=== PATIENT | female | born 1985 | race Caucasian/White ===

== ENCOUNTER 2016-09-16 12:07 | Emergency (ER) | payer SELFPAY ==
[~2016-09-16] VITALS: Ht 160 cm; Wt 113.4 kg
[~2016-09-16 12:07] MED LIST: AC325T PO; ACET-789 PO; ALB0.5V; ALBU17AE23; ALBU17AE23 INH; ALBU17AE3; ALBU17AE3 IH; ALPR.25T PO; ALPR1T PO; ALPR2TAB2 PO; AMOX-97 PO; AMOX500C2 PO; AZIT-21 PO; AZTH250C PO; BUDE6HFA; CEFD300C3 PO; CEFP250T2; CEFU250T PO; CEFU250T11 PO; CEPH-507 PO; CEPH500C PO; CETI10CA PO; CLIN-62 PO; CLOT45CR46 TOP; CPR500T PO; CRS350T PO; CYCL-97 PO; CYCL10TA9 PO; DARVOCET; DICL100G18 TP; DICY20TA57 PO; DIPH25TA82 PO; DOXY100C2 PO; DOXY100T61 PO; DULO30CA PO; EPIN0.3A3 IJ; EPIN0.3P3 IM; FAMO20TA5 PO; FLUO20CA42 PO; GABA-488 PO; GFN600TCR; GFN600TCR PO; GLYC30DR4 OP; HYDR-3583 PO; HYDR-3781 PO; HYDR1TAB PO; HYOS0.1216 PO; IBP800T PO; IBUP-1773 PO; INDO25CA PO; LISI-552 PO; LSNP10T PO; MECL-133 PO; MECL25TA3 PO; METF500T4 PO; METH4TAB PO; METR500T PO; MNTL10T; MTF500T PO; NAPR-243 PO; NAPR-248 PO; NAPR550T PO; NITR-65 PO; NITR100C3 PO; NPPH15OP OD; OMEP-10 PO; OMEP20CA12 PO; ONDA-42 PO; ONDA8TAB13 PO; ONDAN4ODT PO; PARO37.512 PO; PHEN100T26 PO; PHEN118S12 PO; PHEN15CA67 PO; PHEN200T27 PO; POLY119P5 PO; PRCD5U PO; PRD20T PO; PRDM473B PO; PRED20TA PO; PRM25T PO; PROM25TA14 PO; PSEU1TAB PO; QUET100T PO; SERT25TA PO; SLEEPING PILL PO; SULF-222 PO; SULF1TAB35 PO; SULF1TAB38 PO; TR5C15 TOP; TRAM50TA2 PO; TRAMADOL; TRAZ-144 PO; VIBRID PO; WATER PILL; ZLP10T PO; ZLP5T PO; [UNRECOGNIZED DRUG - REMARK]
--- NOTE | 2016-09-16 12:23 | ED Upper Extremity ---
General Chief Complaint: Upper Extremity Stated Complaint: R HAND/WRIST INJ Source: patient Exam Limitations: no limitations History of Present Illness Time seen by provider: 12:21 Initial Comments To ER with pain to the volar side/radial side of the right wrist that began at 330 a.m. this morning when she was in an argument over the telephone with her boyfriend and decided to punch a wall. Pain radiates from the wrist down to the pointer finger. Onset: this morning Severity: moderate Pain/Injury Location: right wrist, right hand Method of Injury: direct blow Modifying Factors: Worse With Movement Allergies and Home Medications Allergies Coded Allergies: guaifenesin (Verified Allergy, Intermediate, ANAPHYLAXIS, 03/28/12) Iodinated Contrast Media - IV Dye (Unverified Allergy, Mild, 11/11/11) amoxicillin (Verified Allergy, Mild, RASH-VOMITTING, 05/09/11) hydrocodone (Verified Allergy, Mild, RASH-VOMITTING, 05/09/11) Metronidazole HCl (Verified Allergy, Unknown, 12/23/13) codeine (Unverified Allergy, Unknown, 12/28/14) ketorolac tromethamine (Verified Allergy, Unknown, 12/23/13) levofloxacin (Unverified Allergy, Unknown, 12/23/13) metronidazole (Verified Allergy, Unknown, 12/23/13) Uncoded Allergies: Catfish (Allergy, Intermediate, 12/28/14) Shortness of air Shell fish (Allergy, Unknown, 12/28/14) Home Medications No Active Prescriptions or Reported Meds Constitutional: see HPI EENTM: see HPI Respiratory: no symptoms reported Genitourinary: no symptoms reported Musculoskeletal: see HPI Skin: no symptoms reported Psychiatric/Neurological: No Symptoms Reported Past Jlzthwx-Yymnxj-Pgfrob Hx Patient Social History Former Smoker/When Quit: May 28, 2008 Recent Foreign Travel: No Contact w/Someone Who Travel: No Recent Hopitalizations: No Immunizations Up To Date Tetanus Booster (TDap): More than 5yrs Seasonal Allergies Seasonal Allergies: No Surgeries HX Surgeries: Yes ("CYST" REMOVED FROM NECK AND LEFT ARM) Surgeries: Gallbladder, Orthopedic, Tubal Ligation Respiratory Hx Respiratory Disorders: Yes Respiratory Disorders: Asthma Cardiovascular Hx Cardiac Disorders: Yes Cardiac Disorders: Hypertension Neurological Hx Neurological Disorders: Yes Neurological Disorders: Headaches /Migraines, Neuropathy, Vertigo 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 System Hx 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 Disorders: No Sexually Transmitted Disease: No Female 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 Disorders: 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 [employer]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 Genitourinary Hx Genitourinary Disorders: No Gastrointestinal Hx Gastrointestinal Disorders: No Musculoskeletal Hx Musculoskeletal Disorders: Yes Musculoskeletal Disorders: Degenerate Disk Disease, Chronic Back Pain, Fractures Endocrine Hx Endocrine Disorders: Yes ("borderline diabetic") Endocrine Disorders: Diabetes, Non-Insulin dep HEENT HX ENT Disorders: Yes HEENT Disorders: Chronic Ear Infection Hearing Impairment: Hard of Hearing Cancer Hx Cancer: No Psychosocial Hx Psychiatric Problems: Yes (OCD) Behavioral Health Disorders: ADD/ADHD, Anxiety, PTSD, Bipolar, Depression Integumentary HX Skin/Integumentary Disorder: No Skin/Integumentary Disorders: Recent Skin Changes Blood Transfusions Hx Blood Disorders: No Adverse Reaction to a Blood Tr: No Family Medical History Significant Family History: No Pertinent Family Hx, Cancer, Diabetes, Hypertension Physical Exam Vital Signs Capillary Refill : General Appearance: WD/WN, no apparent distress HEENT: PERRL/EOMI, normal ENT inspection Neck: non-tender, full range of motion Respiratory: no respiratory distress, no accessory muscle use Gastrointestinal: normal bowel sounds, non tender, soft Shoulder: normal inspection, non-tender Elbow/Forearm: normal inspection, non-tender, Right Wrist: Yes pain, Yes soft tissue tenderness (no swelling erythema ecchymosis or abrasion) Neurologic/Psychiatric: alert, normal mood/affect, oriented x 3 Skin: normal color, warm/dry Progress/Results/Core Measures Results/Orders My Orders Orders - GEOVANNA RIVERS APRN Wrist, Right, 3 Views Or More (09/16/16 12:21) Departure Impression Impression: Primary Impression: Contusion of wrist Disposition: 01 HOME, SELF-CARE Condition: Stable Departure-Patient Inst. Decision time for Depature: 12:23 Referrals: [facility] (PCP/Family) Primary Care Physician Patient Instructions: Common Wrist Injuries Add. Discharge Instructions: 1. Tylenol and Motrin as needed for pain 2. Follow-up with her doctor next week for any persistent pain 3. All discharge instructions reviewed with patient and/or family. Voiced understanding. Scripts No Active Prescriptions or Reported Meds GEOVANNA RIVERS APRN Sep 16, 2016 12:22
--- NOTE | 2016-09-16 12:42 | Diagnostic Imaging Report ---
INDICATION: Right wrist injury 3 views of the right wrist show no fracture, dislocation or other acute abnormalities. IMPRESSION: Negative right wrist Dictated by: Dictated on workstation # [id number]
[2016-09-16 12:46] VITALS: BP 143/87
[2016-09-17] MEDS ORDERED: ONDA8TAB9 PO (11:36)
[2016-09-17] MEDS ORDERED: BENZ-13 PO (11:36)
== END 2016-09-16 12:46 | disposition home or self-care (01) ==
LOC: EDUNIT# 12:07 → ER 12:10
DX: S60.211A Contusion of right wrist, initial encounter (principal); I10 Essential (primary) hypertension; W22.01XA Walked into wall, initial encounter; Y92.009 Unspecified place in unspecified non-institutional (private) residence as the place of occurrence of the external cause; Y99.8 Other external cause status
CPT/HCPCS: 73110; 99282

== ENCOUNTER 2016-09-17 11:31 | Emergency (ER) | payer SELFPAY ==
[~2016-09-17] VITALS: Ht 160 cm; Wt 113.4 kg
[2016-09-17] MEDS ORDERED: BENZ-13 PO (11:36)
[2016-09-17] MEDS ORDERED: ONDA8TAB9 PO (11:36)
--- NOTE | 2016-09-17 11:36 | ED Cough/URI ---
General Stated Complaint: COUGH/VOMITING Source: patient Exam Limitations: no limitations History of Present Illness Time seen by provider: 11:35 Initial Comments Patient was seen yesterday for wrist injury. She presents today for nausea, vomiting, cough, sore throat. Cough is nonproductive. She reports fever up to 99. Timing/Duration: just prior to arrival Severity/Quality: mild Associated Symptoms: cough, fever/chills, sore throat Allergies and Home Medications Allergies Coded Allergies: guaifenesin (Verified Allergy, Intermediate, ANAPHYLAXIS, 03/28/12) Iodinated Contrast Media - IV Dye (Unverified Allergy, Mild, 11/11/11) amoxicillin (Verified Allergy, Mild, RASH-VOMITTING, 05/09/11) hydrocodone (Verified Allergy, Mild, RASH-VOMITTING, 05/09/11) Metronidazole HCl (Verified Allergy, Unknown, 12/23/13) codeine (Unverified Allergy, Unknown, 12/28/14) ketorolac tromethamine (Verified Allergy, Unknown, 12/23/13) levofloxacin (Unverified Allergy, Unknown, 12/23/13) metronidazole (Verified Allergy, Unknown, 12/23/13) Uncoded Allergies: Catfish (Allergy, Intermediate, 12/28/14) Shortness of air Shell fish (Allergy, Unknown, 12/28/14) Home Medications Benzonatate 100 Mg Capsule, 100 MG PO TID, #21 Prescribed by: GEOVANNA RIVERS on 09/17/16 1136 Ondansetron 8 Mg Tab.rapdis, 8 MG PO Q6H PRN for NAUSEA/VOMITING-1ST LINE, #10 Prescribed by: GEOVANNA RIVERS on 09/17/16 1136 Constitutional: see HPI, chills, fever EENTM: see HPI, throat pain Respiratory: see HPI, cough Genitourinary: no symptoms reported Musculoskeletal: no symptoms reported Skin: no symptoms reported Psychiatric/Neurological: No Symptoms Reported Hematologic/Lymphatic: No Symptoms Reported Immunological/Allergic: no symptoms reported Past Pjpvwtw-Otfcsu-Kkthxg Hx Patient Social History Former Smoker/When Quit: May 28, 2008 2nd Hand Smoke Exposure: No Recent Foreign Travel: No Contact w/Someone Who Travel: No Recent Hopitalizations: No Immunizations Up To Date Tetanus Booster (TDap): More than 5yrs Seasonal Allergies Seasonal Allergies: No Surgeries HX Surgeries: Yes ("CYST" REMOVED FROM NECK AND LEFT ARM) Surgeries: Gallbladder, Orthopedic, Tubal Ligation Respiratory Hx Respiratory Disorders: Yes Respiratory Disorders: Asthma Cardiovascular Hx Cardiac Disorders: Yes Cardiac Disorders: Hypertension Neurological Hx Neurological Disorders: Yes Neurological Disorders: Headaches /Migraines, Neuropathy, Vertigo 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 System Hx 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 Disorders: No Sexually Transmitted Disease: No 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 Genitourinary Hx Genitourinary Disorders: No Gastrointestinal Hx Gastrointestinal Disorders: No Musculoskeletal Hx Musculoskeletal Disorders: Yes Musculoskeletal Disorders: Degenerate Disk Disease, Chronic Back Pain, Fractures Endocrine Hx Endocrine Disorders: Yes ("borderline diabetic") Endocrine Disorders: Diabetes, Non-Insulin dep HEENT HX ENT Disorders: Yes HEENT Disorders: Chronic Ear Infection Hearing Impairment: Hard of Hearing Cancer Hx Cancer: No Psychosocial Hx Psychiatric Problems: Yes (OCD) Behavioral Health Disorders: ADD/ADHD, Anxiety, PTSD, Bipolar, Depression Integumentary HX Skin/Integumentary Disorder: No Skin/Integumentary Disorders: Recent Skin Changes Blood Transfusions Hx Blood Disorders: No Adverse Reaction to a Blood Tr: No Family Medical History Significant Family History: No Pertinent Family Hx, Cancer, Diabetes, Hypertension Physical Exam Vital Signs Capillary Refill : General Appearance: WD/WN, no apparent distress Eyes: Bilateral Eye EOMI, Bilateral Eye Normal Inspection, Bilateral Eye PERRL HEENT: PERRL/EOMI, normal ENT inspection, TMs normal, pharynx normal Neck: non-tender, full range of motion Respiratory: lungs clear, normal breath sounds, no respiratory distress, no accessory muscle use Cardiovascular: regular rate, rhythm, no murmur Gastrointestinal: normal bowel sounds, non tender, soft Neurologic/Psychiatric: alert, normal mood/affect, oriented x 3 Skin: normal color, warm/dry Departure Impression Impression: Primary Impression: Bronchitis Disposition: 01 HOME, SELF-CARE Condition: Stable Departure-Patient Inst. Decision time for Depature: 11:35 Referrals: [facility] (PCP/Family) Primary Care Physician Patient Instructions: Acute Bronchitis, Adult (DC) Add. Discharge Instructions: 1. See your doctor next week 2. Return to ER for any concerns 3. You may use [id number]-qzhgzxv cough medication Scripts Benzonatate (Tessalon Perle) 100 Mg Capsule 100 MG PO TID, #21 CAP Prov: GEOVANNA RIVERS APRN 09/17/16 Ondansetron (Zofran Odt) 8 Mg Tab.rapdis 8 MG PO Q6H Y for NAUSEA/VOMITING-1ST LINE, #10 TAB Prov: GEOVANNA RIVERS APRN 09/17/16 GEOVANNA RIVERS APRN Sep 17, 2016 11:36
[2016-09-17 11:42] VITALS: BP 140/82
== END 2016-09-17 11:42 | disposition home or self-care (01) ==
LOC: EDUNIT# 11:31 → ER 11:32
DX: J40 Bronchitis, not specified as acute or chronic (principal); I10 Essential (primary) hypertension; Z79.899 Other long term (current) drug therapy
CPT/HCPCS: 99282

== ENCOUNTER 2016-09-22 16:32 | Emergency (ER) | payer SELFPAY ==
[~2016-09-22] VITALS: Ht 160 cm; Wt 113.4 kg
[~2016-09-22 16:32] MED LIST changes: +BENZ-13 PO; +ONDA8TAB9 PO
--- NOTE | 2016-09-22 16:49 | ED Abdominal Pain ---
General Stated Complaint: R SIDE PAIN Source of Information: Patient Exam Limitations: No Limitations History of Present Illness Time Seen By Provider: 16:49 Initial Comments 3 days of RUQ pain without fevers, nausea, vomiting. 110th visit to ER. Timing/Duration: 2-3 Days Severity/Quality: Moderate Location: RUQ Radiation: No Radiation Activities at Onset: None Associated Symptoms: No Fever/Chills, No Nausea/Vomiting Allergies and Home Medications Allergies Coded Allergies: guaifenesin (Verified Allergy, Intermediate, ANAPHYLAXIS, 03/28/12) Iodinated Contrast Media - IV Dye (Unverified Allergy, Mild, 11/11/11) amoxicillin (Verified Allergy, Mild, RASH-VOMITTING, 05/09/11) hydrocodone (Verified Allergy, Mild, RASH-VOMITTING, 05/09/11) Metronidazole HCl (Verified Allergy, Unknown, 12/23/13) codeine (Unverified Allergy, Unknown, 12/28/14) ketorolac tromethamine (Verified Allergy, Unknown, 12/23/13) levofloxacin (Unverified Allergy, Unknown, 12/23/13) metronidazole (Verified Allergy, Unknown, 12/23/13) Uncoded Allergies: Catfish (Allergy, Intermediate, 12/28/14) Shortness of air Shell fish (Allergy, Unknown, 12/28/14) Home Medications Benzonatate 100 Mg Capsule, 100 MG PO TID, #21 Prescribed by: GEOVANNA RIVERS on 09/17/16 1136 Ondansetron 8 Mg Tab.rapdis, 8 MG PO Q6H PRN for NAUSEA/VOMITING-1ST LINE, #10 Prescribed by: GEOVANNA RIVERS on 09/17/16 1136 Review of Systems Constitutional: see HPI, No chills Respiratory: No Symptoms Reported Cardiovascular: No Symptoms Reported Gastrointestinal: See HPI, Abdominal Pain Genitourinary: No Symptoms Reported Musculoskeletal: no symptoms reported Skin: no symptoms reported Psychiatric/Neurological: No Symptoms Reported Endocrine: No Symptoms Reported Hematologic/Lymphatic: No Symptoms Reported Past Yrukedd-Lenjee-Izjddr Hx Patient Social History Former Smoker/When Quit: May 28, 2008 2nd Hand Smoke Exposure: No Recent Foreign Travel: No Contact w/Someone Who Travel: No Recent Hopitalizations: No Immunizations Up To Date Tetanus Booster (TDap): More than 5yrs Seasonal Allergies Seasonal Allergies: No Surgeries HX Surgeries: Yes ("CYST" REMOVED FROM NECK AND LEFT ARM) Surgeries: Gallbladder, Orthopedic, Tubal Ligation Respiratory Hx Respiratory Disorders: Yes Respiratory Disorders: Asthma Cardiovascular Hx Cardiac Disorders: Yes Cardiac Disorders: Hypertension Neurological Hx Neurological Disorders: Yes Neurological Disorders: Headaches /Migraines, Neuropathy, Vertigo 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 System Hx 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 Disorders: No Sexually Transmitted Disease: No Female 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 Disorders: 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 Genitourinary Hx Genitourinary Disorders: No Gastrointestinal Hx Gastrointestinal Disorders: No Musculoskeletal Hx Musculoskeletal Disorders: Yes Musculoskeletal Disorders: Degenerate Disk Disease, Chronic Back Pain, Fractures Endocrine Hx Endocrine Disorders: Yes ("borderline diabetic") Endocrine Disorders: Diabetes, Non-Insulin dep HEENT HX ENT Disorders: Yes HEENT Disorders: Chronic Ear Infection Hearing Impairment: Hard of Hearing Cancer Hx Cancer: No Psychosocial Hx Psychiatric Problems: Yes (OCD) Behavioral Health Disorders: ADD/ADHD, Anxiety, PTSD, Bipolar, Depression Integumentary HX Skin/Integumentary Disorder: No Skin/Integumentary Disorders: Recent Skin Changes Blood Transfusions Hx Blood Disorders: No Adverse Reaction to a Blood Tr: No Family Medical History Significant Family History: No Pertinent Family Hx, Cancer, Diabetes, Hypertension Physical Exam Vital Signs VS - Last 72 Hours, by Label 09/22/16 16:55 Temp 97.5 Pulse 75 Resp 16 B/P (MAP) 132/70 Pulse Ox 98 O2 Delivery Room Air Capillary Refill : General Appearance: WD/WN HEENT: PERRL/EOMI, normal ENT inspection Neck: non-tender, full range of motion Respiratory: no respiratory distress, no accessory muscle use Cardiovascular: regular rate, rhythm, no murmur Gastrointestinal: normal bowel sounds, soft, tenderness (ruq) Extremities: normal range of motion, non-tender Neurologic/Psychiatric: alert, normal mood/affect, oriented x 3 Skin: normal color, warm/dry Progress/Results/Core Measures Results/Orders Lab Results Laboratory Tests Test 09/22/16 17:00 09/22/16 17:28 Range/Units Urine Color YELLOW Urine Clarity VERY CLOUDY H Urine pH 6.5 5-9 Urine Specific [place] 1.015 L 1.016-1.022 Urine Protein 2+ H NEGATIVE Urine Glucose (UA) NEGATIVE NEGATIVE Urine Ketones NEGATIVE NEGATIVE Urine Nitrite NEGATIVE NEGATIVE Urine Bilirubin 1+ H NEGATIVE Urine Urobilinogen NORMAL NORMAL MG/DL Urine Leukocyte Esterase 3+ H NEGATIVE Urine RBC (Auto) 2+ H NEGATIVE Urine RBC 25-50 H /HPF Urine WBC 50-100 H /HPF Urine Squamous Epithelial Cells >50 H /HPF Urine Crystals NONE /LPF Urine Bacteria FEW H /HPF Urine Casts NONE /LPF Urine Mucus NEGATIVE /LPF Urine Trichomonas FEW H /HPF Urine Culture Indicated NO White Blood Count 12.8 H 4.3-11.0 10^3/uL Red Blood Count 4.51 4.35-5.85 10^6/uL Hemoglobin 12.3 11.5-16.0 G/DL Hematocrit 39 35-52 % Mean Corpuscular Volume 86 80-99 FL Mean Corpuscular Hemoglobin 27 25-34 PG Mean Corpuscular Hemoglobin Concent 32 32-36 G/DL Red Cell Distribution Width 13.8 10.0-14.5 % Platelet Count 348 130-400 10^3/uL Mean Platelet Volume 9.5 7.4-10.4 FL Neutrophils (%) (Auto) 73 42-75 % Lymphocytes (%) (Auto) 20 12-44 % Monocytes (%) (Auto) 6 0-12 % Eosinophils (%) (Auto) 1 0-10 % Basophils (%) (Auto) 0 0-10 % Neutrophils # (Auto) 9.3 H 1.8-7.8 X 10^3 Lymphocytes # (Auto) 2.6 1.0-4.0 X 10^3 Monocytes # (Auto) 0.8 0.0-1.0 X 10^3 Eosinophils # (Auto) 0.1 0.0-0.3 10^3/uL Basophils # (Auto) 0.0 0.0-0.1 10^3/uL My Orders Orders - GEOVANNA RIVERS APRN Ua Culture If Indicated (09/22/16 16:39) Urine Bedside (09/22/16 16:39) Cbc With Automated Diff (09/22/16 16:39) Comprehensive Metabolic Panel (09/22/16 16:39) Urine Culture (09/22/16 17:46) Ceftriaxone Injection (Rocephin Injectio (09/22/16 18:00) Vital Signs/I&O Vital Sign - Last 12Hours 09/22/16 16:55 Temp 97.5 Pulse 75 Resp 16 B/P (MAP) 132/70 Pulse Ox 98 O2 Delivery Room Air Departure Impression Impression: Primary Impression: UTI (urinary tract infection) Disposition: 01 HOME, SELF-CARE Condition: Stable Departure-Patient Inst. Decision time for Depature: 16:49 Referrals: [facility] (PCP/Family) Primary Care Physician Patient Instructions: Urinary Tract Infection, Adult (DC) Add. Discharge Instructions: 1. REturn to ER for any concerns 2. See your doctor next week 3. Antibiotics as directed Scripts Ondansetron (Zofran Odt) 8 Mg Tab.rapdis 8 MG PO Q6H Y for NAUSEA/VOMITING-1ST LINE, #10 TAB Prov: GEOVANNA RIVERS APRN 09/22/16 Cefuroxime Axetil (Cefuroxime) 500 Mg Tablet 500 MG PO BID, #14 TAB Prov: GEOVANNA RIVERS APRN 09/22/16 GEOVANNA RIVERS APRN Sep 22, 2016 16:49
[2016-09-22 17:12] LABS: KETONES,URINE NEGATIVE (NEGATIVE); LEUKOCYTE ESTERASE ,URINE 3+ (NEGATIVE); NITRITE,URINE NEGATIVE (NEGATIVE); PH,URINE 6.5 (5-9); PROTEIN,URINE 2+ (NEGATIVE); UROBILINOGEN,URINE NORMAL (NORMAL)
[2016-09-22 17:35] LABS: BASOPHILS % (AUTO) 0 % (0-10); EOSINOPHILS # (AUTO) 0.1 10^3/uL (0.0-0.3); EOSINOPHILS % (AUTO) 1 % (0-10); LYMPHOCYTES # (AUTO) 2.6 X 10^3 (1.0-4.0); LYMPHOCYTES % (AUTO) 20 % (12-44); MEAN CORPUSCULAR HEMOGLOBIN 27 PG (25-34); MEAN CORPUSCULAR HGB CONC 32 G/DL (32-36); MEAN CORPUSCULAR VOLUME 86 FL (80-99); MEAN PLATELET VOLUME 9.5 FL (7.4-10.4); MONOCYTES # (AUTO) 0.8 X 10^3 (0.0-1.0); MONOCYTES % (AUTO) 6 % (0-12); NEUTROPHILS # (AUTO) 9.3 X 10^3 (1.8-7.8); NEUTROPHILS % (AUTO) 73 % (42-75); PLATELET COUNT 348 10^3/uL (130-400); RED BLOOD COUNT 4.51 10^6/uL (4.35-5.85); RED CELL DISTRIBUTION WIDTH 13.8 % (10.0-14.5); WHITE BLOOD COUNT 12.8 10^3/uL (4.3-11.0)
[2016-09-22 17:41] LABS: BILIRUBIN,URINE 1+ (NEGATIVE)
[2016-09-22 17:42] LABS: SQUAMOUS EPITHELIAL CELL,UR >50 /HPF; TRICHOMONAS,URINE FEW /HPF; WBC,URINE 50-100 /HPF
[2016-09-22] MEDS ORDERED: ONDA8TAB9 PO (17:50)
[2016-09-22] MEDS ORDERED: CEFU500T63 PO (17:50)
[2016-09-22 17:53] LABS: ALANINE AMINOTRANSFERASE 39 U/L (0-55); ANION GAP 11 MMOL/L (5-14); ASPARTATE AMINO TRANSFERASE 28 U/L (5-34); BILIRUBIN,TOTAL 0.6 MG/DL (0.1-1.0); BLOOD UREA NITROGEN 7 MG/DL (7-18); BUN/CREATININE RATIO 9; CALCIUM 9.5 MG/DL (8.5-10.1); CARBON DIOXIDE 24 MMOL/L (21-32); CHLORIDE 105 MMOL/L (98-107); CREATININE SERUM 0.76 MG/DL (0.60-1.30); GFR ESTIMATED > 60; GLUCOSE 89 MG/DL (70-105); POTASSIUM 3.2 MMOL/L (3.6-5.0); SODIUM 140 MMOL/L (135-145); TOTAL PROTEIN 7.3 G/DL (6.4-8.2)
[2016-09-22] MEDS ORDERED: LIDOCAINE 1% INJ 20 ML (XYLOCAINE) VIAL INJ ONE (18:00)
[2016-09-22] MEDS ORDERED: cefTRIAXone 1 GM (ROCEPHIN) VIAL IM ONE (18:00)
[2016-09-22] MEDS ORDERED: cefTRIAXone INJECTION 1,000 MG in NS (IVPB) 50 ML IV ONE (18:00)
[2016-09-22 18:16] VITALS: BP 128/72
== END 2016-09-22 18:16 | disposition home or self-care (01) ==
LOC: EDUNIT# 16:32 → ER 16:33
DX: N39.0 Urinary tract infection, site not specified (principal); I10 Essential (primary) hypertension; Z79.899 Other long term (current) drug therapy
CPT/HCPCS: 36415; 80053; 81000; 84703; 85025; 96372; 99282

== ENCOUNTER 2017-01-25 11:50 | Emergency (ER) | payer SELFPAY ==
[~2017-01-25] VITALS: Ht 160 cm; Wt 64.9 kg
[~2017-01-25 11:50] MED LIST changes: +CEFU500T63 PO; +PHEN15CA PO; -PHEN15CA67 PO
--- OUTSIDE RECORDS SUMMARY | 2017-01-25 11:58 | XMS REPORT | Clinical Summary ---
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 If you do not see the information that you expected, contact Release of Information in the Health Information Management department at [phone] for further assistance in locating additional records.[facility] Allergies Active Allergy Reactions Severity Noted Date Comments Amoxicillin HIVES 06/11/2013 Codeine HIVES 06/11/2013 Iodinated Contrast- Oral SHORTNESS OF BREATH 06/11/2013 And Iv Dye Metronidazole HIVES 06/11/2013 Hydrocodone RASH 06/11/2013 Levofloxacin HIVES 06/11/2013 Guaifenesin HIVES 06/11/2013 Ketorolac HIVES 06/11/2013 Current Medications Prescription Sig. Disp. Refills Start End Date Status Date ALPRAZolam (XANAX) 1 mg Take 1 mg by mouth three Active tablet times daily as needed. sertraline (ZOLOFT) 25 mg Take 25 mg by mouth Active tablet daily. zolpidem (AMBIEN) 5 mg Take 5 mg by mouth at Active tablet bedtime as needed. lisinopril (PRINIVIL; Take 10 mg by mouth Active ZESTRIL) 10 mg tablet daily. Active Problems Problem Noted Date Status post tubal ligation 06/12/2013 Family History Medical History Relation Name Comments Liver Disease Father Heart Disease Maternal Grandfather Diabetes Mother Heart Disease Mother Hypertension Mother Cancer-Colon Paternal Grandfather Cancer-Breast Paternal Grandmother Relation Name Status Comments Father Maternal Grandfather Mother Paternal Grandfather Paternal Grandmother Social History Tobacco Use Types Packs/Day Years Used Date Former Smoker Cigarettes Quit: 01/14/2013 Sex Assigned at Date Recorded Not on file Last Filed Vital Signs Vital Sign Reading Time Taken Blood Pressure 106/80 06/11/2013 3:23 PM [employer] Pulse 90 06/11/2013 3:23 PM [employer] Temperature - - Respiratory Rate - - Oxygen Saturation - - Inhaled Oxygen - - Concentration Weight 121.1 kg (267 lb) 06/11/2013 3:23 PM [employer] Height 160 cm (5' 3") 06/11/2013 3:23 PM [employer] Body Mass Index 47.3 06/11/2013 3:23 PM [employer] Plan of Treatment Health Maintenance Due Date Last Done Comments PHYSICAL (COMPREHENSIVE) 02/12/1991 EXAM PERTUSSIS VACCINE 02/12/1995 TETANUS VACCINE 02/12/2001 CERVICAL CANCER SCREENING 02/12/2014 INFLUENZA VACCINE 01/26/2017 Results Not on filefrom Last 3 Months
[2017-01-25] MEDS ORDERED: IBUPROFEN 800 MG (MOTRIN) TAB PO STA (12:00)
--- NOTE | 2017-01-25 12:05 | ED Lower Extremity ---
General Chief Complaint: Lower Extremity Stated Complaint: LEFT KNEE POPPED OUT PLACE History of Present Illness Time seen by provider: 11:58 Initial Comments Evaluation of left knee pain, the patient states she was in a seated position when she stood up and twisted her left knee popped. She denies any previous histories of injuries to her left knee she has had some previous surgery on her right knee. No pre-arrival treatment. She reports allergy to Toradol, but can take other NSAIDS, patient able to ambulate to remain with antalgic gait. Onset: just prior to arrival Severity: severe (patient reports pain 10/10, conversing without difficulty, no exaggerated pain during exam.) Pain/Injury Location: left knee Method of Injury: twisted Modifying Factors: Improves With Rest Allergies and Home Medications Allergies Coded Allergies: guaifenesin (Verified Allergy, Intermediate, ANAPHYLAXIS, 03/28/12) Iodinated Contrast Media - IV Dye (Unverified Allergy, Mild, 11/11/11) amoxicillin (Verified Allergy, Mild, RASH-VOMITTING, 05/09/11) hydrocodone (Verified Allergy, Mild, RASH-VOMITTING, 05/09/11) Metronidazole HCl (Verified Allergy, Unknown, 12/23/13) codeine (Unverified Allergy, Unknown, 12/28/14) ketorolac tromethamine (Verified Allergy, Unknown, 12/23/13) levofloxacin (Unverified Allergy, Unknown, 12/23/13) metronidazole (Verified Allergy, Unknown, 12/23/13) Uncoded Allergies: Catfish (Allergy, Intermediate, 12/28/14) Shortness of air Shell fish (Allergy, Unknown, 12/28/14) Home Medications Benzonatate 100 Mg Capsule, 100 MG PO TID, #21 Prescribed by: GEOVANNA RIVERS on 09/17/16 1136 Cefuroxime Axetil 500 Mg Tablet, 500 MG PO BID, #14 Prescribed by: GEOVANNA RIVERS on 09/22/16 1750 Ibuprofen 800 Mg Tablet, 800 MG PO Q8H PRN for PAIN, #21 Ref 0 Prescribed by: BRIDGET CHAUDHARY on 01/25/17 1241 Ondansetron 8 Mg Tab.rapdis, 8 MG PO Q6H PRN for NAUSEA/VOMITING-1ST LINE, #10 Prescribed by: GEOVANNA RIVERS on 09/17/16 1136 Ondansetron 8 Mg Tab.rapdis, 8 MG PO Q6H PRN for NAUSEA/VOMITING-1ST LINE, #10 Prescribed by: GEOVANNA RIVERS on 09/22/16 1750 Constitutional: no symptoms reported, see HPI Musculoskeletal: see HPI, joint pain (left knee), No joint swelling, No muscle pain All Other Systems Reviewed Negative Unless Noted: Yes Past Qopsdew-Xdgmca-Gkxupd Hx Patient Social History 2nd Hand Smoke Exposure: No Recent Foreign Travel: No Contact w/Someone Who Travel: No Recent Hopitalizations: No Immunizations Up To Date Tetanus Booster (TDap): More than 5yrs Seasonal Allergies Seasonal Allergies: No Surgeries History of Surgeries: Yes ("CYST" REMOVED FROM NECK AND LEFT ARM) Surgeries: Gallbladder, Orthopedic, Tubal Ligation Respiratory History of Respiratory Disorde: Yes Respiratory Disorders: Asthma Cardiovascular History of Cardiac Disorders: Yes Cardiac Disorders: Hypertension Neurological History of Neurological Disord: Yes Neurological Disorders: Headaches /Migraines, Neuropathy, Vertigo 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 System Hx 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 Disorders: No Sexually Transmitted Disease: No Female 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 Disorders: Denies 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 PILOT History: Tubal Ligation Gastrointestinal History of Gastrointestinal Di: No Musculoskeletal History of Musculoskeletal Dis: Yes Musculoskeletal Disorders: Degenerate Disk Disease, Chronic Back Pain, Fractures Endocrine History of Endocrine Disorders: Yes ("borderline diabetic") Endocrine Disorders: Diabetes, Non-Insulin dep HEENT HEENT Disorders: Chronic Ear Infection Hearing Impairment: Hard of Hearing Cancer History of Cancer: No Psychosocial History of Psychiatric Problem: Yes (OCD) Behavioral Health Disorders: ADD/ADHD, Anxiety, PTSD, Bipolar, Depression Integumentary History of Skin or Integumenta: No Skin/Integumentary Disorders: Recent Skin Changes Blood Transfusions History of Blood Disorders: No Adverse Reaction to a Blood Tr: No Reviewed Nursing Assessment Reviewed/Agree w Nursing PMH: Yes Family Medical History Significant Family History: No Pertinent Family Hx, Cancer, Diabetes, Hypertension Physical Exam Vital Signs Vital Sign - Last 12Hours 01/25/17 11:58 Temp 96.7 Pulse 81 Resp 18 B/P (MAP) 143/86 Pulse Ox 99 O2 Delivery Room Air Capillary Refill : General Appearance: WD/WN, no apparent distress Cardiovascular: normal peripheral pulses, regular rate, rhythm, no edema, no murmur Respiratory: chest non-tender, lungs clear, normal breath sounds Knees: left knee normal inspection, left knee bone tenderness (general lysed), left knee pain, left knee soft tissue tenderness, left knee other (no medial lateral instability, negative Yong and anterior /posterior drawer. Pain with Piter.) Neurologic/Psychiatric: no motor/sensory deficits, alert, normal mood/affect, oriented x 3 Skin: normal color, warm/dry Progress/Results/Core Measures Results/Orders My Orders Orders - BRIDGET CHAUDHARY Ibuprofen Tablet (Motrin Tablet) (01/25/17 12:00) Knee, Left, 3 Views (01/25/17 12:00) Vital Signs/I&O Vital Sign - Last 12Hours 01/25/17 01/25/17 11:58 12:48 Temp 96.7 96.7 Pulse 81 81 Resp 18 18 B/P (MAP) 143/86 Pulse Ox 99 99 O2 Delivery Room Air Progress Note : Time: 11:58 Progress Note Initial evaluation completed, recommended x-rays of the left knee and ibuprofen 800 mg one by mouth. 1230 patient reports improvement in her knee pain, Nelson wrap applied to the left knee. Discharge instructions reviewed with the patient and her mother, all questions answered. Diagnostic Imaging Diagonstic Imaging: Xray Plain Films/CT/US/NM/MRI: knee Comments NAME: MARCIO GONZALES [facility] REC#: [id number] PT STATUS: REG ER : 1985 PHYSICIAN: BRIDGET CHAUDHARY ADMIT DATE: 01/25/17/ER Draft Date of Exam:01/25/17 KNEE, LEFT, 3 VIEWS INDICATION: Left knee pain. AP, oblique, and lateral views of the left knee are obtained. No fracture or acute bony abnormality seen. There is no significant degenerative change. IMPRESSION: Negative left knee. Dictated on workstation # [id number] Dict: 01/25/17 1217 Trans: 01/25/17 1221 [id number] Interpreted by: MARCE SOLOMON MD Electronically signed by: Reviewed: Reviewed by Me Departure Impression Impression: Primary Impression: Left knee pain Qualified Codes: M25.562 - Pain in left knee Disposition: 01 HOME, SELF-CARE Condition: Improved Departure-Patient Inst. Decision time for Depature: 12:30 Referrals: [facility] (PCP/Family) Primary Care Physician Patient Instructions: Knee Sprain (DC) Add. Discharge Instructions: Tylenol 650 mg every 6 hours for pain and ibuprofen 800 mg every 8 hours for pain. Ice to left knee 20 minutes every 2-3 hours. Use Nelson wrap as needed. Activity as tolerated. Return to emergency department for new injuries or problems. Follow-up in 5-7 days with primary care provider if symptoms are not improving. All discharge instructions reviewed with patient and/or family. Voiced understanding. Scripts Ibuprofen (Ibuprofen) 800 Mg Tablet 800 MG PO Q8H Y for PAIN, #21 TAB 0 Refills Prov: BRIDGET CHAUDHARY 01/25/17 BRIDGET CHAUDHARY Jan 25, 2017 12:05
--- NOTE | 2017-01-25 12:22 | Diagnostic Imaging Report ---
INDICATION: Left knee pain. AP, oblique, and lateral views of the left knee are obtained. No fracture or acute bony abnormality seen. There is no significant degenerative change. IMPRESSION: Negative left knee. Dictated by: Dictated on workstation # [id number]
[2017-01-25] MEDS ORDERED: IBUP-1780 PO (12:41)
[2017-01-25 12:48] VITALS: BP 143/86
== END 2017-01-25 12:45 | disposition home or self-care (01) ==
LOC: EDUNIT# 11:50 → ER 11:54
DX: M25.562 Pain in left knee (principal); F41.9 Anxiety disorder, unspecified; F43.10 Post-traumatic stress disorder, unspecified; F31.9 Bipolar disorder, unspecified; F90.9 Attention-deficit hyperactivity disorder, unspecified type; E11.40 Type 2 diabetes mellitus with diabetic neuropathy, unspecified; G43.909 Migraine, unspecified, not intractable, without status migrainosus; I10 Essential (primary) hypertension; Z98.51 Tubal ligation status; X50.0XXA Overexertion from strenuous movement or load, initial encounter
CPT/HCPCS: 73562; 99283

== ENCOUNTER 2017-02-23 14:23 | Emergency (ER) | payer SELFPAY ==
[~2017-02-23] VITALS: Ht 160 cm; Wt 64.9 kg
[~2017-02-23 14:23] MED LIST changes: +IBUP-1780 PO; -PHEN15CA PO; +PHEN15CA67 PO
--- OUTSIDE RECORDS SUMMARY | 2017-02-23 14:29 | XMS REPORT ---
Author Author CHRIS ANTON Organization [facility] Address [address] [place] [address] Care Team Providers Care Air Brush Decorator Name Role Phone CHRIS ANTON Unavailable PROBLEMS Type Condition ICD9-CM Code [id number] Code Onset Dates Condition Status SNOMED Code Problem Lumbago with sciatica, right side M54.41 Active 558507186 Problem Lumbago with sciatica, left side M54.42 Active 555694033 Problem Generalized anxiety disorder F41.1 Active 45782976 Problem Persistent mood [affective] disorder, unspecified F34.9 Active 14605296 Problem Menometrorrhagia N92.1 Active 931544665 Problem Other chronic pain G89.29 Active 96936650 Problem Psychophysiological insomnia F51.04 Active 243285031 Problem Unspecified mood [affective] disorder F39 Active 48891464 ALLERGIES Unknown Allergies SOCIAL HISTORY No smoking Hx information available PLAN OF CARE VITAL SIGNS MEDICATIONS Medication Instructions Dosage Frequency Start Date End Date Duration Status Tramadol HCl 50 mg Orally 3 times a day 1 tablet as needed 8h Oct, May, 07 days Active RESULTS No Results PROCEDURES No Known procedures IMMUNIZATIONS No Known Immunizations
--- OUTSIDE RECORDS SUMMARY | 2017-02-23 14:29 | XMS REPORT | Clinical Summary ---
Author Author [facility] Organization [facility] Address Unknown Phone Unavailable Care Team Providers Care Power Electronics Engineer Name Role Phone PCP Unavailable Source Comments Some departments are not documenting in the electronic medical record. If you do not see the information that you expected, contact Release of Information in the Health Information Management department at [phone] for further assistance in locating additional records.[facility] Allergies Active Allergy Reactions Severity Noted [...] Taken Blood Pressure 106/80 06/11/2013 3:23 PM LANDSCAPING SPECIALIST Pulse 90 06/11/2013 3:23 PM LANDSCAPING SPECIALIST Temperature - - Respiratory Rate - - Oxygen Saturation - - Inhaled Oxygen - - Concentration Weight 121.1 kg (267 lb) 06/11/2013 3:23 PM LANDSCAPING SPECIALIST Height 160 cm (5' 3") 06/11/2013 3:23 PM LANDSCAPING SPECIALIST Body Mass Index 47.3 06/11/2013 3:23 PM LANDSCAPING SPECIALIST Plan of Treatment Health Maintenance Due Date Last Done Comments PHYSICAL (COMPREHENSIVE) 02/12/1991 EXAM PERTUSSIS VACCINE 02/12/1995 TETANUS VACCINE 02/12/2001 CERVICAL CANCER SCREENING 02/12/2014 INFLUENZA VACCINE 02/25/2017 Results Not on filefrom Last 3 Months
--- OUTSIDE RECORDS SUMMARY | 2017-02-23 14:30 | XMS REPORT ---
Author Author KEMAR DUENAS Organization [facility] Address [address] [place] [address] Care Team Providers Care Drug And Alcohol Treatment Specialist Name Role Phone KEMAR DUENAS Unavailable PROBLEMS Type Condition ICD9-CM Code [id number] Code Onset Dates Condition Status SNOMED Code Problem Lumbago with sciatica, right side M54.41 Active 519703572 Problem Lumbago with sciatica, left side M54.42 Active 210707791 Problem Generalized anxiety disorder F41.1 Active 97374588 Problem Persistent mood [affective] disorder, unspecified F34.9 Active 41891344 Problem Menometrorrhagia N92.1 Active 333595678 Problem Other chronic pain G89.29 Active 67399064 Problem Psychophysiological insomnia F51.04 Active 790326225 Problem Unspecified mood [affective] disorder F39 Active 42020695 ALLERGIES Substance Reaction Event Type Date Status Prozac dizziness Drug Allergy May, Active Penicillin V Potassium hives Drug Allergy May, Active Levaquin hives Drug Allergy May, Active Ketorolac Tromethamine hives Drug Allergy May, Active Guaifenesin chest pain Drug Allergy May, Active Flagyl hives Drug Allergy May, Active Codeine Phosphate vomiting, rash Drug Allergy May, Active Shellfish anaphylaxis Non Drug Allergy May, Active Viibryd dizziness Drug Allergy May, Active Iv Dye, Iodine Containing Contrast Media Unknown Non Drug Allergy May, Active Fish anaphylaxis Non Drug Allergy May, Active SOCIAL HISTORY No smoking Hx information available PLAN OF CARE Activity Details Follow Up 3 Months Reason:[facility] VITAL SIGNS Height 64.5 in 2016-06-22 Weight 258 lbs 2016-06-22 Temperature 98.3 degrees Fahrenheit 2016-06-22 Heart Rate 82 bpm 2016-06-22 Respiratory Rate 18 2016-06-22 BMI 43.60 kg/m2 2016-06-22 Blood pressure systolic 130 mmHg 2016-06-22 Blood pressure diastolic 78 mmHg 2016-06-22 MEDICATIONS Medication Instructions Dosage Frequency Start Date End Date Duration Status EPINEPHrine HCl 0.1 MG/ML Injection PRN as directed Dec, 30 days Active RESULTS Name Result Date Reference Range A1C (IN HOUSE) 2016-06-22 A1C IN HOUSE 5.0 4.3 - 5.6 % Previous A1c na Lot [id number] Exp date 02/2018 PROCEDURES Procedure Date Ordered Related Diagnosis Body Site GLYCATED HEMOGLOBIN TEST Jun 22, 2016 Office Visit, Est Pt., Level 4 Jun 22, 2016 IMMUNIZATIONS No Known Immunizations
[2017-02-23 15:08] LABS: BASOPHILS % (AUTO) 0 % (0-10); EOSINOPHILS % (AUTO) 0 % (0-10); LYMPHOCYTES # (AUTO) 0.9 X 10^3 (1.0-4.0); LYMPHOCYTES % (AUTO) 5 % (12-44); MEAN CORPUSCULAR HEMOGLOBIN 27 PG (25-34); MEAN CORPUSCULAR HGB CONC 32 G/DL (32-36); MEAN CORPUSCULAR VOLUME 84 FL (80-99); MEAN PLATELET VOLUME 9.3 FL (7.4-10.4); MONOCYTES # (AUTO) 1.2 X 10^3 (0.0-1.0); MONOCYTES % (AUTO) 6 % (0-12); NEUTROPHILS # (AUTO) 17.2 X 10^3 (1.8-7.8); NEUTROPHILS % (AUTO) 89 % (42-75); PLATELET COUNT 322 10^3/uL (130-400); RED BLOOD COUNT 4.45 10^6/uL (4.35-5.85); RED CELL DISTRIBUTION WIDTH 13.9 % (10.0-14.5); WHITE BLOOD COUNT 19.3 10^3/uL (4.3-11.0)
--- NOTE | 2017-02-23 15:20 | ED General ---
General Chief Complaint: Cough/Cold/Flu Symptoms Stated Complaint: SORE THROAT, FEVER 101.5 Nursing Triage Note: C/O SORETHROAT AND FEVER REPORTS HAS NOT TAKEN ANY TYLENOL DUE TO SEE CAN'T AFFORD IT. Nursing Sepsis Screen: No Definite Risk Source of Information: Patient Exam Limitations: No Limitations History of Present Illness Time Seen by Provider: 15:19 Initial Comments The patient is a 32-year-old white female with 135 previous contacts. She presents today with chief complaint of fever and sore throat. She has not taken any ibuprofen or Tylenol. She reports that she does not have the money to purchase these. She denies cough or shortness of breath. She reports she has just general aching and malaise Timing/Duration: 12 Hours Associated Systoms: Fever/Chills Allergies and Home Medications Allergies Coded Allergies: guaifenesin (Verified Allergy, Intermediate, ANAPHYLAXIS, 03/28/12) Iodinated Contrast Media - IV Dye (Unverified Allergy, Mild, 11/11/11) amoxicillin (Verified Allergy, Mild, RASH-VOMITTING, 05/09/11) hydrocodone (Verified Allergy, Mild, RASH-VOMITTING, 05/09/11) Metronidazole HCl (Verified Allergy, Unknown, 12/23/13) codeine (Unverified Allergy, Unknown, 12/28/14) ketorolac tromethamine (Verified Allergy, Unknown, 12/23/13) levofloxacin (Unverified Allergy, Unknown, 12/23/13) metronidazole (Verified Allergy, Unknown, 12/23/13) Uncoded Allergies: Catfish (Allergy, Intermediate, 12/28/14) Shortness of air Shell fish (Allergy, Unknown, 12/28/14) Home Medications Ibuprofen 800 Mg Tablet, 800 MG PO Q8H PRN for PAIN, #21 Ref 0 Prescribed by: BRIDGET CHAUDHARY on 01/25/17 1241 Constitutional: see HPI, fever EENTM: throat pain Respiratory: no symptoms reported Cardiovascular: no symptoms reported Gastrointestinal: no symptoms reported Genitourinary: no symptoms reported Musculoskeletal: no symptoms reported Skin: no symptoms reported Psychiatric/Neurological: No Symptoms Reported Hematologic/Lymphatic: No Symptoms Reported Immunological/Allergic: no symptoms reported Past Hrqnmcl-Ewnsth-Cfohfo Hx Patient Social History Alcohol Use: Denies Use Recreational Drug Use: No 2nd Hand Smoke Exposure: No Recent Foreign Travel: No Contact w/Someone Who Travel: No Recent Infectious Disease Expo: No Recent Hopitalizations: No Immunizations Up To Date Tetanus Booster (TDap): More than 5yrs Seasonal Allergies Seasonal Allergies: No Surgeries History of Surgeries: Yes ("CYST" REMOVED FROM NECK AND LEFT ARM) Surgeries: Gallbladder, Orthopedic, Tubal Ligation Respiratory History of Respiratory Disorde: Yes Respiratory Disorders: Asthma Cardiovascular History of Cardiac Disorders: Yes Cardiac Disorders: Hypertension Neurological History of Neurological Disord: Yes Neurological Disorders: Headaches /Migraines, Neuropathy, Vertigo 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 System Hx 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 Disorders: No Sexually Transmitted Disease: No Female 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 Disorders: Denies FINANCIAL 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 ADVISOR History: Tubal Ligation Gastrointestinal History of Gastrointestinal Di: No Musculoskeletal History of Musculoskeletal Dis: Yes Musculoskeletal Disorders: Degenerate Disk Disease, Chronic Back Pain, Fractures Endocrine History of Endocrine Disorders: Yes ("borderline diabetic") Endocrine Disorders: Diabetes, Non-Insulin dep HEENT HEENT Disorders: Chronic Ear Infection Hearing Impairment: Hard of Hearing Cancer History of Cancer: No Psychosocial History of Psychiatric Problem: Yes (OCD) Behavioral Health Disorders: ADD/ADHD, Anxiety, PTSD, Bipolar, Depression Integumentary History of Skin or Integumenta: No Skin/Integumentary Disorders: Recent Skin Changes Blood Transfusions History of Blood Disorders: No Adverse Reaction to a Blood Tr: No Family Medical History Significant Family History: No Pertinent Family Hx, Cancer, Diabetes, Hypertension Physical Exam Vital Signs Vital Sign - Last 12Hours 02/23/17 14:50 Temp 99.3 Pulse 92 Resp 18 B/P (MAP) 144/71 Capillary Refill : Less Than 3 Seconds General Appearance: Mild Distress Eyes: Bilateral Eye Normal Inspection HEENT: Pharyngeal Erythema Neck: Full Range of Motion, Normal Inspection Respiratory: Chest Non Tender, Lungs Clear, Normal Breath Sounds, No Accessory Muscle Use, No Respiratory Distress Cardiovascular: Regular Rate, Rhythm, No Edema, No Gallop, No JVD, No Murmur, Normal Peripheral Pulses Gastrointestinal: Normal Bowel Sounds, No Organomegaly, No Pulsatile Mass, Non Tender, Soft Progress/Results/Core Measures Results/Orders Lab Results Laboratory Tests Test 02/23/17 14:54 02/23/17 15:00 Range/Units Group A Streptococcus Screen NEGATIVE NEGATIVE White Blood Count 19.3 H 4.3-11.0 10^3/uL Red Blood Count 4.45 4.35-5.85 10^6/uL Hemoglobin 12.0 11.5-16.0 G/DL Hematocrit 38 35-52 % Mean Corpuscular Volume 84 80-99 FL Mean Corpuscular Hemoglobin 27 25-34 PG Mean Corpuscular Hemoglobin Concent 32 32-36 G/DL Red Cell Distribution Width 13.9 10.0-14.5 % Platelet Count 322 130-400 10^3/uL Mean Platelet Volume 9.3 7.4-10.4 FL Neutrophils (%) (Auto) 89 H 42-75 % Lymphocytes (%) (Auto) 5 L 12-44 % Monocytes (%) (Auto) 6 0-12 % Eosinophils (%) (Auto) 0 0-10 % Basophils (%) (Auto) 0 0-10 % Neutrophils # (Auto) 17.2 H 1.8-7.8 X 10^3 Lymphocytes # (Auto) 0.9 L 1.0-4.0 X 10^3 Monocytes # (Auto) 1.2 H 0.0-1.0 X 10^3 Eosinophils # (Auto) 0.0 0.0-0.3 10^3/uL Basophils # (Auto) 0.0 0.0-0.1 10^3/uL Neutrophils % (Manual) 90 % Lymphocytes % (Manual) 5 % Monocytes % (Manual) 2 % Eosinophils % (Manual) 0 % Basophils % (Manual) 0 % Band Neutrophils 2 % Reactive Lymphocytes 1 % Blood Morphology Comment NORMAL My Orders Orders - NAYELY DANIEL MD Cbc With Automated Diff (02/23/17 14:45) Rapid Strep A Screen (02/23/17 14:45) Manual Differential (02/23/17 15:00) Chest 1 View, Ap/Pa Only (02/23/17 15:15) Vital Signs/I&O Vital Sign - Last 12Hours 02/23/17 14:50 Temp 99.3 Pulse 92 Resp 18 B/P (MAP) 144/71 Blood Pressure Mean: 95 Departure Communication (Admissions) Progress Notes 1530 chest x-ray is reviewed by me suggest some prominence in the right sub- hilar region. Impression Impression: Primary Impression: Upper respiratory infection Additional Impression: granulocytosis Disposition: 01 HOME, SELF-CARE Condition: Stable/Unchanged Departure-Patient Inst. Decision time for Depature: 15:43 Referrals: [facility] (PCP/Family) Primary Care Physician Patient Instructions: Viral Upper Respiratory Infection, Adult (DC) Add. Discharge Instructions: All discharge instructions reviewed with patient and/or family. Voiced understanding. Lots of liquids. Extra rest. Ibuprofen 600 mg every 6 hours or acetaminophen 1000 mg every 6 hours as needed for temperature greater than 101 NAYELY DANIEL MD Feb 23, 2017 15:20
[2017-02-23 15:31] LABS: BAND NEUTROPHILS 2 %; BASOPHILS % (MANUAL) 0 %; EOSINOPHILS % (MANUAL) 0 %; LYMPHOCYTES % (MANUAL) 5 %; NEUTROPHILS % (MANUAL) 90 %; REACTIVE LYMPHOCYTES 1 %
--- NOTE | 2017-02-23 15:31 | Diagnostic Imaging Report ---
INDICATION: Cough and congestion x2 days. COMPARISON: 07/16/2015. FINDINGS: Portable chest shows the lungs to be clear. Heart is not enlarged. There is no pulmonary edema. No hilar adenopathy. No pneumothorax or pleural effusion. IMPRESSION: Normal portable chest. Dictated by: Dictated on workstation # [id number]
[2017-02-23 15:51] VITALS: BP 144/71
== END 2017-02-23 15:51 | disposition home or self-care (01) ==
LOC: EDUNIT# 14:23 → ER 14:26
DX: J06.9 Acute upper respiratory infection, unspecified (principal); D70.9 Neutropenia, unspecified; F43.10 Post-traumatic stress disorder, unspecified; F31.9 Bipolar disorder, unspecified; F32.9 Major depressive disorder, single episode, unspecified; F90.9 Attention-deficit hyperactivity disorder, unspecified type; E11.40 Type 2 diabetes mellitus with diabetic neuropathy, unspecified; M47.9 Spondylosis, unspecified; G43.909 Migraine, unspecified, not intractable, without status migrainosus; I10 Essential (primary) hypertension; Z98.51 Tubal ligation status
CPT/HCPCS: 36415; 71010; 85007; 85027; 87430; 99282

== ENCOUNTER 2017-05-16 22:38 | Emergency (ER) | payer SELFPAY ==
[~2017-05-16] VITALS: Ht 160 cm; Wt 99.8 kg
[~2017-05-16 22:38] MED LIST changes: +PHEN15CA PO; -PHEN15CA67 PO
--- NOTE | 2017-05-17 00:22 | ED Abdominal Pain ---
General Chief Complaint: Abdominal/GI Problems Stated Complaint: ABD PAIN Nursing Triage Note: PT REPORTS R LOWER ABDOMINAL PAIN/CRAMPING AND NAUSEA SINCE YESTERDAY. Sepsis Screen: No Definite Risk Source of Information: Patient, Old Records Exam Limitations: No Limitations History of Present Illness Time Seen By Provider: 00:16 Initial Comments Patient resists ER by private conveyance with chief complaint that about 3 hours prior to arrival she started expressing some right constant upper quadrant abdominal pain. It does not radiate anywhere. She is not having any dysuria or fevers or chills. She's had a normal bowel movement earlier today. She has had nausea and vomiting without blood in it. She has had her gallbladder and some gynecological surgery. She denies any recent trauma. It is not worse with eating moving or defecating. Patient states she's never had this particular pain before and describes it as cramping. Patient denies shortness of breath cough or congestion. Allergies and Home Medications Allergies Coded Allergies: guaifenesin (Verified Allergy, Intermediate, ANAPHYLAXIS, 03/28/12) Iodinated Contrast Media - IV Dye (Unverified Allergy, Mild, 11/11/11) amoxicillin (Verified Allergy, Mild, RASH-VOMITTING, 05/09/11) hydrocodone (Verified Allergy, Mild, RASH-VOMITTING, 05/09/11) Metronidazole HCl (Verified Allergy, Unknown, 12/23/13) codeine (Unverified Allergy, Unknown, 12/28/14) ketorolac tromethamine (Verified Allergy, Unknown, 12/23/13) levofloxacin (Unverified Allergy, Unknown, 12/23/13) metronidazole (Verified Allergy, Unknown, 12/23/13) Uncoded Allergies: Catfish (Allergy, Intermediate, 12/28/14) Shortness of air Shell fish (Allergy, Unknown, 12/28/14) Home Medications Ibuprofen 800 Mg Tablet, 800 MG PO Q8H PRN for PAIN, #21 Ref 0 Prescribed by: BRIDGET CHAUDHARY on 01/25/17 1241 Review of Systems Constitutional: chills, No fever, No malaise EENTM: No Blurred Vision, No Double Vision Respiratory: Denies Cough, Denies SOA at Rest Cardiovascular: Denies Chest Pain, Denies Lightheadedness Gastrointestinal: See HPI, Denies Abdomen Distended, Abdominal Pain, Denies Constipated, Denies Diarrhea, Nausea Genitourinary: Denies Burning, Denies Discharge Musculoskeletal: No back pain, No joint pain Skin: No pruritus, No rash Past Ntrgrai-Lcoiks-Uscerh Hx Patient Social History Alcohol Use: Denies Use Recreational Drug Use: No Smoking Status: Former Smoker Type Used: Cigarettes Former Smoker, Quit: May 18, 2010 2nd Hand Smoke Exposure: No Recent Foreign Travel: No Contact w/Someone Who Travel: No Recent Infectious Disease Expo: No Recent Hopitalizations: No Physical Abuse: No Sexual Abuse: No Mistreated: No Fear: No Immunizations Up To Date Tetanus Booster (TDap): More than 5yrs Seasonal Allergies Seasonal Allergies: No Surgeries History of Surgeries: Yes ("CYST" REMOVED FROM NECK AND LEFT ARM, R KNEE) Surgeries: Gallbladder, Orthopedic, Tubal Ligation Respiratory History of Respiratory Disorde: Yes Respiratory Disorders: Asthma Cardiovascular History of Cardiac Disorders: Yes Cardiac Disorders: Hypertension Neurological History of Neurological Disord: Yes Neurological Disorders: Headaches /Migraines, Neuropathy, Vertigo 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 System Hx 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 Disorders: No Sexually Transmitted Disease: No Female 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 Disorders: Denies 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 Gastrointestinal History of Gastrointestinal Di: No Musculoskeletal History of Musculoskeletal Dis: Yes Musculoskeletal Disorders: Degenerate Disk Disease, Chronic Back Pain, Fractures Endocrine History of Endocrine Disorders: Yes ("borderline diabetic") Endocrine Disorders: Diabetes, Non-Insulin dep HEENT HEENT Disorders: Chronic Ear Infection Hearing Impairment: Hard of Hearing Cancer History of Cancer: No Psychosocial History of Psychiatric Problem: Yes (OCD) Behavioral Health Disorders: ADD/ADHD, Anxiety, PTSD, Bipolar, Depression Suicide Risk Score: 1 Integumentary History of Skin or Integumenta: No Skin/Integumentary Disorders: Recent Skin Changes Blood Transfusions History of Blood Disorders: No Adverse Reaction to a Blood Tr: No Family Medical History Significant Family History: No Pertinent Family Hx, Cancer, Diabetes, Hypertension Physical Exam Vital Signs VS - Last 72 Hours, by Label 05/16/17 23:28 Temp 98.7 Pulse 93 Resp 18 B/P (MAP) 138/92 (107) Pulse Ox 97 Capillary Refill : Less Than 3 Seconds General Appearance: WD/WN, obese HEENT: PERRL/EOMI, pharynx normal Neck: non-tender, supple, normal inspection Respiratory: lungs clear, normal breath sounds, no respiratory distress Cardiovascular: normal peripheral pulses, regular rate, rhythm Gastrointestinal: normal bowel sounds, soft, no organomegaly, No guarding, No rebound, tenderness (right flank and right upper quadrant but negative for Hale sign. No tenderness over McBurney's point.), No mass, No hepatomegaly, No spleenomegaly, other (right costovertebral angle tenderness to percussion.) Extremities: normal inspection, normal capillary refill Back: normal inspection, CVA tenderness (R) Neurologic/Psychiatric: alert, oriented x 3 Skin: normal color, warm/dry Progress/Results/Core Measures Results/Orders Lab Results Laboratory Tests Test 05/16/17 23:26 05/17/17 00:30 Range/Units Urine Color YELLOW Urine Clarity SLIGHTLY CLOUDY Urine pH 5 5-9 Urine Specific [place]on 1.020 1.016-1.022 Urine Protein NEGATIVE NEGATIVE Urine Glucose (UA) NEGATIVE NEGATIVE Urine Ketones NEGATIVE NEGATIVE Urine Nitrite NEGATIVE NEGATIVE Urine Bilirubin NEGATIVE NEGATIVE Urine Urobilinogen NORMAL NORMAL MG/DL Urine Leukocyte Esterase 3+ H NEGATIVE Urine RBC (Auto) 4+ H NEGATIVE Urine RBC 0-2 /HPF Urine WBC 5-10 H /HPF Urine Squamous Epithelial Cells 10-25 H /HPF Urine Crystals PRESENT H /LPF Urine Amorphous Sediment FEW CALEB URATES H /LPF Urine Bacteria MODERATE H /HPF Urine Casts NONE /LPF Urine Mucus LARGE H /LPF Urine Culture Indicated YES Urine Test NEGATIVE NEGATIVE White Blood Count 15.8 H 4.3-11.0 10^3/uL Red Blood Count 4.13 L 4.35-5.85 10^6/uL Hemoglobin 11.5 11.5-16.0 G/DL Hematocrit 36 35-52 % Mean Corpuscular Volume 87 80-99 FL Mean Corpuscular Hemoglobin 28 25-34 PG Mean Corpuscular Hemoglobin Concent 32 32-36 G/DL Red Cell Distribution Width 13.6 10.0-14.5 % Platelet Count 375 130-400 10^3/uL Mean Platelet Volume 9.6 7.4-10.4 FL Neutrophils (%) (Auto) 76 H 42-75 % Lymphocytes (%) (Auto) 17 12-44 % Monocytes (%) (Auto) 7 0-12 % Eosinophils (%) (Auto) 0 0-10 % Basophils (%) (Auto) 0 0-10 % Neutrophils # (Auto) 12.0 H 1.8-7.8 X 10^3 Lymphocytes # (Auto) 2.7 1.0-4.0 X 10^3 Monocytes # (Auto) 1.1 H 0.0-1.0 X 10^3 Eosinophils # (Auto) 0.0 0.0-0.3 10^3/uL Basophils # (Auto) 0.0 0.0-0.1 10^3/uL Neutrophils % (Manual) 76 % Lymphocytes % (Manual) 17 % Monocytes % (Manual) 6 % Eosinophils % (Manual) 0 % Basophils % (Manual) 0 % Band Neutrophils 0 % Reactive Lymphocytes 1 % Blood Morphology Comment NORMAL Sodium Level 140 135-145 MMOL/L Potassium Level 3.1 L 3.6-5.0 MMOL/L Chloride Level 104 98-107 MMOL/L Carbon Dioxide Level 23 21-32 MMOL/L Anion Gap 13 5-14 MMOL/L Blood Urea Nitrogen 8 7-18 MG/DL Creatinine 0.77 0.60-1.30 MG/DL Estimat Glomerular Filtration Rate > 60 BUN/Creatinine Ratio 10 Glucose Level 101 70-105 MG/DL Calcium Level 9.4 8.5-10.1 MG/DL Magnesium Level 2.1 1.8-2.4 MG/DL Total Bilirubin 0.5 0.1-1.0 MG/DL Aspartate Amino Transf (AST/SGOT) 25 5-34 U/L Alanine Aminotransferase (ALT/SGPT) 23 0-55 U/L Alkaline Phosphatase 71 40-136 U/L C-Reactive Protein High Sensitivity 1.59 H 0.00-0.50 MG/DL Total Protein 8.2 6.4-8.2 GM/DL Albumin 3.8 3.2-4.5 GM/DL My Orders Orders - ANGELITA ANGEL Cbc With Automated Diff (05/17/17 00:17) Comprehensive Metabolic Panel (05/17/17 00:17) Hs C Reactive Protein (05/17/17 00:17) Hcg,Qualitative Urine (05/17/17 00:17) Magnesium (05/17/17 00:17) Ua Culture If Indicated (05/17/17 00:17) Fentanyl Injection (Sublimaze Injection (05/17/17 00:30) Ondansetron Injection (Zofran Injectio (05/17/17 00:30) Saline Lock/Iv-Start (05/17/17 00:19) Urine Culture (05/16/17 23:26) Manual Differential (05/17/17 00:30) Medications Given in ED Current Medications Medications Dose Ordered Sig/Felisha Route Start Time Stop Time Status Last Admin Dose Admin Fentanyl Citrate 50 mcg ONCE ONCE IVP 05/17/17 00:30 05/17/17 00:31 DC 05/17/17 00:31 50 MCG Ondansetron HCl 4 mg ONCE ONCE IVP 05/17/17 00:30 05/17/17 00:31 DC 05/17/17 00:30 4 MG Vital Signs/I&O Vital Sign - Last 12Hours 05/16/17 23:28 Temp 98.7 Pulse 93 Resp 18 B/P (MAP) 138/92 (107) Pulse Ox 97 Blood Pressure Mean: 107 Progress Note : Time: 01:16 Progress Note Urinalysis has quite a few squames and might be contamination but with her right costovertebral angle tenderness a UTI would explain her symptoms. She has a white count we'll get her treated with some antibiotics and have her follow- up this week with her primary care physician. Either way the pain has improved considerably with pain meds. Departure Impression Impression: Primary Impression: Urinary tract infection Qualified Codes: N30.00 - Acute cystitis without hematuria Disposition: HOME, SELF-CARE Condition: Improved Departure-Patient Inst. Decision time for Depature: 01:20 Referrals: [facility] (PCP/Family) Primary Care Physician Patient Instructions: Urinary Tract Infection, Adult (DC) Add. Discharge Instructions: Drink lots of fluids and plan to follow up with your primary care physician Sunday or Sunday. The antibiotics 1 capsule twice a day for a week. Expect some improvement by day 3 or 4. All discharge instructions reviewed with patient and/or family. Voiced understanding. Scripts Nitrofurantoin Monohyd/M-Cryst (Macrobid 100 mg Capsule) 100 Mg Capsule 1 TAB PO BID for 7 Days, #14 CAP 0 Refills Prov: ANGELITA ANGEL 05/17/17 Copy Copies To 1: STACI WATKINS TITUS J May 17, 2017 00:22
[2017-05-17 00:28] LABS: BILIRUBIN,URINE NEGATIVE (NEGATIVE); KETONES,URINE NEGATIVE (NEGATIVE); LEUKOCYTE ESTERASE ,URINE 3+ (NEGATIVE); NITRITE,URINE NEGATIVE (NEGATIVE); PH,URINE 5 (5-9); PROTEIN,URINE NEGATIVE (NEGATIVE); UROBILINOGEN,URINE NORMAL (NORMAL)
[2017-05-17] MEDS ORDERED: fentaNYL INJECTION 100 MCG/2 ML AMP IVP ONE (00:30)
[2017-05-17] MEDS ORDERED: ONDANSETRON 4 MG/2 ML (SDV) Z0FRAN IVP ONE (00:30)
[2017-05-17 00:43] LABS: BASOPHILS % (AUTO) 0 % (0-10); EOSINOPHILS % (AUTO) 0 % (0-10); LYMPHOCYTES # (AUTO) 2.7 X 10^3 (1.0-4.0); LYMPHOCYTES % (AUTO) 17 % (12-44); MEAN CORPUSCULAR HEMOGLOBIN 28 PG (25-34); MEAN CORPUSCULAR HGB CONC 32 G/DL (32-36); MEAN CORPUSCULAR VOLUME 87 FL (80-99); MEAN PLATELET VOLUME 9.6 FL (7.4-10.4); MONOCYTES # (AUTO) 1.1 X 10^3 (0.0-1.0); MONOCYTES % (AUTO) 7 % (0-12); NEUTROPHILS % (AUTO) 76 % (42-75); PLATELET COUNT 375 10^3/uL (130-400); RED BLOOD COUNT 4.13 10^6/uL (4.35-5.85); RED CELL DISTRIBUTION WIDTH 13.6 % (10.0-14.5); WHITE BLOOD COUNT 15.8 10^3/uL (4.3-11.0)
[2017-05-17 01:06] LABS: BAND NEUTROPHILS 0 %; LYMPHOCYTES % (MANUAL) 17 %; NEUTROPHILS % (MANUAL) 76 %
[2017-05-17 01:07] LABS: ALANINE AMINOTRANSFERASE 23 U/L (0-55); ALBUMIN 3.8 GM/DL (3.2-4.5); ANION GAP 13 MMOL/L (5-14); ASPARTATE AMINO TRANSFERASE 25 U/L (5-34); BASOPHILS % (MANUAL) 0 %; BILIRUBIN,TOTAL 0.5 MG/DL (0.1-1.0); BLOOD UREA NITROGEN 8 MG/DL (7-18); BUN/CREATININE RATIO 10; CALCIUM 9.4 MG/DL (8.5-10.1); CARBON DIOXIDE 23 MMOL/L (21-32); CHLORIDE 104 MMOL/L (98-107); CREATININE SERUM 0.77 MG/DL (0.60-1.30); EOSINOPHILS % (MANUAL) 0 %; GFR ESTIMATED > 60; GLUCOSE 101 MG/DL (70-105); MAGNESIUM 2.1 MG/DL (1.8-2.4); POTASSIUM 3.1 MMOL/L (3.6-5.0); REACTIVE LYMPHOCYTES 1 %; SODIUM 140 MMOL/L (135-145); TOTAL PROTEIN 8.2 GM/DL (6.4-8.2); hs C REACTIVE PROTEIN 1.59 MG/DL (0.00-0.50)
[2017-05-17] MEDS ORDERED: NITR-65 PO (01:22)
[2017-05-17] MEDS ORDERED: NITROFURANTOIN 100 MG (MACROBID) CAPSULE PO ONE (01:30)
[2017-05-17 01:31] VITALS: BP 138/92
--- OUTSIDE RECORDS SUMMARY | 2017-05-17 10:26 | XMS REPORT | Clinical Summary ---
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 If you do not see the information that you expected, contact Release of Information in the Health Information Management department at [phone] for further assistance in locating additional records.[facility] Allergies Active Allergy Reactions Severity Noted Date [...] Taken Blood Pressure 106/80 06/11/2013 3:23 PM [employer]INAL [employer]ICE [employer]YER Pulse 90 06/11/2013 3:23 PM [employer]YER Temperature - - Respiratory Rate - - Oxygen Saturation - - Inhaled Oxygen - - Concentration Weight 121.1 kg (267 lb) 06/11/2013 3:23 PM [employer] Height 160 cm (5' 3") 06/11/2013 3:23 PM [employer]IN[employer]YER Body Mass Index 47.3 06/11/2013 3:23 PM CR[employer]YER Plan of Treatment Health Maintenance Due Date Last Done Comments PHYSICAL (COMPREHENSIVE) 02/12/1991 EXAM PERTUSSIS VACCINE 02/12/1995 TETANUS VACCINE 02/12/2001 CERVICAL CANCER SCREENING 02/12/2014 INFLUENZA VACCINE 12/26/2016 Results Not on filefrom Last 3 Months
== END 2017-05-17 01:31 | disposition home or self-care (01) ==
LOC: EDUNIT# 22:38 → ER 22:39
DX: N39.0 Urinary tract infection, site not specified (principal); J45.909 Unspecified asthma, uncomplicated; I10 Essential (primary) hypertension; G43.909 Migraine, unspecified, not intractable, without status migrainosus; E11.40 Type 2 diabetes mellitus with diabetic neuropathy, unspecified; F90.9 Attention-deficit hyperactivity disorder, unspecified type; F41.9 Anxiety disorder, unspecified; F31.9 Bipolar disorder, unspecified; F43.10 Post-traumatic stress disorder, unspecified; F42.9 Obsessive-compulsive disorder, unspecified; Z87.891 Personal history of nicotine dependence; Z98.51 Tubal ligation status; Z90.49 Acquired absence of other specified parts of digestive tract
CPT/HCPCS: 36415; 80053; 81000; 83735; 84703; 85007; 85027; 86141; 87088; 96374; 96375

== ENCOUNTER 2017-05-25 07:45 | Emergency (ER) | payer SELFPAY ==
[~2017-05-25] VITALS: Ht 160 cm; Wt 104.3 kg
[2017-05-25] MEDS ORDERED: DEXAMETHASONE 10 MG/ML (DECADRON) 1 ML VIAL IM ONE (09:15)
--- NOTE | 2017-05-25 09:18 | ED Cough/URI ---
General Chief Complaint: Cough/Cold/Flu Symptoms Stated Complaint: COLD SYMPTOMS,CHEST CONGESTION Nursing Triage Note: c/o cough/runny nose. Onset 2-3 days ago. Subjective low grade fever. Source: patient Exam Limitations: no limitations History of Present Illness Time seen by provider: 09:06 Initial Comments Here with 3 days of cough, runny nose and congestion as well as subjective fever. Complains of chest congestion as well. 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 States she just feels sick. Timing/Duration: constant, other (3 days) Severity/Quality: mild, dry cough Modifying Factors: Improves With Rest Associated Symptoms: cough, fever/chills, muscle aches, nasal congestion, nasal drainage, shortness of breath, sore throat, wheezing Allergies and Home Medications Allergies Coded Allergies: guaifenesin (Verified Allergy, Intermediate, ANAPHYLAXIS, 03/28/12) Iodinated Contrast Media - IV Dye (Unverified Allergy, Mild, 11/11/11) amoxicillin (Verified Allergy, Mild, RASH-VOMITTING, 05/09/11) hydrocodone (Verified Allergy, Mild, RASH-VOMITTING, 05/09/11) Metronidazole HCl (Verified Allergy, Unknown, 12/23/13) codeine (Unverified Allergy, Unknown, 12/28/14) ketorolac tromethamine (Verified Allergy, Unknown, 12/23/13) levofloxacin (Unverified Allergy, Unknown, 12/23/13) metronidazole (Verified Allergy, Unknown, 12/23/13) Uncoded Allergies: Catfish (Allergy, Intermediate, 12/28/14) Shortness of air Shell fish (Allergy, Unknown, 12/28/14) Home Medications Ibuprofen 800 Mg Tablet, 800 MG PO Q8H PRN for PAIN, #21 Ref 0 Prescribed by: BRIDGET CHAUDHARY on 01/25/17 1241 Nitrofurantoin Monohyd/M-Cryst 100 Mg Capsule, 1 TAB PO BID for 7 Days, #14 Ref 0 Prescribed by: ANGELITA ANGEL on 05/17/17 0122 Constitutional: see HPI, fever, malaise EENTM: nose congestion, throat pain, No ear pain Respiratory: cough, No short of breath, No wheezing Cardiovascular: no symptoms reported Gastrointestinal: no symptoms reported Genitourinary: no symptoms reported Musculoskeletal: no symptoms reported All Other Systems Reviewed Negative Unless Noted: Yes Past Ispbxur-Pdnuin-Hkmryz Hx Patient Social History Alcohol Use: Denies Use Recreational Drug Use: No Type Used: Cigarettes Former Smoker, Quit: May 18, 2010 2nd Hand Smoke Exposure: No Recent Foreign Travel: No Contact w/Someone Who Travel: No Recent Infectious Disease Expo: No Recent Hopitalizations: No Immunizations Up To Date Tetanus Booster (TDap): More than 5yrs Seasonal Allergies Seasonal Allergies: No Surgeries History of Surgeries: Yes ("CYST" REMOVED FROM NECK AND LEFT ARM, R KNEE) Surgeries: Gallbladder, Orthopedic, Tubal Ligation Respiratory History of Respiratory Disorde: Yes Respiratory Disorders: Asthma Cardiovascular History of Cardiac Disorders: Yes Cardiac Disorders: Hypertension Neurological History of Neurological Disord: Yes Neurological Disorders: Headaches /Migraines, Neuropathy, Vertigo 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 System Hx 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 Disorders: No Sexually Transmitted Disease: No Female 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 Disorders: Denies 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 Gastrointestinal History of Gastrointestinal Di: No Musculoskeletal History of Musculoskeletal Dis: Yes Musculoskeletal Disorders: Degenerate Disk Disease, Chronic Back Pain, Fractures Endocrine History of Endocrine Disorders: Yes ("borderline diabetic") Endocrine Disorders: Diabetes, Non-Insulin dep HEENT HEENT Disorders: Chronic Ear Infection Hearing Impairment: Hard of Hearing Cancer History of Cancer: No Psychosocial History of Psychiatric Problem: Yes (OCD) Behavioral Health Disorders: ADD/ADHD, Anxiety, PTSD, Bipolar, Depression Integumentary History of Skin or Integumenta: No Skin/Integumentary Disorders: Recent Skin Changes Blood Transfusions History of Blood Disorders: No Adverse Reaction to a Blood Tr: No Family Medical History Significant Family History: No Pertinent Family Hx, Cancer, Diabetes, Hypertension Physical Exam Vital Signs Vital Sign - Last 12Hours 05/25/17 08:19 Temp 97.3 Pulse 80 Resp 16 B/P (MAP) 135/97 (110) Pulse Ox 98 Capillary Refill : Less Than 3 Seconds General Appearance: WD/WN, no apparent distress HEENT: PERRL/EOMI, pharyngeal erythema, other (moderate rhinorrhea with moderate bilateral nasal congestion and erythema.) Neck: full range of motion, supple Respiratory: lungs clear, normal breath sounds Cardiovascular: regular rate, rhythm, no murmur Gastrointestinal: non tender, soft Extremities: non-tender, normal inspection Neurologic/Psychiatric: alert, oriented x 3 Skin: normal color, warm/dry Progress/Results/Core Measures Suspected Sepsis Recent Fever Within 48 Hours: No Infection Criteria Present: None New/Unexplained Altered Menta: No Sepsis Screen: No Definite Risk Sepsis Diagnosis: SIRS Temperature:97.3 Pulse: 80 Respiratory Rate: 16 Blood Pressure 135 /97 Mean: 110 Results/Orders My Orders Orders - MOSES KATZ MD Dexamethasone Injection (Decadron Inject (05/25/17 09:15) Medications Given in ED Current Medications Medications Dose Ordered Sig/Felisha Route Start Time Stop Time Status Last Admin Dose Admin Dexamethasone Sodium Phosphate 10 mg ONCE ONCE IM 05/25/17 09:15 05/25/17 09:16 DC 05/25/17 09:19 10 MG Vital Signs/I&O Vital Sign - Last 12Hours 05/25/17 08:19 Temp 97.3 Pulse 80 Resp 16 B/P (MAP) 135/97 (110) Pulse Ox 98 Capillary Refill : Less Than 3 Seconds Blood Pressure Mean: 110 Progress Note : Progress Note Seen and evaluated. Decadron 10 mg IM. Discharged home with return rest. Patient verbalize understanding instructions and agreement with plan. Departure Impression Impression: Primary Impression: Upper respiratory infection Qualified Codes: J06.9 - Acute upper respiratory infection, unspecified; B97.89 - Other viral agents as the cause of diseases classified elsewhere Disposition: 01 HOME, SELF-CARE Condition: Stable Departure-Patient Inst. Decision time for Depature: 09:36 Referrals: [facility] [place] (PCP/Family) Primary Care Physician Patient Instructions: Viral Upper Respiratory Infection, Adult (DC) Add. Discharge Instructions: All discharge instructions reviewed with patient and/or family. Voiced understanding. You may take ibuprofen and/or Tylenol as needed for fever or pain. You should use Afrin nasal spray or the generic, 12 hour relief, 2 sprays to each nostril twice daily for 3 days only and then stop. Do not use for more than 3 days. Drink plenty of fluids and get plenty of rest. Return for worse pain, fever, vomiting, weakness, breathing problems or other concerns as needed. Work/School Note: Work Release Form Date Seen in the Emergency Department: May 25, 2017 Return to Work: May 26, 2017 Restrictions: No Restrictions MOSES KATZ MD May 25, 2017 09:18
[2017-05-25 09:50] VITALS: BP 132/90
== END 2017-05-25 09:50 | disposition home or self-care (01) ==
LOC: EDUNIT# 07:45 → ER 07:47
DX: J06.9 Acute upper respiratory infection, unspecified (principal); J45.909 Unspecified asthma, uncomplicated; I10 Essential (primary) hypertension; E11.40 Type 2 diabetes mellitus with diabetic neuropathy, unspecified; F90.9 Attention-deficit hyperactivity disorder, unspecified type; F43.10 Post-traumatic stress disorder, unspecified; F31.9 Bipolar disorder, unspecified; F41.9 Anxiety disorder, unspecified; G43.909 Migraine, unspecified, not intractable, without status migrainosus; Z87.891 Personal history of nicotine dependence; Z98.51 Tubal ligation status
CPT/HCPCS: 99284

== ENCOUNTER 2017-07-04 10:01 | Emergency (ER) | payer SELFPAY ==
[~2017-07-04] VITALS: Ht 160 cm; Wt 98.9 kg
--- NOTE | 2017-07-04 10:58 | ED General ---
General Chief Complaint: Chest Wall/Rib Pain Stated Complaint: RIGHT SIDE PAIN Nursing Triage Note: ONSET OF R RIB PAIN WORSE WITH MOVEMENT. Nursing Sepsis Screen: No Definite Risk Source of Information: Patient Exam Limitations: No Limitations History of Present Illness Date Seen by Provider: Jul 04, 2017 Time Seen by Provider: 10:56 Initial Comments To ER with right lower rib pain worse with movement since awakening yesterday. No known injury. No cough or shortness of breath. This area is very tender to touch Timing/Duration: 1-2 Days Severity: Moderate Associated Systoms: Cough Allergies and Home Medications Allergies Coded Allergies: guaifenesin (Verified Allergy, Intermediate, ANAPHYLAXIS, 03/28/12) Iodinated Contrast Media - IV Dye (Unverified Allergy, Mild, 11/11/11) amoxicillin (Verified Allergy, Mild, RASH-VOMITTING, 05/09/11) hydrocodone (Verified Allergy, Mild, RASH-VOMITTING, 05/09/11) Metronidazole HCl (Verified Allergy, Unknown, 12/23/13) codeine (Unverified Allergy, Unknown, 12/28/14) ketorolac tromethamine (Verified Allergy, Unknown, 12/23/13) levofloxacin (Unverified Allergy, Unknown, 12/23/13) metronidazole (Verified Allergy, Unknown, 12/23/13) Uncoded Allergies: Catfish (Allergy, Intermediate, 12/28/14) Shortness of air Shell fish (Allergy, Unknown, 12/28/14) Home Medications Ibuprofen 800 Mg Tablet, 800 MG PO Q8H PRN for PAIN, #21 Ref 0 Prescribed by: BRIDGET CHAUDHARY on 01/25/17 1241 Constitutional: see HPI EENTM: see HPI Respiratory: no symptoms reported, No cough Cardiovascular: no symptoms reported Genitourinary: no symptoms reported Musculoskeletal: no symptoms reported Skin: no symptoms reported Psychiatric/Neurological: No Symptoms Reported Past Cudvqwd-Bojoqe-Qrpbia Hx Patient Social History Alcohol Use: Denies Use Recreational Drug Use: No Smoking Status: Former Smoker Type Used: Cigarettes Former Smoker, Quit: May 18, 2010 2nd Hand Smoke Exposure: No Recent Foreign Travel: No Contact w/Someone Who Travel: No Recent Infectious Disease Expo: No Recent Hopitalizations: No Immunizations Up To Date Tetanus Booster (TDap): More than 5yrs Seasonal Allergies Seasonal Allergies: No Surgeries History of Surgeries: Yes ("CYST" REMOVED FROM NECK AND LEFT ARM, R KNEE) Surgeries: Gallbladder, Orthopedic, Tubal Ligation Respiratory History of Respiratory Disorde: Yes Respiratory Disorders: Asthma Cardiovascular History of Cardiac Disorders: Yes Cardiac Disorders: Hypertension Neurological History of Neurological Disord: Yes Neurological Disorders: Headaches /Migraines, Neuropathy, Vertigo 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 System Hx 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 Disorders: No Sexually Transmitted Disease: No Female 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 Disorders: 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 Gastrointestinal History of Gastrointestinal Di: No Musculoskeletal History of Musculoskeletal Dis: Yes Musculoskeletal Disorders: Degenerate Disk Disease, Chronic Back Pain, Fractures Endocrine History of Endocrine Disorders: Yes ("borderline diabetic") Endocrine Disorders: Diabetes, Non-Insulin dep HEENT HEENT Disorders: Chronic Ear Infection Hearing Impairment: Hard of Hearing Cancer History of Cancer: No Psychosocial History of Psychiatric Problem: Yes (OCD) Behavioral Health Disorders: ADD/ADHD, Anxiety, PTSD, Bipolar, Depression Integumentary History of Skin or Integumenta: No Skin/Integumentary Disorders: Recent Skin Changes Blood Transfusions History of Blood Disorders: No Adverse Reaction to a Blood Tr: No Family Medical History Significant Family History: No Pertinent Family Hx, Cancer, Diabetes, Hypertension Physical Exam Vital Signs Vital Signs - First Documented 07/04/17 10:16 Temp 97.7 Pulse 79 Resp 18 B/P (MAP) 142/79 (100) Pulse Ox 99 Capillary Refill : Less Than 3 Seconds General Appearance: No Apparent Distress, WD/WN Eyes: Bilateral Eye Normal Inspection, Bilateral Eye PERRL, Bilateral Eye EOMI HEENT: PERRL/EOMI, TMs Normal Neck: Full Range of Motion, Normal Inspection Respiratory: Normal Breath Sounds, No Accessory Muscle Use, No Respiratory Distress, Other (right lower anterolateral chest wall tender to palpation but without erythema rash or ecchymosis) Cardiovascular: Regular Rate, Rhythm, Normal Peripheral Pulses Gastrointestinal: Normal Bowel Sounds, Non Tender, Soft, No Abnormal Bowel Sounds, No Distended, No Guarding, No Hepatomegaly, No Hernia Extremity: Normal Capillary Refill, Normal Inspection Neurologic/Psychiatric: Alert, Oriented x3 Skin: Normal Color, Warm/Dry Progress/Results/Core Measures Suspected Sepsis Recent Fever Within 48 Hours: No Infection Criteria Present: None New/Unexplained Altered Menta: No Sepsis Screen: No Definite Risk Sepsis Diagnosis: SIRS Temperature:97.7 Pulse: 79 Respiratory Rate: 18 Blood Pressure 142 /79 Mean: 100 Results/Orders My Orders Orders - GEOVANNA RIVERS APRN Ribs/Unilateral With Chest (07/04/17 10:54) Vital Signs/I&O Vital Sign - Last 12Hours 07/04/17 10:16 Temp 97.7 Pulse 79 Resp 18 B/P (MAP) 142/79 (100) Pulse Ox 99 Capillary Refill : Less Than 3 Seconds Blood Pressure Mean: 100 Departure Impression Impression: Primary Impression: Chest wall pain Disposition: HOME, SELF-CARE Condition: Stable Departure-Patient Inst. Decision time for Depature: 11:23 Referrals: [facility] [place] (PCP) Primary Care Physician CHRIS ANTON (Family) Primary Care Physician Patient Instructions: Chest Pain (DC) Add. Discharge Instructions: 1. Return to ER for any worsening symptoms such as shortness of breath or fevers , or any rash or blisters that appear over the painful area. 2. Follow-up with your doctor within 48 hours for recheck 3. Tylenol and Motrin for pain control. All discharge instructions reviewed with patient and/or family. Voiced understanding. GEOVANNA RIVERS APRN Jul 04, 2017 10:58
--- NOTE | 2017-07-04 11:36 | Diagnostic Imaging Report ---
INDICATION: Right lower axillary pain. FINDINGS: Right ribs: 4 views show no evidence of rib fractures. No expansile bony lesion. Right lung is clear. There is no pneumothorax or pleural effusion. IMPRESSION: Normal right ribs. Dictated by: Dictated on workstation # [id number]
[2017-07-04 11:43] VITALS: BP 142/79
--- OUTSIDE RECORDS SUMMARY | 2017-07-04 11:53 | XMS REPORT | Clinical Summary ---
Author Author [facility] Organization [facility] Address Unknown Phone Unavailable Care Team Providers Care Order Checker Name Role Phone Vanessa Fernández MD Unavailable Unavailable Source Comments Some departments are not documenting in the electronic medical record. If you do not see the information that you expected, contact Release of Information in the Health Information Management department at [phone] for further assistance in locating additional records.[facility] Allergies Active Allergy Reactions Severity Noted Date [...] Taken Blood Pressure 106/80 06/11/2013 3:23 PM [employer] Pulse 90 06/11/2013 3:23 PM [employer] Temperature - - Respiratory Rate - - Oxygen Saturation - - Inhaled Oxygen - - Concentration Weight 121.1 kg (267 lb) 06/11/2013 3:23 PM [employer] Height 160 cm (5' 3") 06/11/2013 3:23 PM [employer] Body Mass Index 47.3 06/11/2013 3:23 PM [employer] Plan of Treatment Health Maintenance Due Date Last Done Comments PHYSICAL (COMPREHENSIVE) 02/12/1991 EXAM PERTUSSIS VACCINE 02/12/1995 TETANUS VACCINE 02/12/2001 CERVICAL CANCER SCREENING 02/12/2014 INFLUENZA VACCINE 12/26/2016 Results Not on filefrom Last 3 Months
== END 2017-07-04 11:42 | disposition home or self-care (01) ==
LOC: EDUNIT# 10:01 → ER 10:04
DX: R07.9 Chest pain, unspecified (principal); J45.909 Unspecified asthma, uncomplicated; I10 Essential (primary) hypertension; G43.909 Migraine, unspecified, not intractable, without status migrainosus; E11.40 Type 2 diabetes mellitus with diabetic neuropathy, unspecified; F90.9 Attention-deficit hyperactivity disorder, unspecified type; F41.9 Anxiety disorder, unspecified; F31.9 Bipolar disorder, unspecified; F43.10 Post-traumatic stress disorder, unspecified; Z98.51 Tubal ligation status; Z87.891 Personal history of nicotine dependence; Z88.1 Allergy status to other antibiotic agents; Z88.5 Allergy status to narcotic agent; Z88.8 Allergy status to other drugs, medicaments and biological substances; Z88.6 Allergy status to analgesic agent
CPT/HCPCS: 71101; 99283

== ENCOUNTER 2017-07-20 01:51 | Emergency (ER) | payer SELFPAY ==
[~2017-07-20] VITALS: Ht 160 cm; Wt 90.7 kg
--- OUTSIDE RECORDS SUMMARY | 2017-07-20 01:57 | XMS REPORT | Clinical Summary ---
Author Author [facility] Organization [facility] Address Unknown Phone Unavailable Care Team Providers Care Box Feeder Name Role Phone Vanessa Fernández MD Unavailable Unavailable Source Comments Some departments are not documenting in the electronic medical record. 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
--- NOTE | 2017-07-20 02:54 | ED Fall/Injury ---
General Chief Complaint: Lower Extremity Stated Complaint: RT FOOT & LEG INJURY Nursing Triage Note: PT REPORTS SHE FELL THROUGH FLOOR VENT AT HER HOME AND IS C/O PAIN FROM HER R KNEE DOWN TO HER FOOT. Source: patient Exam Limitations: no limitations History of Present Illness Date Seen by Provider: Jul 20, 2017 Time Seen by Provider: 02:04 Initial Comments This 32-year-old woman presents to emergency room with right lower leg injury after stepping through a floor vent. She complains of pain and tenderness on the medial and lateral aspects of the calf. Ankle and foot appear unremarkable. Allergies and Home Medications Allergies Coded Allergies: guaifenesin (Verified Allergy, Intermediate, ANAPHYLAXIS, 03/28/12) Iodinated Contrast Media - IV Dye (Unverified Allergy, Mild, 11/11/11) amoxicillin (Verified Allergy, Mild, RASH-VOMITTING, 05/09/11) hydrocodone (Verified Allergy, Mild, RASH-VOMITTING, 05/09/11) Metronidazole HCl (Verified Allergy, Unknown, 12/23/13) codeine (Unverified Allergy, Unknown, 12/28/14) ketorolac tromethamine (Verified Allergy, Unknown, 12/23/13) levofloxacin (Unverified Allergy, Unknown, 12/23/13) metronidazole (Verified Allergy, Unknown, 12/23/13) Uncoded Allergies: Catfish (Allergy, Intermediate, 12/28/14) Shortness of air Shell fish (Allergy, Unknown, 12/28/14) Home Medications Ibuprofen 800 Mg Tablet, 800 MG PO Q8H PRN for PAIN, #21 Ref 0 Prescribed by: BRIDGET CHAUDHARY on 01/25/17 1241 Constitutional: no symptoms reported Eyes: No Symptoms Reported Ears, Nose, Mouth, Throat: no symptoms reported Respiratory: no symptoms reported Cardiovascular: no symptoms reported Gastrointestinal: no symptoms reported Genitourinary: no symptoms reported Musculoskeletal: see HPI Skin: see HPI Psychiatric/Neurological: No Symptoms Reported Past Deqojus-Rzowjz-Nnfpem Hx Patient Social History Alcohol Use: Denies Use Recreational Drug Use: No Smoking Status: Former Smoker Type Used: Cigarettes Former Smoker, Quit: May 18, 2010 2nd Hand Smoke Exposure: No Recent Foreign Travel: No Contact w/Someone Who Travel: No Recent Infectious Disease Expo: No Recent Hopitalizations: No Immunizations Up To Date Tetanus Booster (TDap): More than 5yrs Seasonal Allergies Seasonal Allergies: No Surgeries History of Surgeries: Yes ("CYST" REMOVED FROM NECK AND LEFT ARM, R KNEE) Surgeries: Gallbladder, Orthopedic, Tubal Ligation Respiratory History of Respiratory Disorde: Yes Respiratory Disorders: Asthma Cardiovascular History of Cardiac Disorders: Yes Cardiac Disorders: Hypertension Neurological History of Neurological Disord: Yes Neurological Disorders: Headaches /Migraines, Neuropathy, Vertigo 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 System Hx 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 Disorders: No Sexually Transmitted Disease: No Female 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 Disorders: Denies 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 Gastrointestinal History of Gastrointestinal Di: No Musculoskeletal History of Musculoskeletal Dis: Yes Musculoskeletal Disorders: Degenerate Disk Disease, Chronic Back Pain, Fractures Endocrine History of Endocrine Disorders: Yes ("borderline diabetic") Endocrine Disorders: Diabetes, Non-Insulin dep HEENT HEENT Disorders: Chronic Ear Infection Hearing Impairment: Hard of Hearing Cancer History of Cancer: No Psychosocial History of Psychiatric Problem: Yes (OCD) Behavioral Health Disorders: ADD/ADHD, Anxiety, PTSD, Bipolar, Depression Integumentary History of Skin or Integumenta: No Skin/Integumentary Disorders: Recent Skin Changes Blood Transfusions History of Blood Disorders: No Adverse Reaction to a Blood Tr: No Family Medical History Significant Family History: No Pertinent Family Hx, Cancer, Diabetes, Hypertension Physical Exam Vital Signs Vital Signs - First Documented 07/20/17 02:08 Temp 97.2 Pulse 74 Resp 16 B/P (MAP) 134/84 (101) Pulse Ox 98 O2 Delivery Room Air Capillary Refill : Less Than 3 Seconds General Appearance: WD/WN, no apparent distress Extremities: no pedal edema, normal capillary refill, other (tenderness on the medial and lateral aspects of the right lower leg. Very superficial abrasions without bleeding in these areas. 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 Patient was freely ambulatory at discharge. Diagnostic Imaging Diagonstic Imaging: Xray Plain Films/CT/US/NM/MRI: leg Comments Tib-fib x-rays viewed by me. Report not yet available. No acute abnormalities appreciated. Departure Impression Impression: Primary Impression: Right leg injury Qualified Codes: S89.91XA - Unspecified injury of right lower leg, initial encounter Disposition: HOME, SELF-CARE Condition: Stable Departure-Patient Inst. Decision time for Depature: 02:40 Referrals: [facility] [place] (PCP/Family) Primary Care Physician Patient Instructions: NO INSTRUCTIONS GIVEN Add. Discharge Instructions: Treat pain with ibuprofen up to 600 mg every 6 hours as needed. Add Tylenol ( acetaminophen) up to 1000 mg every 6 hours as needed for additional pain relief. You may ice in 20 minute intervals if that helps. Elevation may also be helpful. Gradually increase weightbearing and level of activity as pain allows. Return to care if symptoms worsen or you are not improving as expected. All discharge instructions reviewed with patient and/or family. Voiced understanding. CHANDANA DOW MD Jul 20, 2017 02:54
[2017-07-20 02:57] VITALS: BP 134/84
--- NOTE | 2017-07-20 07:31 | Diagnostic Imaging Report ---
INDICATION: Fall. FINDINGS: The tibia and fibula are intact. No fracture or dislocation. Alignment at the knee and ankle joints appeared within normal limits. IMPRESSION: No acute appearing abnormality. Dictated by: Dictated on workstation # [id number]
== END 2017-07-20 02:57 | disposition home or self-care (01) ==
LOC: EDUNIT# 01:51 → ER 01:53
DX: S89.91XA Unspecified injury of right lower leg, initial encounter (principal); F41.9 Anxiety disorder, unspecified; F43.10 Post-traumatic stress disorder, unspecified; F31.9 Bipolar disorder, unspecified; E11.9 Type 2 diabetes mellitus without complications; J45.909 Unspecified asthma, uncomplicated; M47.9 Spondylosis, unspecified; Z87.81 Personal history of (healed) traumatic fracture; Z98.51 Tubal ligation status; Z87.891 Personal history of nicotine dependence; Z88.1 Allergy status to other antibiotic agents; Z88.5 Allergy status to narcotic agent; Z88.8 Allergy status to other drugs, medicaments and biological substances; Z91.041 Radiographic dye allergy status; W13.3XXA Fall through floor, initial encounter; Y92.009 Unspecified place in unspecified non-institutional (private) residence as the place of occurrence of the external cause
CPT/HCPCS: 73590; 99283

== ENCOUNTER 2017-09-03 00:03 | Emergency (ER) | payer SELFPAY ==
[~2017-09-03] VITALS: Ht 160 cm; Wt 98.0 kg
--- NOTE | 2017-09-03 00:44 | ED Upper Extremity ---
General Chief Complaint: Upper Extremity Stated Complaint: POSS ARM INJ Nursing Triage Note: LEFT ELBOW PAIN/ABRASION Nursing Sepsis Screen: No Definite Risk Source: patient History of Present Illness Date Seen by Provider: Sep 03, 2017 Time Seen by Provider: 00:10 Initial Comments PT ARRIVES VIA POV FROM HOME-DROVE SELF HERE STATES SHE WAS TRYING TO SIT DOWN ON THE COUCH / HIDE A BED, AND MISSED THE COUCH/BED AND HIT HER LEFT FOREARM ON METAL FRAME OF HIDE A BED. OCCURRED AT 2330 AND RUSHED STRAIGHT HERE. NO PARESTHESIAS OR MOTOR DEFICITS NO OTHER INJURIES FROM INCIDENT NO PRIOR INJURY TO THIS ARM PT IS RIGHT HANDED HAS NOT TAKEN ANYTHING FOR PAIN Allergies and Home Medications Allergies Coded Allergies: guaifenesin (Verified Allergy, Intermediate, ANAPHYLAXIS, 03/28/12) Iodinated Contrast Media - IV Dye (Unverified Allergy, Mild, 11/11/11) amoxicillin (Verified Allergy, Mild, RASH-VOMITTING, 05/09/11) hydrocodone (Verified Allergy, Mild, RASH-VOMITTING, 05/09/11) Metronidazole HCl (Verified Allergy, Unknown, 12/23/13) codeine (Unverified Allergy, Unknown, 12/28/14) ketorolac tromethamine (Verified Allergy, Unknown, 12/23/13) levofloxacin (Unverified Allergy, Unknown, 12/23/13) metronidazole (Verified Allergy, Unknown, 12/23/13) Uncoded Allergies: Catfish (Allergy, Intermediate, 12/28/14) Shortness of air Shell fish (Allergy, Unknown, 12/28/14) Home Medications Ibuprofen 800 Mg Tablet, 800 MG PO Q8H PRN for PAIN Prescribed by: BRIDGET CHAUDHARY on 01/25/17 1241 Patient Home Medication List Home Medication List Reviewed: Yes Constitutional: no symptoms reported EENTM: no symptoms reported Respiratory: no symptoms reported Cardiovascular: no symptoms reported Gastrointestinal: no symptoms reported : No LMP: Sep 19, 2017 (NORMAL. S/P BTL) Control/STD Prophylaxis: Other (BTL) Musculoskeletal: see HPI Skin: see HPI, other (ABRASION TO FOREARM) Past Pawyeqe-Cpmzef-Qztxjf Hx Patient Social History Alcohol Use: Denies Use Recreational Drug Use: No Smoking Status: Former Smoker Type Used: Cigarettes Former Smoker, Quit: May 18, 2010 2nd Hand Smoke Exposure: No Recent Foreign Travel: No Contact w/Someone Who Travel: No Recent Infectious Disease Expo: No Recent Hopitalizations: No Immunizations Up To Date Tetanus Booster (TDap): More than 5yrs Seasonal Allergies Seasonal Allergies: No Past Medical History Surgeries: Yes ("CYST" REMOVED FROM NECK AND LEFT ARM, R KNEE) Gallbladder, Orthopedic, Tubal Ligation Respiratory: Yes Asthma Cardiac: Yes Hypertension Neurological: Yes Headaches /Migraines, Neuropathy, Vertigo : No 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 Disorders: No Female 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 Disorders: Denies 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 Sexually Transmitted Disease: No Genitourinary: No Gastrointestinal: No Musculoskeletal: Yes Degenerate Disk Disease, Chronic Back Pain, Fractures Endocrine: Yes ("borderline diabetic") Diabetes, Non-Insulin dep HEENT: Yes Chronic Ear Infection Hearing Impairment: Hard of Hearing Cancer: No Psychosocial: Yes (OCD) ADD/ADHD, Anxiety, PTSD, Bipolar, Depression Integumentary: No Recent Skin Changes Blood Disorders: No Adverse Reaction/Blood Tranf: No Family Medical History No Pertinent Family Hx, Cancer, Diabetes, Hypertension Physical Exam Vital Signs Vital Signs - First Documented 09/03/17 00:14 Temp 98.2 Pulse 81 Resp 18 B/P (MAP) 123/75 (91) Pulse Ox 99 O2 Delivery Room Air Capillary Refill : Less Than 3 Seconds General Appearance: WD/WN, no apparent distress, other (SMILING, FREELY MOVING/ USING LEFT ARM) Neck: normal inspection Cardiovascular: normal peripheral pulses, regular rate, rhythm Respiratory: normal breath sounds Gastrointestinal: non tender, soft Back: normal inspection Shoulder: normal inspection Elbow/Forearm: normal ROM, Left, abrasions (MINOR), bone tenderness, ecchymosis (SLIGHT), pain, soft tissue tenderness, swelling (SLIGHT) Wrist: Yes normal inspection Hand: normal inspection Progress/Results/Core Measures My Orders Orders - LYNETTE BOBBY DO Forearm, Left, 2 Views (09/03/17 00:15) Dipht,Pertuss(Acell),Tet Adult (Boostrix (09/03/17 00:45) Dipht,Pertuss(Acell),Tet Adult (Boostrix (09/03/17 01:04) Medications Given in ED Current Medications Medications Dose Ordered Sig/Felisha Route Start Time Stop Time Status Last Admin Dose Admin Diphtheria/ Tetanus/Acell Pertussis 0.5 ml ONCE ONCE IM 09/03/17 00:45 09/03/17 01:10 DC 09/03/17 01:10 0.5 ML Vital Signs/I&O 09/03/17 09/03/17 00:14 01:10 Temp 98.2 98.2 Pulse 81 81 Resp 18 18 B/P (MAP) 123/75 (91) 123/75 (91) Pulse Ox 99 99 O2 Delivery Room Air Blood Pressure Mean: 91 Comments XRAYS LEFT FOREARM--NO ACUTE PROCESS, PENDING RADIOLOGIST REVIEW Reviewed: Reviewed by Me Departure Impression Primary Impression: LEFT FOREARM CONTUSION AND ABRASION Additional Impression: Nzbhsyuuxz-iuirytbau-kmuackn (DPT) vaccination administered at current visit Disposition: HOME, SELF-CARE Condition: Stable Departure-Patient Inst. Referrals: [facility] (PCP/Family) Primary Care Physician Patient Instructions: Contusion (DC), Diphtheria and Tetanus Toxoids, and Acellular Pertussis Vaccine, Skin Abrasions (DC) Add. Discharge Instructions: TYLENOL AND MOTRIN NEEDED FOR PAIN ICE TO AREA AT 20 MINUTE INTERVALS ELEVATE ARM MUCH POSSIBLE FOLLOW UP WITH YOUR DR IN 1 WEEK IF NO IMPROVEMENT All discharge instructions reviewed with patient and/or family. Voiced understanding. Images Extremities-Upper 1 - Mild, Abrasion, Contusion, Ecchymosis, Swelling, Tenderness LYNETTE BOBBY DO Sep 03, 2017 00:44
[2017-09-03] MEDS ORDERED: TETANUS,DIPTH,PERTUSS P/F (BOOSTRIX) 0.5 ML VIAL IM ONE ×2 (00:45→01:04)
[2017-09-03 01:10] VITALS: BP 123/75
--- NOTE | 2017-09-03 05:32 | Diagnostic Imaging Report ---
INDICATION: Left elbow abrasion. Injury. COMPARISON: None. FINDINGS: 2 views of the left forearm show no fractures, dislocations, or other acute bony abnormalities identified. Joint spaces are well maintained throughout. The soft tissues appear unremarkable. No radiopaque foreign bodies are identified. IMPRESSION: No acute fractures or dislocations of the left forearm. Dictated by: Dictated on workstation # [id number]
== END 2017-09-03 01:10 | disposition home or self-care (01) ==
LOC: EDUNIT# 00:03 → ER 00:05
DX: S50.12XA Contusion of left forearm, initial encounter (principal); J45.909 Unspecified asthma, uncomplicated; I10 Essential (primary) hypertension; E11.40 Type 2 diabetes mellitus with diabetic neuropathy, unspecified; G43.909 Migraine, unspecified, not intractable, without status migrainosus; F41.9 Anxiety disorder, unspecified; F43.10 Post-traumatic stress disorder, unspecified; F31.9 Bipolar disorder, unspecified; F42.9 Obsessive-compulsive disorder, unspecified; F90.9 Attention-deficit hyperactivity disorder, unspecified type; Z23 Encounter for immunization; Z87.81 Personal history of (healed) traumatic fracture; Z87.891 Personal history of nicotine dependence; Z98.51 Tubal ligation status; Z87.2 Personal history of diseases of the skin and subcutaneous tissue; Z88.1 Allergy status to other antibiotic agents; Z91.041 Radiographic dye allergy status; Z88.5 Allergy status to narcotic agent; Z88.6 Allergy status to analgesic agent; W22.09XA Striking against other stationary object, initial encounter
CPT/HCPCS: 73090; 90471; 90715

== ENCOUNTER 2017-11-22 19:30 | Emergency (ER) | payer OTHER ==
[~2017-11-22] VITALS: Ht 160 cm; Wt 90.7 kg
[~2017-11-22 19:30] MED LIST changes: -EPIN0.3A3 IJ; +EPIN0.3P18 IJ; -METF500T4 PO; +METF500T5 PO
--- NOTE | 2017-11-22 20:34 | ED Lower Extremity ---
General Chief Complaint: Lower Extremity Stated Complaint: R FOOT INJ Nursing Triage Note: pt ambulatory to room, states she was working at [employer], moving a pt chair with a clement and right foot got stuck under the clement, is work comp. Nursing Sepsis Screen: No Definite Risk Source: patient Exam Limitations: no limitations History of Present Illness Date Seen by Provider: Nov 22, 2017 Time Seen by Provider: 20:30 Initial Comments Patient is a 32-year-old female who presents to the emergency room with complaints of right foot pain. She reports that she was moving a patient's chair with a clement at the correction when she ran over her foot. Patient is able to ambulate without difficulty. She states that her pain is tolerable at this time and denies pain medication. Onset: just prior to arrival Modifying Factors: Improves With Movement Allergies and Home Medications Allergies Coded Allergies: guaifenesin (Verified Allergy, Intermediate, ANAPHYLAXIS, 03/28/12) Iodinated Contrast Media - IV Dye (Unverified Allergy, Mild, 11/11/11) amoxicillin (Verified Allergy, Mild, RASH-VOMITTING, 05/09/11) hydrocodone (Verified Allergy, Mild, RASH-VOMITTING, 05/09/11) Metronidazole HCl (Verified Allergy, Unknown, 12/23/13) codeine (Unverified Allergy, Unknown, 12/28/14) ketorolac tromethamine (Verified Allergy, Unknown, 12/23/13) levofloxacin (Unverified Allergy, Unknown, 12/23/13) metronidazole (Verified Allergy, Unknown, 12/23/13) Uncoded Allergies: Catfish (Allergy, Intermediate, 12/28/14) Shortness of air Shell fish (Allergy, Unknown, 12/28/14) Home Medications Ibuprofen 800 Mg Tablet, 800 MG PO Q8H PRN for PAIN Prescribed by: BRIDGET CHAUDHARY on 01/25/17 1241 Patient Home Medication List Home Medication List Reviewed: Yes Constitutional: see HPI; No chills, No diaphoresis EENTM: no symptoms reported Respiratory: see HPI; No cough, No short of breath, No wheezing Cardiovascular: see HPI; No chest pain, No edema Gastrointestinal: see HPI; No abdominal pain, No heartburn Genitourinary: see HPI; No decreased output, No discharge Musculoskeletal: see HPI; No back pain, No joint pain, No joint swelling, No muscle twitching; other (right foot pain) Skin: see HPI; No change in color, No change in hair/nails Psychiatric/Neurological: See HPI; Denies Anxiety, Denies Depressed All Other Systems Reviewed Negative Unless Noted: Yes Past Ygpotsi-Hjnrcu-Hfljyq Hx Patient Social History Alcohol Use: Denies Use Recreational Drug Use: No Smoking Status: Former Smoker Type Used: Cigarettes Former Smoker, Quit: May 18, 2010 2nd Hand Smoke Exposure: No Recent Foreign Travel: No Contact w/Someone Who Travel: No Recent Infectious Disease Expo: No Recent Hopitalizations: No Physical Abuse: No Sexual Abuse: No Immunizations Up To Date Tetanus Booster (TDap): More than 5yrs Seasonal Allergies Seasonal Allergies: No Past Medical History Surgeries: Yes ("CYST" REMOVED FROM NECK AND LEFT ARM, R KNEE) Gallbladder, Orthopedic, Tubal Ligation Respiratory: Yes Asthma Cardiac: Yes Hypertension Neurological: Yes Headaches /Migraines, Neuropathy, Vertigo 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 Disorders: No Female 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 Disorders: Denies 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 Sexually Transmitted Disease: No Genitourinary: No Gastrointestinal: No Musculoskeletal: Yes Degenerate Disk Disease, Chronic Back Pain, Fractures Endocrine: Yes ("borderline diabetic") Diabetes, Non-Insulin dep HEENT: Yes Chronic Ear Infection Hearing Impairment: Hard of Hearing Cancer: No Psychosocial: Yes (OCD) ADD/ADHD, Anxiety, PTSD, Bipolar, Depression Nursing Suicide Risk Score: 0 Integumentary: No Recent Skin Changes Blood Disorders: No Adverse Reaction/Blood Tranf: No Family Medical History No Pertinent Family Hx, Cancer, Diabetes, Hypertension Physical Exam Vital Signs Vital Signs - First Documented 11/22/17 19:41 Temp 97.5 Pulse 85 Resp 18 B/P (MAP) 132/80 (97) Pulse Ox 96 Capillary Refill : Less Than 3 Seconds General Appearance: WD/WN, no apparent distress HEENT: PERRL/EOMI, normal ENT inspection, TMs normal, pharynx normal Neck: non-tender, full range of motion, supple, normal inspection Cardiovascular: normal peripheral pulses, regular rate, rhythm, no edema, no gallop, no JVD, no murmur Respiratory: chest non-tender, lungs clear, normal breath sounds, no respiratory distress, no accessory muscle use Gastrointestinal: normal bowel sounds, non tender, soft, no organomegaly, no pulsatile mass Back: normal inspection, no CVA tenderness, no vertebral tenderness Hips: bilateral hip non-tender, bilateral hip normal inspection, bilateral hip normal range of motion, bilateral hip bone tenderness Legs: bilateral leg non-tender, bilateral leg normal inspection, bilateral leg normal range of motion, bilateral leg no evidence of injury Knees: bilateral knee non-tender, bilateral knee normal inspection, bilateral knee normal range of motion, bilateral knee no evidence of injury Ankles: bilateral ankle non-tender, bilateral ankle normal inspection, bilateral ankle normal range of motion, bilateral ankle no evidence of injury Feet: left foot non-tender, left foot normal inspection, left foot normal range of motion, left foot no evidence of injury; right foot pain, right foot soft tissue tenderness Neurologic/Tendon: normal sensation, normal motor functions, normal tendon functions, responds to pain Neurologic/Psychiatric: alert, normal mood/affect, oriented x 3 Skin: normal color, warm/dry Lymphatic: no adenopathy Progress/Results/Core Measures Results/Orders My Orders Orders - AMANDA KELLEY Foot, Right, 3 View (11/22/17 20:29) Vital Signs/I&O 11/22/17 11/22/17 19:41 21:26 Temp 97.5 97.5 Pulse 85 85 Resp 18 18 B/P (MAP) 132/80 (97) 132/80 (97) Pulse Ox 96 96 Blood Pressure Mean: 97 Diagnostic Imaging Diagonstic Imaging: Xray Comments NAME: MARCIO CEDEÑO [facility] REC#: [id number] PT STATUS: DEP ER : 1985 PHYSICIAN: AMANDA KELLEY ADMIT DATE: 11/22/17/ER Signed Date of Exam: 11/22/17 FOOT, RIGHT, 3 VIEW EXAMINATION: Right foot series INDICATION: Foot pain. FINDINGS: Alignment of the foot appears normal. There is no dislocation. There is no cortical disruption to suggest an acute fracture. There is no focal soft tissue abnormality. IMPRESSION: Negative radiographs of the right foot. Dictated by: Dictated on workstation # [id number] Dict: 11/22/172125 Trans: 11/22/172131 Interpreted by: KATHY PERSON MD Electronically signed by: KATHY PERSON MD 11/22/172131 Reviewed: Reviewed by Me Departure Impression Primary Impression: Contusion of ankle Qualified Codes: S90.01XA - Contusion of right ankle, initial encounter Disposition: HOME, SELF-CARE Condition: Stable/Unchanged Departure-Patient Inst. Decision time for Depature: 20:46 Referrals: [facility] (PCP/Family) Primary Care Physician Patient Instructions: Contusion (DC) Add. Discharge Instructions: You may use ice, ibuprofen, and Tylenol as needed for pain. You may use the Nelson bandage that was provided for additional support. Return back to the emergency room for any concerns as needed. Follow-up with your doctor within 1 week call tomorrow morning for appointment time. All discharge instructions reviewed with patient and/or family. Voiced understanding. Work/School Note: Work Release Form Date Seen in the Emergency Department: Nov 22, 2017 Return to Work: Nov 23, 2017 Restrictions: No Restrictions AMANDA KELLEY Nov 22, 2017 20:34
[2017-11-22 21:26] VITALS: BP 132/80
--- NOTE | 2017-11-22 21:31 | Diagnostic Imaging Report ---
EXAMINATION: Right foot series INDICATION: Foot pain. FINDINGS: Alignment of the foot appears normal. There is no dislocation. There is no cortical disruption to suggest an acute fracture. There is no focal soft tissue abnormality. IMPRESSION: Negative radiographs of the right foot. Dictated by: Dictated on workstation # [id number]
== END 2017-11-22 21:25 | disposition home or self-care (01) ==
LOC: EDUNIT# 19:30 → ER 19:31
DX: S90.01XA Contusion of right ankle, initial encounter (principal); J45.909 Unspecified asthma, uncomplicated; I10 Essential (primary) hypertension; G43.909 Migraine, unspecified, not intractable, without status migrainosus; E11.9 Type 2 diabetes mellitus without complications; F90.9 Attention-deficit hyperactivity disorder, unspecified type; F31.9 Bipolar disorder, unspecified; F41.9 Anxiety disorder, unspecified; Z87.81 Personal history of (healed) traumatic fracture; Z98.51 Tubal ligation status; Z98.890 Other specified postprocedural states; Z87.2 Personal history of diseases of the skin and subcutaneous tissue; Z87.891 Personal history of nicotine dependence; Z88.1 Allergy status to other antibiotic agents; Z88.2 Allergy status to sulfonamides; Z88.5 Allergy status to narcotic agent; Z88.6 Allergy status to analgesic agent; Z88.8 Allergy status to other drugs, medicaments and biological substances; W23.0XXA Caught, crushed, jammed, or pinched between moving objects, initial encounter
CPT/HCPCS: 73630

== ENCOUNTER 2018-05-19 13:09 | Emergency (ER) | payer OTHER ==
[~2018-05-19] VITALS: Ht 160 cm; Wt 101.6 kg
[~2018-05-19 13:09] MED LIST changes: -BENZ-13 PO; +BENZ100C18 PO; +METF-397 PO; -METF500T5 PO
--- NOTE | 2018-05-19 13:22 | ED Back Pain ---
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 She reports that she has low back muscle pain that radiates to her left thigh. Denies loss of bowel or bladder. Reports taking ibuprofen and Tylenol prior to arrival without relief. Timing/Duration: 12 Hours Radiation: Upper Legs Associated Symptoms: muscle spasms; No loss of bladder control, No loss of bowel control Allergies and Home Medications Allergies Coded Allergies: guaifenesin (Verified Allergy, Intermediate, ANAPHYLAXIS, 03/28/12) Iodinated Contrast- Oral and IV Dye (Unverified Allergy, Mild, 11/11/11) amoxicillin (Verified Allergy, Mild, RASH-VOMITTING, 05/09/11) hydrocodone (Verified Allergy, Mild, RASH-VOMITTING, 05/09/11) Metronidazole HCl (Verified Allergy, Unknown, 12/23/13) codeine (Unverified Allergy, Unknown, 12/28/14) ketorolac (Unverified Allergy, Unknown, 05/19/18) ketorolac tromethamine (Verified Allergy, Unknown, 12/23/13) levofloxacin (Unverified Allergy, Unknown, 12/23/13) metronidazole (Verified Allergy, Unknown, 12/23/13) Uncoded Allergies: Catfish (Allergy, Intermediate, 12/28/14) Shortness of air Shell fish (Allergy, Unknown, 12/28/14) Home Medications Cyclobenzaprine HCl 10 Mg Tablet, 10 MG PO Q8H Prescribed by: AMANDA KELLEY on 05/19/18 1347 Ibuprofen 800 Mg Tablet, 800 MG PO Q8H PRN for PAIN Prescribed by: BRIDGET CHAUDHARY on 01/25/17 1241 Prednisone 10 Mg Tab.ds.pk, 10 MG PO UD Prescribed by: AMANDA KELLEY on 05/19/18 1347 Patient Home Medication List Home Medication List Reviewed: Yes Review of Systems Constitutional: no symptoms reported, see HPI Musculoskeletal: see HPI, back pain All Other Systems Reviewed Negative Unless Noted: Yes Past Pehvcot-Vcgbis-Tjulzg Hx Past Med/Social Hx: Reviewed Nursing Past Med/Soc Hx Patient Social History Alcohol Use: Denies Use Recreational Drug Use: No Smoking Status: Former Smoker Type Used: Cigarettes Former Smoker, Quit: May 18, 2010 2nd Hand Smoke Exposure: No Recent Foreign Travel: No Contact w/Someone Who Travel: No Recent Hopitalizations: No Physical Abuse: No Sexual Abuse: No Mistreated: No Fear: No Immunizations Up To Date Tetanus Booster (TDap): More than 5yrs Seasonal Allergies Seasonal Allergies: No Past Medical History Surgeries: Yes ("CYST" REMOVED FROM NECK AND LEFT ARM, R KNEE) Gallbladder, Orthopedic, Tubal Ligation Respiratory: Yes Asthma Cardiac: Yes Hypertension Neurological: Yes Headaches /Migraines, Neuropathy, Vertigo 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 Disorders: No Female 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 Disorders: 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 Sexually Transmitted Disease: No Genitourinary: No Gastrointestinal: No Musculoskeletal: Yes Degenerate Disk Disease, Chronic Back Pain, Fractures Endocrine: Yes ("borderline diabetic") Diabetes, Non-Insulin dep HEENT: Yes Chronic Ear Infection Hearing Impairment: Hard of Hearing Cancer: No Psychosocial: Yes (OCD) ADD/ADHD, Anxiety, PTSD, Bipolar, Depression Integumentary: No Recent Skin Changes Blood Disorders: No Adverse Reaction/Blood Tranf: No Family Medical History Reviewed Nursing Family Hx No Pertinent Family Hx, Cancer, Diabetes, Hypertension Physical Exam Vital Signs Vital Signs - First Documented 05/19/18 13:13 Temp 98.4 Pulse 85 Resp 15 B/P (MAP) 131/83 (99) Pulse Ox 98 O2 Delivery Room Air Capillary Refill : Height, Weight, BMI Height: 5'3.00" Weight: 200lbs. oz. 90.047896ii; 44.28 BMI Method:Stated General Appearance: No Apparent Distress, WD/WN Neck: Full Range of Motion, Normal Inspection, Non Tender, Supple Cardiovascular: Regular Rate, Rhythm, No Edema, No Gallop, No JVD, No Murmur, Normal Peripheral Pulses Back: Normal Inspection, No CVA Tenderness, Vertebral Tenderness (lumbar) Extremity: Normal Capillary Refill Neurologic/Psychiatric: Alert, Oriented x3, Normal Mood/Affect Skin: Normal Color, Warm/Dry Progress/Results/Core Measures Results/Orders My Orders Orders - BERNOT,AMANDA Orphenadrine Injection (Norflex Injectio (05/19/18 13:30) Medications Given in ED Current Medications Medications Dose Ordered Sig/Felisha Route Start Time Stop Time Status Last Admin Dose Admin Orphenadrine Citrate 60 mg ONCE ONCE IM 05/19/18 13:30 05/19/18 13:31 DC 05/19/18 13:29 60 MG Vital Signs/I&O 05/19/18 13:13 Temp 98.4 Pulse 85 Resp 15 B/P (MAP) 131/83 (99) Pulse Ox 98 O2 Delivery Room Air Progress Progress Note : Time: 13:50 Progress Note Patient has relief of pain at this time. She agrees with plan of care, plans for discharge, return precautions were given. She will be placed on a prednisone Dosepak and a muscle relaxer as needed. Voices no questions or concerns. Departure Impression Primary Impression: Back strain Qualified Codes: S39.012A - Strain of muscle, fascia and tendon of lower back , initial encounter Disposition: HOME, SELF-CARE Condition: Stable/Unchanged Departure-Patient Inst. Decision time for Depature: 13:45 Referrals: [facility] (PCP/Family) Primary Care Physician Patient Instructions: Lumbar Muscle Strain (DC) Add. Discharge Instructions: Take medications as directed. Alternating ice and heat may be beneficial to alleviate some back pain. Tylenol and ibuprofen as directed by the bottle for pain relief. Follow up through primary care provider within 1 week for recheck. Return back to the emergency room for any worsening symptoms or concerns as needed. All discharge instructions reviewed with patient and/or family. Voiced understanding. Scripts Prednisone (Prednisone) 10 Mg Tab.ds.pk 10 MG PO UD, #1 PKG Prov: AMANDA KELLEY 05/19/18 Cyclobenzaprine HCl (Cyclobenzaprine HCl) 10 Mg Tablet 10 MG PO Q8H, #14 TAB Prov: AMANDA KELLEY 05/19/18 AMANDA KELLEY May 19, 2018 13:22
[2018-05-19] MEDS ORDERED: ORPHENADRINE 60 MG/2 ML (NORFLEX) AMP IM ONE (13:30)
[2018-05-19] MEDS ORDERED: PRED10TA22 PO (13:47)
[2018-05-19] MEDS ORDERED: CYCL10TA9 PO (13:47)
[2018-05-19 13:52] VITALS: BP 131/83
== END 2018-05-19 14:00 | disposition home or self-care (01) ==
LOC: EDUNIT# 13:09 → ER 13:10
DX: S39.012A Strain of muscle, fascia and tendon of lower back, initial encounter (principal); J45.909 Unspecified asthma, uncomplicated; I10 Essential (primary) hypertension; G43.909 Migraine, unspecified, not intractable, without status migrainosus; E11.40 Type 2 diabetes mellitus with diabetic neuropathy, unspecified; F43.10 Post-traumatic stress disorder, unspecified; F41.9 Anxiety disorder, unspecified; F90.9 Attention-deficit hyperactivity disorder, unspecified type; F98.8 Other specified behavioral and emotional disorders with onset usually occurring in childhood and adolescence; F31.9 Bipolar disorder, unspecified; F42.9 Obsessive-compulsive disorder, unspecified; Z88.0 Allergy status to penicillin; Z91.041 Radiographic dye allergy status; Z88.5 Allergy status to narcotic agent; Z88.4 Allergy status to anesthetic agent; Z88.8 Allergy status to other drugs, medicaments and biological substances; Z79.52 Long term (current) use of systemic steroids; Z98.51 Tubal ligation status; X50.0XXA Overexertion from strenuous movement or load, initial encounter; Y92.59 Other trade areas as the place of occurrence of the external cause; Y99.0 Civilian activity done for income or pay
CPT/HCPCS: 99284

== ENCOUNTER 2018-07-13 05:58 | Emergency (ER) | payer SELFPAY ==
[~2018-07-13] VITALS: Ht 160 cm; Wt 108.9 kg
[~2018-07-13 05:58] MED LIST changes: +PRED10TA22 PO
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
[2018-07-13 07:00] VITALS: BP 137/105
--- NOTE | 2018-07-13 07:14 | Diagnostic Imaging Report ---
INDICATION: Pain status post injury COMPARISON: None. FINDINGS: 3 views of the right hand show no fractures, dislocations, or other acute bony abnormalities identified. Joint spaces are well maintained throughout. The soft tissues appear unremarkable. No radiopaque foreign bodies are identified. IMPRESSION: No acute fractures or dislocations of the right hand. Dictated by: Dictated on workstation # [id number]
--- NOTE | 2018-07-13 07:25 | Diagnostic Imaging Report ---
INDICATION: Pain. Injury. COMPARISON: None. FINDINGS: 3 views of the right wrist demonstrate no acute fracture or dislocation. There are no focal osseous lesions. No avascular necrosis is seen. The visualized soft tissue structures are unremarkable. The pronator fat pad is not displaced. There are no radio opaque foreign bodies. IMPRESSION: 1. No acute fracture or dislocation in the right wrist. Dictated by: Dictated on workstation # [id number]
== END 2018-07-13 07:02 | disposition home or self-care (01) ==
LOC: EDUNIT# 05:58 → ER 06:01
DX: S66.911A Strain of unspecified muscle, fascia and tendon at wrist and hand level, right hand, initial encounter (principal); J45.909 Unspecified asthma, uncomplicated; I10 Essential (primary) hypertension; G43.909 Migraine, unspecified, not intractable, without status migrainosus; E11.40 Type 2 diabetes mellitus with diabetic neuropathy, unspecified; F41.9 Anxiety disorder, unspecified; F98.8 Other specified behavioral and emotional disorders with onset usually occurring in childhood and adolescence; F90.9 Attention-deficit hyperactivity disorder, unspecified type; F31.9 Bipolar disorder, unspecified; F43.10 Post-traumatic stress disorder, unspecified; F42.9 Obsessive-compulsive disorder, unspecified; Z91.041 Radiographic dye allergy status; Z88.0 Allergy status to penicillin; Z88.5 Allergy status to narcotic agent; Z88.8 Allergy status to other drugs, medicaments and biological substances; Z88.4 Allergy status to anesthetic agent; Z88.1 Allergy status to other antibiotic agents; Z87.891 Personal history of nicotine dependence; Z98.890 Other specified postprocedural states; Z98.51 Tubal ligation status; V48.5XXA Car driver injured in noncollision transport accident in traffic accident, initial encounter
CPT/HCPCS: 73110; 73130

== ENCOUNTER 2018-08-20 22:56 | Emergency (ER) | payer OTHER ==
[~2018-08-20] VITALS: Ht 160 cm; Wt 108.9 kg
[2018-08-21] MEDS ORDERED: SERT25TA5 PO (00:18)
[2018-08-21] MEDS ORDERED: MECL-124 PO (00:18)
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
[2018-08-21 02:09] VITALS: BP 118/76
--- NOTE | 2018-08-21 07:13 | Diagnostic Imaging Report ---
PATIENT HISTORY: Left shoulder pain. TECHNIQUE: 3 views of the left shoulder COMPARISON: 12/27/2008 FINDINGS: No acute fracture or dislocation is seen in the left shoulder. Alignment appears normal. Joint spaces are preserved. IMPRESSION: No acute osseous abnormalities seen in the left shoulder. Dictated by: Dictated on workstation # [id number]
== END 2018-08-21 02:09 | disposition home or self-care (01) ==
LOC: EDUNIT# 22:56 → ER 23:00
DX: S49.92XA Unspecified injury of left shoulder and upper arm, initial encounter (principal); J45.909 Unspecified asthma, uncomplicated; I10 Essential (primary) hypertension; G43.909 Migraine, unspecified, not intractable, without status migrainosus; E11.40 Type 2 diabetes mellitus with diabetic neuropathy, unspecified; F41.9 Anxiety disorder, unspecified; F43.10 Post-traumatic stress disorder, unspecified; F90.9 Attention-deficit hyperactivity disorder, unspecified type; F42.9 Obsessive-compulsive disorder, unspecified; Z91.041 Radiographic dye allergy status; Z88.1 Allergy status to other antibiotic agents; Z88.5 Allergy status to narcotic agent; Z88.6 Allergy status to analgesic agent; Z88.2 Allergy status to sulfonamides; Z91.013 Allergy to seafood; Z87.891 Personal history of nicotine dependence; Z98.51 Tubal ligation status; X50.0XXA Overexertion from strenuous movement or load, initial encounter; Y92.59 Other trade areas as the place of occurrence of the external cause; Y99.0 Civilian activity done for income or pay; Y92.129 Unspecified place in nursing home as the place of occurrence of the external cause
CPT/HCPCS: 73030

== ENCOUNTER 2018-12-17 07:11 | Emergency (ER) | payer SELFPAY ==
[~2018-12-17] VITALS: Ht 160 cm; Wt 108.9 kg
[~2018-12-17 07:11] MED LIST changes: +MECL-124 PO; +SERT25TA5 PO
[2018-12-17] MEDS ORDERED: BUPIVACAINE 0.5% 30 ML (SENSORCAINE) VIAL ONE (07:25)
[2018-12-17] MEDS ORDERED: BUPIVACAINE 0.5% 30 ML (SENSORCAINE) VIAL INJ ONE (07:30)
[2018-12-17] MEDS ORDERED: TETANUS,DIPTH,PERTUSS P/F (BOOSTRIX) 0.5 ML VIAL IM ONE (07:30)
[2018-12-17] MEDS ORDERED: fentaNYL INJECTION 100 MCG/2 ML AMP IVP STA (07:43)
[2018-12-17] MEDS ORDERED: RABIES VACCINE HUMAN DIPL CELL 1 ML/2.5 UNITS SYR IM ONE (07:45)
[2018-12-17] MEDS ORDERED: RABIES IMMUNE GLOBULIN 300 UNIT/ML 5 ML (HyperRAB) IM ONE (07:45)
[2018-12-17] MEDS ORDERED: cefTRIAXone FOR IV USE 1,000 MG in WATER (STERILE) FOR INJECTION 10 ML IV ONE (07:45)
--- NOTE | 2018-12-17 08:02 | ED Integumentary General ---
General Chief Complaint: Bite-Animal/Human/Insect Stated Complaint: DOG BITE Nursing Triage Note: PT IN WC TO ROOM 6. PT ABLE TO GET SELF UP TO BED. PT WAS BACKING OUT OF DRIVEWAY AND RAN OVER HER OWN DOG. WHEN PT GOT OUT OF CAR TO SEE WHAT SHE HAD RAN OVER HER DOG BIT HER HAND. PT PULLED HAND OUT OF DOG'S MOUTH AND THEN DOG BIT RIGHT CALF. Source: patient Exam Limitations: no limitations History of Present Illness Date Seen by Provider: Dec 17, 2018 Time Seen by Provider: 07:22 Initial Comments Here by POV with report of dog bite to her right lower leg distal to the knee and right hand and forearm involving the index finger and forearm area. Patient was bit by her own dog after she accidentally backed over the dog with her car. She got out to check on the dog and the dog bit her in a pain reaction. Her tetanus is not up-to-date. The dog has never had rabies vaccination in the last 10 years and the dog did kill coyotes, raccoons and possums. The dog was put down by family member due to severity of injuries. Timing/Duration: just prior to arrival (approximately 30-45 minutes ago) Severity: moderate Location: hands, extremities Possible Cause: other (dog bite) Associated Symptoms: change in skin texture, edema, other (ecchymosis) Allergies and Home Medications Allergies Coded Allergies: guaifenesin (Verified Allergy, Intermediate, ANAPHYLAXIS, 03/28/12) Iodinated Contrast- Oral and IV Dye (Unverified Allergy, Mild, 11/11/11) amoxicillin (Verified Allergy, Mild, RASH-VOMITTING, 05/09/11) hydrocodone (Verified Allergy, Mild, RASH-VOMITTING, 05/09/11) Metronidazole HCl (Verified Allergy, Unknown, 12/23/13) codeine (Unverified Allergy, Unknown, 12/28/14) ketorolac (Unverified Allergy, Unknown, 05/19/18) ketorolac tromethamine (Verified Allergy, Unknown, 12/23/13) levofloxacin (Unverified Allergy, Unknown, 12/23/13) metronidazole (Verified Allergy, Unknown, 12/23/13) Uncoded Allergies: Catfish (Allergy, Intermediate, 12/28/14) Shortness of air Shell fish (Allergy, Unknown, 12/28/14) Patient Home Medication List Home Medication List Reviewed: Yes Review of Systems Review of Systems Constitutional: no symptoms reported Respiratory: no symptoms reported Cardiovascular: no symptoms reported Musculoskeletal: see HPI, joint pain, muscle pain Skin: change in color, lesions Past Ttwysrb-Dbppzd-Rqcglk Hx Past Med/Social Hx: Reviewed Nursing Past Med/Soc Hx Patient Social History Alcohol Use: Denies Use Recreational Drug Use: No Smoking Status: Former Smoker Type Used: Cigarettes Former Smoker, Quit: May 18, 2010 2nd Hand Smoke Exposure: No Recent Foreign Travel: No Contact w/Someone Who Travel: No Recent Infectious Disease Expo: No Recent Hopitalizations: No Physical Abuse: No Sexual Abuse: No Mistreated: No Fear: No Immunizations Up To Date Tetanus Booster (TDap): More than 5yrs Seasonal Allergies Seasonal Allergies: No Past Medical History Surgeries: Yes ("CYST" REMOVED FROM NECK AND LEFT ARM, R KNEE) Gallbladder, Orthopedic, Tubal Ligation Respiratory: Yes Asthma Cardiac: Yes Hypertension Neurological: Yes Headaches /Migraines, Neuropathy, Vertigo 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 Disorders: No Female 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 Disorders: Denies [employer]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 Sexually Transmitted Disease: No Genitourinary: No Gastrointestinal: No Musculoskeletal: Yes Fractures Endocrine: Yes ("borderline diabetic") Diabetes, Non-Insulin dep HEENT: Yes Chronic Ear Infection Hearing Impairment: Hard of Hearing Cancer: No Psychosocial: Yes (OCD) ADD/ADHD, Anxiety, PTSD, Bipolar, Depression Integumentary: No Recent Skin Changes Blood Disorders: No Adverse Reaction/Blood Tranf: No Family Medical History Reviewed Nursing Family Hx No Pertinent Family Hx, Cancer, Diabetes, Hypertension Physical Exam Vital Signs Vital Signs - First Documented 12/17/18 07:18 Temp 97.8 Pulse 94 Resp 18 B/P (MAP) 133/93 (106) Pulse Ox 98 O2 Delivery Room Air Capillary Refill : Less Than 3 Seconds General Appearance: WD/WN, no apparent distress Cardiovascular: regular rate, rhythm, no murmur Respiratory: lungs clear, normal breath sounds Extremities: other (pain and swelling as well as nail injury noted to index finger on the right secondary to dog bite. Able to walk but has some pain to the right leg were dog bite occurred distal to the knee on the lateral aspect) Neurologic/Psychiatric: alert, oriented x 3 Skin: warm/dry, ecchymosis (to the right forearm, right hand and right lower extremity lateral aspect distal to the knee secondary to dog bite) Skin Problem Location: upper extremities, lower extremities Skin Problem Character: other (puncture wound noted to the lateral aspect right distal forearm and right index finger. Index finger has laceration involving nail with nail to pulled up and out of nail bed. Laceration/puncture to the right calf lateral aspect 2 with each wound approximately 1.5 cm secondary to dog bite.) Procedures/Interventions Wound Location: Lower Extremities, Upper Extremities Other Wound Location Right index finger involving the nail bed and lateral aspect approximately 2 cm. Wounds to anterior right calf 1.5 cm and lateral right calf 1.5 cm Wound's Depth, Shape: irregular, nail-avulsed, contused tissue Wound Explored: contaminated Irrigated w/ Saline (ccs): 500 Betadine Prep?: No (ChloraPrep due to iodine allergy) Anesthesia: 0.5% Sensorcaine Wound Debrided: minimal Suture: Ethlion Suture Size: 4-0 Number of Sutures: 6 Layer Closure?: 1 Number Deep Layer Sutures: 0 Sterile Dressing Applied?: Yes Progress Wound to anterior right calf closed with one simple interrupted suture. Let her have close with one simple interrupted suture. Right index finger tip injury and nail avulsion repaired after nail was reset and nail bed using 2 sutures through the nail to hold nail in place at nail bed as well as 2 more sutures to the lateral aspect of the finger (pinky side) with excellent approximation. Tolerated procedure well with no complications. Finger covered with Xeroform gauze and dressing and splint placed. Other wounds covered with antibiotic ointment and dressing. Progress/Results/Core Measures Results/Orders My Orders Orders - MOSES KATZ MD Bupivacaine 0.5% Injection (Sensorcaine (12/17/18 07:30) Hand, Right, 3 Views (12/17/18 07:26) Dipht,Pertuss(Acell),Tet Adult (Boostrix (12/17/18 07:30) Bupivacaine 0.5% Injection (Sensorcaine (12/17/18 07:25) Rabies Immune Globulin/Pf Inj (Hyperrab (12/17/18 07:45) Rabies Vaccine Human Dipl Cell (Rabavert (12/17/18 07:45) Ed Iv/Invasive Line Start (12/17/18 07:43) Ceftriaxone For Iv Use (Rocephin For I (12/17/18 07:45) Fentanyl Injection (Sublimaze Injection (12/17/18 07:43) Medications Given in ED Current Medications Medications Dose Ordered Sig/Felisha Route Start Time Stop Time Status Last Admin Dose Admin Bupivacaine HCl 30 ml ONCE ONCE INJ 12/17/18 07:30 12/17/18 07:31 DC 12/17/18 08:21 30 ML Ceftriaxone Sodium 1000 mg/ Sterile Water 10 ml @ 200 mls/hr ONCE ONCE IV 12/17/18 07:45 12/17/18 07:47 DC 12/17/18 08:03 200 MLS/HR Diphtheria/ Tetanus/Acell Pertussis 0.5 ml ONCE ONCE IM 12/17/18 07:30 12/17/18 07:31 DC 12/17/18 08:09 0.5 ML Rabies Immune Globulin 2,200 unit ONCE ONCE IM 12/17/18 07:45 12/17/18 07:46 DC 12/17/18 08:28 2,200 UNIT Rabies Vaccine Human Diploid Cell 1 ml ONCE ONCE IM 12/17/18 07:45 12/17/18 07:46 DC 12/17/18 08:24 1 ML Vital Signs/I&O 12/17/18 07:18 Temp 97.8 Pulse 94 Resp 18 B/P (MAP) 133/93 (106) Pulse Ox 98 O2 Delivery Room Air Blood Pressure Mean: 106 Progress Progress Note : Progress Note Seen and evaluated. Dog bite secondary to injury of the animal and patient trying to assist. It was a family dog although not vaccinated. Given history of dog, rabies vaccination indicated as well as rabies immunoglobulin. Digital block to right index finger performed by Allyssa Zee APRN, under my direct supervision. Wound cleaning and irrigation accomplished. Infiltration with 2200 units of rabies immune globulin around wounds done. Rocephin 1 g IV ordered. We will continue outpatient treatment with cefuroxime 500 mg twice a day due to allergies. We will assist with outpatient therapy for rabies vaccination on day 3, 7 and 14. I have discussed the case with Dr. Mallory at [facility]. She will assist with medication prescription to their clinic pharmacy for the cefuroxime 500 mg by mouth twice a day 5 days. 0910: Suture repair is complete. Excellent approximation of wound to the right index finger. Nail receded in nailbed and secured with 2 sutures as well as to further sutures to close laceration loosely. Single suture to each wound on the leg to loosely approximate wounds. Tolerated procedure well with no complications. All wounds copiously irrigated and then infiltrated with the immunoglobulin. Did get 2 mL IM immune globulin injection to the left hip to complete dosing. Outpatient prescription for rabies vaccine for day 3, 7 and 14 ordered (12/20, 12/24, 12/31) and we will alternate deltoid right, left, right respectively. Discharged home with return precautions. Patient verbalize understanding instructions and agreement with plan. Wound to finger covered with Xeroform gauze and dressing. The rest of the wounds were covered with triple antibiotic ointment and dressing. Diagnostic Imaging Diagonstic Imaging: Xray Plain Films/CT/US/NM/MRI: hand Comments [facility], [place] NAME: MARCIO CEDEÑO [facility] REC#: [id number] PT STATUS: REG ER : 1985 PHYSICIAN: MOSES KATZ MD ADMIT DATE: 12/17/18/ER Draft Date of Exam:12/17/18 HAND, RIGHT, 3 VIEWS EXAMINATION: Right hand at 8:17 AM INDICATION: Dog bite Three views were obtained. There is a displaced fracture of the tuft of the distal phalanx of the second digit. There is approximately 2 MM of diastasis of the fracture fragments. There also appears to be soft tissue injury to the tip of the second digit but the soft tissues are obscured by overlying gauze. There is no radiopaque foreign body identified with certainty. There is no other fracture or acute bony abnormality identified. The overall appearance of the hand is otherwise stable when compared to the prior exam of 07/13/2018. IMPRESSION: 1. There is a displaced fracture of the tuft of the distal phalanx of the second digit with an associated soft tissue injury. 2. There is no sign of a radiopaque foreign body. Dictated on workstation # [id number] Dict: 12/17/18 0831 Trans: 12/17/18 0838 KAROLINA [id number] Interpreted by: TC RUSH MD Electronically signed by: Departure Impression Primary Impression: Dog bite Qualified Codes: W54.0XXA - Bitten by dog, initial encounter Additional Impressions: Nailbed laceration, finger Qualified Codes: S61.319A - Laceration without foreign body of unspecified finger with damage to nail, initial encounter Leg laceration Qualified Codes: S81.811A - Laceration without foreign body, right lower leg, initial encounter Disposition: 01 HOME, SELF-CARE Condition: Stable Departure-Patient Inst. Decision time for Depature: 09:18 Referrals: [facility] (PCP/Family) Primary Care Physician Patient Instructions: DOG BITE, Laceration Repair With Stitches (DC) Add. Discharge Instructions: All discharge instructions reviewed with patient and/or family. Voiced understanding. Return in 2 days here to the emergency department for wound check. You have an order sheet for rabies vaccination that will need to be done in the outpatient area on day 3, 7 and 14 correlating with date of 12/20, 12/24 and 12/31. The other wounds you may cover with antibiotic ointment and dressing and change those twice daily. Take medications as directed. You can get your antibiotic prescription filled at the [facility] pharmacy. That was called in by Dr. Mallory. The pain medicine prescription you have to get filled at your other local pharmacy. Return for worse pain, swelling, red streaks moving up the arm or leg, foul-smelling drainage, fever or other concerns as needed. It is okay to shower but do not soak wounds in any body of water until cleared including lakes, streams or ponds. Scripts Tramadol HCl (Tramadol HCl) 50 Mg Tablet 50 MG PO Q6H PRN for PAIN for 3 Days, #12 TAB 0 Refills Prov: MOSES KATZ MD 12/17/18 Copy Copies To 1: GERMAIN MALLORY MD, TIMOTHY D MD Dec 17, 2018 08:02
--- NOTE | 2018-12-17 08:39 | Diagnostic Imaging Report ---
EXAMINATION: Right hand at 8:17 AM INDICATION: Dog bite Three views were obtained. There is a displaced fracture of the tuft of the distal phalanx of the second digit. There is approximately 2 MM of diastasis of the fracture fragments. There also appears to be soft tissue injury to the tip of the second digit but the soft tissues are obscured by overlying gauze. There is no radiopaque foreign body identified with certainty. There is no other fracture or acute bony abnormality identified. The overall appearance of the hand is otherwise stable when compared to the prior exam of 07/13/2018. IMPRESSION: 1. There is a displaced fracture of the tuft of the distal phalanx of the second digit with an associated soft tissue injury. 2. There is no sign of a radiopaque foreign body. Dictated by: Dictated on workstation # [id number]
[2018-12-17] MEDS ORDERED: TRAM50TA2 PO (09:22)
[2018-12-17 09:30] VITALS: BP 123/71
== END 2018-12-17 09:29 | disposition home or self-care (01) ==
LOC: EDUNIT# 07:11 → ER 07:12
DX: S61.310A Laceration without foreign body of right index finger with damage to nail, initial encounter (principal); S81.811A Laceration without foreign body, right lower leg, initial encounter; J45.909 Unspecified asthma, uncomplicated; I10 Essential (primary) hypertension; G43.909 Migraine, unspecified, not intractable, without status migrainosus; E11.40 Type 2 diabetes mellitus with diabetic neuropathy, unspecified; F31.9 Bipolar disorder, unspecified; F43.10 Post-traumatic stress disorder, unspecified; F41.9 Anxiety disorder, unspecified; F90.9 Attention-deficit hyperactivity disorder, unspecified type; F42.9 Obsessive-compulsive disorder, unspecified; Z88.1 Allergy status to other antibiotic agents; Z88.5 Allergy status to narcotic agent; Z88.8 Allergy status to other drugs, medicaments and biological substances; Z91.041 Radiographic dye allergy status; Z87.891 Personal history of nicotine dependence; Z98.51 Tubal ligation status; W54.0XXA Bitten by dog, initial encounter
CPT/HCPCS: 12041; 29130; 73130; 90375; 90471; 90675; 90715; 96372; 96374; 96375

== ENCOUNTER 2018-12-19 09:12 | Emergency (ER) | payer SELFPAY ==
[~2018-12-19] VITALS: Ht 160 cm; Wt 99.8 kg
--- NOTE | 2018-12-19 10:17 | ED Suture Removal/Wound Check ---
Suture/Wound Re-check Suture Removal/Wound Recheck : Suture Removal/Wound Recheck: Dry/sterile dressing-appl Progress Here wound check specifically to the right index finger but also on the right lower extremity secondary to dog bite. Denies fever or increasing pain. Reports taking antibiotics as directed General Appearance: WD/WN, no apparent distress Neuro/Tendon: normal sensation, normal motor functions Skin Exam: normal color, warm/dry Comments Wounds to right lower extremity healing well without signs of infection. Covered with antibiotic ointment and Band-Aid. Wound to right index finger appears to be healing well without erythema or infection. No red streaks up the hand or arm. No significant swelling of the index finger. Cleaned, covered with antibiotic ointment and dressing. Physical Exam Vital Signs Vital Signs - First Documented 12/19/18 09:22 Pulse 102 Resp 18 B/P (MAP) 134/103 Pulse Ox 98 O2 Delivery Room Air Capillary Refill : General Appearance: WD/WN, no apparent distress Departure Impression Primary Impression: Visit for wound check Disposition: HOME, SELF-CARE Condition: Improved Departure-Patient Inst. Referrals: [facility] (PCP/Family) Primary Care Physician Patient Instructions: Wound Care (DC) Add. Discharge Instructions: All discharge instructions reviewed with patient and/or family. Voiced u nderstanding. Continue with antibiotic ointment and dressing changes at least once but up to twice daily and as needed if it becomes soiled. Continue with previous instructions regarding suture removal and wound care. Return for increasing pain, foul-smelling drainage, red streaks up the arm or leg, fever or other concerns as needed. Continue previously prescribed antibiotics as directed MOSES KATZ MD Dec 19, 2018 10:17
[2018-12-19 10:20] VITALS: BP 137/103
== END 2018-12-19 10:20 | disposition home or self-care (01) ==
LOC: EDUNIT# 09:12 → ER 09:13
DX: S61.250D Open bite of right index finger without damage to nail, subsequent encounter (principal); S81.851D Open bite, right lower leg, subsequent encounter; W54.0XXD Bitten by dog, subsequent encounter

== ENCOUNTER 2018-12-25 16:36 | Emergency (ER) | payer SELFPAY ==
[~2018-12-25] VITALS: Ht 160 cm; Wt 99.8 kg
[2018-12-25 17:14] VITALS: BP 143/107
[2018-12-25] MEDS ORDERED: CLIN300C11 PO (17:15)
--- NOTE | 2018-12-25 17:16 | ED Integumentary General ---
General Chief Complaint: Skin/Wound Problems Stated Complaint: WOUND CHECK,R INDEX FINGER Nursing Triage Note: Patient states that she was bitten by a dog on 12/17/18 and was seen in this ER. Patient states that there has been green and yellow discharge coming from the wound since yesterday. Patient also states that she was given antibiotics when she was seen in the ER for the initial injury and has finished those antibiotics. Patient has a wound on the right index finger. Tissue is macerated and there are some sutures noted. Source: patient Exam Limitations: no limitations History of Present Illness Date Seen by Provider: Dec 25, 2018 Time Seen by Provider: 17:12 Initial Comments Here for wound check, had a dog bite a few days ago. This was her own family dog, was not vaccinated against rabies so at the time of presentation to ER she did get some rabies injections around the bite. She was given 5 days of clindamycin which she has since finished. There is some firmness/induration around the right posterolateral calf. There is some serosanguineous drainage c oming from the most posterior wound. The most anterior wound still has a suture in it without drainage or surrounding erythema. The posterior wound has drainage but no surrounding erythema. There is ecchymosis. The right pointer finger still has sutures in place, there is some serous appearing drainage from this, a bit of erythema immediately adjacent to the sutures which is likely tissue reaction to the sutures, there is no cellulitis or lymphangitis that extends proximal to the DIP joint. There is no pain with passive or active flexion or extension of the finger. Timing/Duration: constant, week, other (they're getting better) Severity: moderate Associated Symptoms: denies symptoms Allergies and Home Medications Allergies Coded Allergies: guaifenesin (Verified Allergy, Intermediate, ANAPHYLAXIS, 03/28/12) Iodinated Contrast- Oral and IV Dye (Unverified Allergy, Mild, 11/11/11) amoxicillin (Verified Allergy, Mild, RASH-VOMITTING, 05/09/11) hydrocodone (Verified Allergy, Mild, RASH-VOMITTING, 05/09/11) Metronidazole HCl (Verified Allergy, Unknown, 12/23/13) codeine (Unverified Allergy, Unknown, 12/28/14) ketorolac (Unverified Allergy, Unknown, 05/19/18) ketorolac tromethamine (Verified Allergy, Unknown, 12/23/13) levofloxacin (Unverified Allergy, Unknown, 12/23/13) metronidazole (Verified Allergy, Unknown, 12/23/13) Uncoded Allergies: Catfish (Allergy, Intermediate, 12/28/14) Shortness of air Shell fish (Allergy, Unknown, 12/28/14) Home Medications Tramadol HCl 50 Mg Tablet, 50 MG PO Q6H PRN for PAIN Prescribed by: MOSES KATZ on 12/17/18 0922 Patient Home Medication List Home Medication List Reviewed: Yes Review of Systems Review of Systems Constitutional: see HPI; No chills, No fever EENTM: see HPI Respiratory: no symptoms reported Cardiovascular: no symptoms reported Genitourinary: no symptoms reported Musculoskeletal: no symptoms reported Skin: no symptoms reported Psychiatric/Neurological: No Symptoms Reported Past Ksqdbhp-Txkidj-Qdykpw Hx Patient Social History Alcohol Use: Denies Use Recreational Drug Use: No Smoking Status: Never a Smoker Type Used: Cigarettes Former Smoker, Quit: May 18, 2010 2nd Hand Smoke Exposure: No Recent Foreign Travel: No Contact w/Someone Who Travel: No Recent Infectious Disease Expo: No Recent Hopitalizations: No Physical Abuse: No Sexual Abuse: No Mistreated: No Fear: No Immunizations Up To Date Tetanus Booster (TDap): More than 5yrs Seasonal Allergies Seasonal Allergies: No Past Medical History Surgeries: Yes ("CYST" REMOVED FROM NECK AND LEFT ARM, R KNEE) Gallbladder, Orthopedic, Tubal Ligation Respiratory: Yes Asthma Cardiac: Yes Hypertension Neurological: Yes Headaches /Migraines, Neuropathy, Vertigo : No Last Menstrual Period: Dec 12, 2018 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 Disorders: No Female 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 Disorders: 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 Sexually Transmitted Disease: No Genitourinary: No Gastrointestinal: No Musculoskeletal: Yes Fractures Endocrine: Yes ("borderline diabetic") Diabetes, Non-Insulin dep HEENT: Yes Chronic Ear Infection Hearing Impairment: Hard of Hearing Cancer: No Psychosocial: Yes (OCD) ADD/ADHD, Anxiety, PTSD, Bipolar, Depression Integumentary: No Recent Skin Changes Blood Disorders: No Adverse Reaction/Blood Tranf: No Family Medical History No Pertinent Family Hx, Cancer, Diabetes, Hypertension Physical Exam Vital Signs Vital Signs - First Documented 12/25/18 16:56 Temp 97.3 Pulse 80 Resp 18 B/P (MAP) 143/107 (119) Pulse Ox 97 O2 Delivery Room Air Capillary Refill : Less Than 3 Seconds General Appearance: WD/WN Respiratory: no respiratory distress, no accessory muscle use Neurologic/Psychiatric: alert, normal mood/affect, oriented x 3 Skin: normal color, warm/dry Skin Problem Location: other (see history of present illness) Skin Problem Character: other (see history of present illness) Procedures/Interventions Suture Size: 4-0 Progress/Results/Core Measures Results/Orders Vital Signs/I&O 12/25/18 16:56 Temp 97.3 Pulse 80 Resp 18 B/P (MAP) 143/107 (119) Pulse Ox 97 O2 Delivery Room Air Blood Pressure Mean: 119 Departure Impression Primary Impression: Visit for wound check Disposition: HOME, SELF-CARE Condition: Stable Departure-Patient Inst. Decision time for Depature: 17:14 Referrals: [facility] ([place]) Primary Care Physician Patient Instructions: Wound Care (DC) Add. Discharge Instructions: Follow-up with Dr. KATZ on Sunday to have the stitches removed. Restart the antibiotics today. Return to ER for any red streaks up the finger or fevers. All discharge instructions reviewed with patient and/or family. Voiced understanding. Scripts Clindamycin HCl (Clindamycin HCl) 300 Mg Capsule 300 MG PO QID, #28 CAP Prov: GEOVANNA RIVERS APRN 12/25/18 GEOVANNA RIVERS APRN Dec 25, 2018 17:16
== END 2018-12-25 17:14 | disposition home or self-care (01) ==
LOC: EDUNIT# 16:36 → ER 16:38
DX: S61.250D Open bite of right index finger without damage to nail, subsequent encounter (principal); I10 Essential (primary) hypertension; J45.909 Unspecified asthma, uncomplicated; G43.909 Migraine, unspecified, not intractable, without status migrainosus; G62.9 Polyneuropathy, unspecified; E11.9 Type 2 diabetes mellitus without complications; F90.9 Attention-deficit hyperactivity disorder, unspecified type; F41.9 Anxiety disorder, unspecified; F43.10 Post-traumatic stress disorder, unspecified; F31.9 Bipolar disorder, unspecified; Z88.8 Allergy status to other drugs, medicaments and biological substances; Z88.0 Allergy status to penicillin; Z88.6 Allergy status to analgesic agent; Z88.5 Allergy status to narcotic agent; Z88.1 Allergy status to other antibiotic agents; Z91.041 Radiographic dye allergy status; Z87.891 Personal history of nicotine dependence; Z98.51 Tubal ligation status; W54.0XXD Bitten by dog, subsequent encounter
CPT/HCPCS: 99282

== ENCOUNTER 2018-12-30 09:17 | Emergency (ER) | payer SELFPAY ==
[~2018-12-30 09:17] MED LIST changes: +CLIN300C11 PO
--- NOTE | 2018-12-30 09:30 | NUR ---
pt here by self. pt alert gcs 15. pt here for suture removal 3 areas. 2 on right leg and 1 on right pointer finger. pt relates they were placed on december 17 and received 1 stitch each to 2 different wounds right leg and 4 sutures to right poionter finger. pt told wait 10-14 days till out and was here last week and was told to come here today to get them out. pt also has finger splint in place as well.wounds appear healed w/o sighns infection. however right leg is quite bruised and hard like hematoma and finger nail appears like it will fall off. 0941 dr arteaga looked at wounds and spoke with pt. is ok with all sutures to come out. told pt it will takes months to yrs for hematoma to go away and pt will eventually loose her nail bed. 0952 all sutures d/cd by me 1 stitch each leg wound and 4 stitch to pointer fingr. all w/o problems. pt left at 0955 aftr she sighned d/c paper. pt did receive suture removal instructions.
[2018-12-30 09:55] VITALS: BP 127/105
== END 2018-12-30 09:55 | disposition home or self-care (01) ==
LOC: EDUNIT# 09:17 → ER 09:18
DX: S61.210D Laceration without foreign body of right index finger without damage to nail, subsequent encounter (principal); S81.811D Laceration without foreign body, right lower leg, subsequent encounter; X58.XXXD Exposure to other specified factors, subsequent encounter

== ENCOUNTER 2018-12-31 14:27 | Outpatient (RCR) | payer SELFPAY ==
[2018-12-20 16:41] VITALS: BP 127/92
[2018-12-24 14:45] VITALS: BP 132/93
[~2018-12-31] VITALS: Ht 160 cm; Wt 99.8 kg
[~2018-12-31 14:27] MED LIST changes: +RABIES VACCINE HUMAN DIPL CELL 1 ML/2.5 UNITS SYR IM ONE; +RABIES VACCINE HUMAN DIPL CELL 1 ML/2.5 UNITS SYR ONE
[2018-12-31 14:42] VITALS: BP 0/0
== END 2018-12-31 14:42 | disposition home or self-care (01) ==
LOC: SDC 14:27
PROVIDERS: ATTEND Emergency Medicine
DX: Z23 Encounter for immunization (principal); Z20.3 Contact with and (suspected) exposure to rabies
CPT/HCPCS: 90471; 90675; 96372

== ENCOUNTER 2019-04-15 21:09 | Emergency (ER) | payer SELFPAY ==
[~2019-04-15] VITALS: Ht 160 cm; Wt 113.6 kg
[~2019-04-15 21:09] MED LIST changes: -RABIES VACCINE HUMAN DIPL CELL 1 ML/2.5 UNITS SYR IM ONE; -RABIES VACCINE HUMAN DIPL CELL 1 ML/2.5 UNITS SYR ONE
[2019-04-15] MEDS ORDERED: TRIAMCINOLONE 0.1% CR (KENALOG) 15 GM TUBE ONE (21:30)
[2019-04-15] MEDS ORDERED: diphenhydrAMINE 25 MG TAB (BENADRYL) PO ONE (21:30)
[2019-04-15] MEDS ORDERED: CEPH500T PO (21:30)
--- NOTE | 2019-04-15 21:30 | ED Integumentary General ---
General Chief Complaint: Skin/Wound Problems Stated Complaint: WOUND ON THE BACK OF RT ARM Nursing Triage Note: Pt ambulates to RM 10 with c/o poss spider bite to back of Rt upper arm. Pt states she noticed it yesterday and has gotten painful. Site is red and blanchable upon examination. Source: patient Exam Limitations: no limitations History of Present Illness Date Seen by Provider: Apr 15, 2019 Time Seen by Provider: 21:27 Initial Comments To ER with reports of some sort of an insect bite to the posterior right upper arm. She noticed this yesterday and has gotten more itchy today, she does report some pain. No known cause. No systemic symptoms. Timing/Duration: just prior to arrival Severity: moderate Possible Cause: no cause identified Associated Symptoms: denies symptoms Allergies and Home Medications Allergies Coded Allergies: guaifenesin (Verified Allergy, Intermediate, ANAPHYLAXIS, 03/28/12) Iodinated Contrast- Oral and IV Dye (Unverified Allergy, Mild, 11/11/11) amoxicillin (Verified Allergy, Mild, RASH-VOMITTING, 05/09/11) hydrocodone (Verified Allergy, Mild, RASH-VOMITTING, 05/09/11) Metronidazole HCl (Verified Allergy, Unknown, 12/23/13) codeine (Unverified Allergy, Unknown, 12/28/14) ketorolac (Unverified Allergy, Unknown, 05/19/18) ketorolac tromethamine (Verified Allergy, Unknown, 12/23/13) levofloxacin (Unverified Allergy, Unknown, 12/23/13) metronidazole (Verified Allergy, Unknown, 12/23/13) Uncoded Allergies: Catfish (Allergy, Intermediate, 12/28/14) Shortness of air Shell fish (Allergy, Unknown, 12/28/14) Home Medications Clindamycin HCl 300 Mg Capsule, 300 MG PO QID Prescribed by: GEOVANNA RIVERS on 12/25/18 1715 Tramadol HCl 50 Mg Tablet, 50 MG PO Q6H PRN for PAIN Prescribed by: MOSES KATZ on 12/17/18 0922 Patient Home Medication List Home Medication List Reviewed: Yes Review of Systems Review of Systems Constitutional: see HPI EENTM: see HPI Respiratory: no symptoms reported Cardiovascular: no symptoms reported Genitourinary: no symptoms reported Musculoskeletal: no symptoms reported Skin: see HPI Psychiatric/Neurological: No Symptoms Reported Endocrine: No Symptoms Reported Past Kkbylst-Septgx-Kkpfiq Hx Patient Social History Alcohol Use: Denies Use Recreational Drug Use: No Smoking Status: Former Smoker Type Used: Cigarettes Former Smoker, Quit: May 18, 2010 2nd Hand Smoke Exposure: No Recent Foreign Travel: No Contact w/Someone Who Travel: No Recent Infectious Disease Expo: No Recent Hopitalizations: No Physical Abuse: No Sexual Abuse: No Mistreated: No Fear: No Immunizations Up To Date Tetanus Booster (TDap): More than 5yrs Seasonal Allergies Seasonal Allergies: No Past Medical History Surgeries: Yes ("CYST" REMOVED FROM NECK AND LEFT ARM, R KNEE) Gallbladder, Orthopedic, Tubal Ligation Respiratory: Yes Asthma Cardiac: Yes Hypertension Neurological: Yes Headaches /Migraines, Neuropathy, Vertigo 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 Disorders: No Female 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 Disorders: 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 Sexually Transmitted Disease: No Genitourinary: No Gastrointestinal: No Musculoskeletal: Yes Fractures Endocrine: Yes ("borderline diabetic") Diabetes, Non-Insulin dep HEENT: Yes Chronic Ear Infection Hearing Impairment: Hard of Hearing Cancer: No Psychosocial: Yes (OCD) ADD/ADHD, Anxiety, PTSD, Bipolar, Depression Integumentary: No Recent Skin Changes Blood Disorders: No Adverse Reaction/Blood Tranf: No Family Medical History No Pertinent Family Hx, Cancer, Diabetes, Hypertension Physical Exam Vital Signs Vital Signs - First Documented 04/15/19 21:14 Temp 37.1 Pulse 84 Resp 18 B/P (MAP) 126/98 (107) Pulse Ox 100 O2 Delivery Room Air Capillary Refill : Less Than 3 Seconds General Appearance: WD/WN, no apparent distress HEENT: PERRL/EOMI, normal ENT inspection Neck: non-tender, full range of motion Respiratory: no respiratory distress, no accessory muscle use Neurologic/Psychiatric: alert, normal mood/affect, oriented x 3 Skin: normal color, warm/dry Skin Problem Location: upper extremities Skin Problem Character: other (erythematous well demarcated patch to the right upper arm without open or draining wound) Procedures/Interventions Suture Size: 4-0 Progress/Results/Core Measures Results/Orders My Orders Orders - GEOVANNA RIVERS APRN Diphenhydramine Tablet (Benadryl Tablet) (04/15/19 21:30) Triamcinolone 0.1% Cream 15 Gm (Kenalog (04/16/19 09:00) Vital Signs/I&O 04/15/19 21:14 Temp 37.1 Pulse 84 Resp 18 B/P (MAP) 126/98 (107) Pulse Ox 100 O2 Delivery Room Air Blood Pressure Mean: 107 POS Departure Impression Primary Impression: Lesion of upper extremity Disposition: HOME, SELF-CARE Condition: Stable Departure-Patient Inst. Decision time for Depature: 21:29 [facility] ([facility]Family) Primary Care Physician Patient Instructions: NO INSTRUCTIONS GIVEN Add. Discharge Instructions: 1. Return to ER for any concerns 2. If this progresses expanding beyond the borders that I've drawn then start antibiotics tomorrow. Cool compresses to the area. Return to ER for any worsening symptoms or other concerns. Follow-up with your doctor later this week for recheck. All discharge instructions reviewed with patient and/or family. Voiced understanding. Scripts Cephalexin (Cephalexin) 500 Mg Tablet 500 MG PO QID, #20 TAB 0 Refills Prov: GEOVANNA RIVERS APRN 04/15/19 GEOVANNA RIVERS APRN Apr 15, 2019 21:30 POS
[2019-04-15 21:40] VITALS: BP 126/98
[2019-04-16] MEDS ORDERED: TRIAMCINOLONE 0.1% CR (KENALOG) 15 GM TUBE TOP SCH (09:00)
== END 2019-04-15 21:41 | disposition home or self-care (01) ==
LOC: EDUNIT# 21:09 → ER 21:12
DX: L98.9 Disorder of the skin and subcutaneous tissue, unspecified (principal); J45.909 Unspecified asthma, uncomplicated; I10 Essential (primary) hypertension; E11.40 Type 2 diabetes mellitus with diabetic neuropathy, unspecified; G43.909 Migraine, unspecified, not intractable, without status migrainosus; F90.9 Attention-deficit hyperactivity disorder, unspecified type; F41.9 Anxiety disorder, unspecified; F43.10 Post-traumatic stress disorder, unspecified; F31.9 Bipolar disorder, unspecified; Z98.51 Tubal ligation status; Z91.041 Radiographic dye allergy status; Z88.8 Allergy status to other drugs, medicaments and biological substances; Z88.0 Allergy status to penicillin; Z88.5 Allergy status to narcotic agent; Z88.1 Allergy status to other antibiotic agents; Z87.891 Personal history of nicotine dependence; Z82.49 Family history of ischemic heart disease and other diseases of the circulatory system
CPT/HCPCS: 99283

== ENCOUNTER 2019-06-01 11:01 | Emergency (ER) | payer OTHER ==
[~2019-06-01] VITALS: Ht 160 cm; Wt 109.0 kg
[~2019-06-01 11:01] MED LIST changes: +CEPH500T PO; +TRM50T PO
--- NOTE | 2019-06-01 11:30 | ED General ---
General Chief Complaint: Cough/Cold/Flu Symptoms Stated Complaint: COUGH/CONGESTION/VOMITING Nursing Triage Note: PT AMB TO TRIAGE WITH COMPLAINT OF COUGH, CONGESITON, FEVER FOR A COUPLE DAYS. Nursing Sepsis Screen: No Definite Risk Source of Information: Patient Exam Limitations: No Limitations History of Present Illness Date Seen by Provider: Jun 01, 2019 Time Seen by Provider: 11:28 Initial Comments To ER with cough, nasal congestion, sore throat, nausea, vomiting but no diarrhea. Fever to a maximum of 99 onset yesterday. 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 Timing/Duration: 1-2 Days Severity: Moderate Associated Systoms: Cough, Fever/Chills, Nausea/Vomiting, Weakness Allergies and Home Medications Allergies Coded Allergies: guaifenesin (Verified Allergy, Intermediate, ANAPHYLAXIS, 03/28/12) Iodinated Contrast- Oral and IV Dye (Unverified Allergy, Mild, 11/11/11) amoxicillin (Verified Allergy, Mild, RASH-VOMITTING, 05/09/11) hydrocodone (Verified Allergy, Mild, RASH-VOMITTING, 05/09/11) Metronidazole HCl (Verified Allergy, Unknown, 12/23/13) codeine (Unverified Allergy, Unknown, 12/28/14) ketorolac (Unverified Allergy, Unknown, 05/19/18) ketorolac tromethamine (Verified Allergy, Unknown, 12/23/13) levofloxacin (Unverified Allergy, Unknown, 12/23/13) metronidazole (Verified Allergy, Unknown, 12/23/13) Uncoded Allergies: Catfish (Allergy, Intermediate, 12/28/14) Shortness of air Shell fish (Allergy, Unknown, 12/28/14) Home Medications Cephalexin 500 Mg Tablet, 500 MG PO QID Prescribed by: GEOVANNA RIVERS on 04/15/192129 Clindamycin HCl 300 Mg Capsule, 300 MG PO QID Prescribed by: GEOVANNA RIVERS on 12/25/18 171 Tramadol HCl 50 Mg Tablet, 50 MG PO Q6H PRN for PAIN Prescribed by: MOSES KATZ on 12/17/18 0945 Patient Home Medication List Home Medication List Reviewed: Yes Review of Systems Review of Systems Constitutional: see HPI, chills, fever, malaise, weakness EENTM: see HPI Respiratory: see HPI, cough Genitourinary: no symptoms reported Musculoskeletal: no symptoms reported Skin: no symptoms reported Psychiatric/Neurological: No Symptoms Reported Hematologic/Lymphatic: No Symptoms Reported Past Rvfgslo-Ptvfrw-Dpjovw Hx Patient Social History Alcohol Use: Denies Use Recreational Drug Use: No Smoking Status: Former Smoker Type Used: Cigarettes Former Smoker, Quit: May 18, 2010 2nd Hand Smoke Exposure: No Recent Foreign Travel: No Contact w/Someone Who Travel: No Recent Infectious Disease Expo: No Recent Hopitalizations: No Immunizations Up To Date Tetanus Booster (TDap): Unknown PED Vaccines UTD: Yes Seasonal Allergies Seasonal Allergies: No Past Medical History Surgeries: Yes ("CYST" REMOVED FROM NECK AND LEFT ARM, R KNEE) Gallbladder, Orthopedic, Tubal Ligation Respiratory: Yes Asthma Cardiac: Yes Hypertension Neurological: Yes Headaches /Migraines, Neuropathy, Vertigo 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 Disorders: No Female 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 Disorders: 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 Sexually Transmitted Disease: No Genitourinary: No Gastrointestinal: No Musculoskeletal: Yes Fractures Endocrine: Yes ("borderline diabetic") Diabetes, Non-Insulin dep HEENT: Yes Chronic Ear Infection Hearing Impairment: Hard of Hearing Cancer: No Psychosocial: Yes (OCD) ADD/ADHD, Anxiety, PTSD, Bipolar, Depression Integumentary: No Recent Skin Changes Blood Disorders: No Adverse Reaction/Blood Tranf: No Family Medical History No Pertinent Family Hx, Cancer, Diabetes, Hypertension Physical Exam Vital Signs Vital Signs - First Documented 06/01/19 11:04 Temp 36.5 Pulse 80 Resp 20 B/P (MAP) 144/81 (102) Pulse Ox 98 O2 Delivery Room Air Capillary Refill : Less Than 3 Seconds Height, Weight, BMI Height: 5'3.00" Weight: 220lbs. 0.0oz. [id number]; 42.00 BMI Method:Stated General Appearance: No Apparent Distress, WD/WN Eyes: Bilateral Eye Normal Inspection, Bilateral Eye PERRL, Bilateral Eye EOMI Neck: Full Range of Motion, Normal Inspection Respiratory: Normal Breath Sounds, No Accessory Muscle Use, No Respiratory Distress Cardiovascular: Regular Rate, Rhythm, Normal Peripheral Pulses Gastrointestinal: Non Tender, Soft Extremity: Normal Capillary Refill, Normal Inspection Neurologic/Psychiatric: Alert, Oriented x3 Skin: Normal Color, Warm/Dry Procedures/Interventions Suture Size: 4-0 Progress/Results/Core Measures Suspected Sepsis Recent Fever Within 48 Hours: No Infection Criteria Present: None New/Unexplained Altered Menta: No Sepsis Screen: No Definite Risk SIRS Temperature: Pulse: 80 Respiratory Rate: 20 Blood Pressure 144 /81 Mean: 102 Results/Orders My Orders Orders - GEOVANNA RIVERS APRN Rapid Strep A Screen (06/01/19 11:26) Influenza A And B Antigens (06/01/19 11:26) Vital Signs/I&O 06/01/19 11:04 Temp 36.5 Pulse 80 Resp 20 B/P (MAP) 144/81 (102) Pulse Ox 98 O2 Delivery Room Air Capillary Refill : Less Than 3 Seconds Blood Pressure Mean: 102 Departure Impression Primary Impression: Viral syndrome Disposition: HOME, SELF-CARE Condition: Improved Departure-Patient Inst. Decision time for Depature: 11:49 Referrals: [facility]/ (PCP/Family) Primary Care Physician Patient Instructions: VIRAL SYNDROME Add. Discharge Instructions: 1. Tylenol and Motrin for pain or fever. Nausea medication as directed. Hhnv-ubm-xgqvswf DayQuil and NyQuil for congestion and cough control. All discharge instructions reviewed with patient and/or family. Voiced understanding. Scripts Ondansetron (Ondansetron Odt) 4 Mg Tab.rapdis 4 MG PO Q6H PRN for NAUSEA/VOMITING, #8 TAB 0 Refills Prov: GEOVANNA RIVERS APRN 06/01/19 Work/School Note: Work Release Form Date Seen in the Emergency Department: Jun 01, 2019 Return to Work: Jun 04, 2019 GEOVANNA RIVERS APRN Jun 01, 2019 11:30
[2019-06-01] MEDS ORDERED: ONDA4TAB11 PO (11:52)
[2019-06-01 12:21] VITALS: BP 144/81
== END 2019-06-01 12:21 | disposition home or self-care (01) ==
LOC: EDUNIT# 11:01 → ER 11:02
DX: B34.9 Viral infection, unspecified (principal); J45.909 Unspecified asthma, uncomplicated; I10 Essential (primary) hypertension; G43.909 Migraine, unspecified, not intractable, without status migrainosus; E11.40 Type 2 diabetes mellitus with diabetic neuropathy, unspecified; F41.9 Anxiety disorder, unspecified; F90.9 Attention-deficit hyperactivity disorder, unspecified type; F43.10 Post-traumatic stress disorder, unspecified; F31.9 Bipolar disorder, unspecified; Z91.041 Radiographic dye allergy status; Z88.0 Allergy status to penicillin; Z88.5 Allergy status to narcotic agent; Z88.1 Allergy status to other antibiotic agents; Z88.8 Allergy status to other drugs, medicaments and biological substances; Z87.891 Personal history of nicotine dependence; Z98.51 Tubal ligation status; Z82.49 Family history of ischemic heart disease and other diseases of the circulatory system
CPT/HCPCS: 87430; 87804

== ENCOUNTER 2019-12-30 22:07 | Emergency (ER) | payer SELFPAY ==
[~2019-12-30] VITALS: Ht 160 cm; Wt 113.0 kg
[~2019-12-30 22:07] MED LIST changes: +ONDA4TAB11 PO
[2019-12-30 22:33] VITALS: BP 143/96
--- NOTE | 2019-12-31 01:30 | NUR ---
PT LEFT WITHOUT BEING SEEN BY PROVIDER. DID NOT REPORT TO ER REGISTRATION TO NOTIFY ER [facility]F DE FROID.
== END 2019-12-31 01:30 | disposition left against medical advice (07) ==
LOC: EDUNIT# 22:07 → ER 22:09
DX: R30.0 Dysuria (principal); M54.9 Dorsalgia, unspecified

== ENCOUNTER 2020-09-25 14:47 | Emergency (ER) | payer SELFPAY ==
[~2020-09-25] VITALS: Ht 160 cm; Wt 122.0 kg
[~2020-09-25 14:47] MED LIST changes: -CLIN300C11 PO; +CLIN300C12 PO; -LISI-552 PO; +LISI20TA26 PO; +SERT-412 PO; -SERT25TA5 PO
[2020-09-25] MEDS ORDERED: ONDANSETRON 4 MG/2 ML (SDV) Z0FRAN IVP ONE (15:45)
[2020-09-25] MEDS ORDERED: NS IV 1000 ML 1,000 ML IV SCH (15:45)
[2020-09-25 15:55] LABS: BASOPHILS # (AUTO) 0.1 10^3/uL (0.0-0.1); BASOPHILS % (AUTO) 0 % (0-10); BILIRUBIN,URINE NEGATIVE (NEGATIVE); CLARITY,URINE SL CLOUDY; COLOR,URINE YELLOW; EOSINOPHILS # (AUTO) 0.2 10^3/uL (0.0-0.3); EOSINOPHILS % (AUTO) 1 % (0-10); GLUCOSE, URINE (UA) NEGATIVE (NEGATIVE); HEMATOCRIT 39 % (35-52); HEMOGLOBIN 11.7 g/dL (11.5-16.0); KETONES,URINE NEGATIVE (NEGATIVE); LEUKOCYTE ESTERASE ,URINE 1+ (NEGATIVE); LYMPHOCYTES # (AUTO) 2.5 10^3/uL (1.0-4.0); LYMPHOCYTES % (AUTO) 18 % (12-44); MEAN CORPUSCULAR HEMOGLOBIN 26 pg (25-34); MEAN CORPUSCULAR HGB CONC 30 g/dL (32-36); MEAN CORPUSCULAR VOLUME 88 fL (80-99); MEAN PLATELET VOLUME 9.4 fL (9.0-12.2); MONOCYTES % (AUTO) 7 % (0-12); NEUTROPHILS # (AUTO) 10.4 10^3/uL (1.8-7.8); NEUTROPHILS % (AUTO) 73 % (42-75); NITRITE,URINE NEGATIVE (NEGATIVE); PLATELET COUNT 392 10^3/uL (130-400); PROTEIN,URINE NEGATIVE (NEGATIVE); WHITE BLOOD COUNT 14.2 10^3/uL (4.3-11.0)
--- NOTE | 2020-09-25 15:59 | ED GI ---
General Chief Complaint: Abdominal/GI Problems Stated Complaint: VOMITING/DIZZY Nursing Triage Note: Pt c/o nausea/vomiting onset Sunday Sepsis Screen: No Definite Risk Source of Information: Patient Exam Limitations: No Limitations History of Present Illness Date Seen by Provider: September 25, 2020 Time Seen by Provider: 14:57 Initial Comments To ER by private vehicle with reports of 1 week history of nausea and vomiting secondary to intense dizziness. No history of this. No abdominal pain. No diarrhea. No fever no chills no cough no shortness of breath. Timing/Duration: 1-2 Days Severity/Quality: Moderate Location: Generalized Abdomen Radiation: No Radiation Activities at Onset: None Associated Symptoms: Nausea/Vomiting Allergies and Home Medications Allergies Coded Allergies: guaifenesin (Verified Allergy, Intermediate, ANAPHYLAXIS, 03/28/12) Iodinated Contrast- Oral and IV Dye (Unverified Allergy, Mild, 11/11/11) amoxicillin (Verified Allergy, Mild, RASH-VOMITTING, 05/09/11) hydrocodone (Verified Allergy, Mild, RASH-VOMITTING, 05/09/11) Metronidazole HCl (Verified Allergy, Unknown, 12/23/13) codeine (Unverified Allergy, Unknown, 12/28/14) ketorolac (Unverified Allergy, Unknown, 05/19/18) ketorolac tromethamine (Verified Allergy, Unknown, 12/23/13) levofloxacin (Unverified Allergy, Unknown, 12/23/13) metronidazole (Verified Allergy, Unknown, 12/23/13) Uncoded Allergies: Catfish (Allergy, Intermediate, 12/28/14) Shortness of air Shell fish (Allergy, Unknown, 12/28/14) Home Medications Cephalexin 500 Mg Tablet, 500 MG PO QID Prescribed by: GEOVANNA RIVERS on 04/15/19 2130 Clindamycin HCl 300 Mg Capsule, 300 MG PO QID Prescribed by: GEOVANNA RIVERS on 12/25/18 1715 Ondansetron 4 Mg Tab.rapdis, 4 MG PO Q6H PRN for NAUSEA/VOMITING Prescribed by: GEOVANNA RIVERS on 06/01/19 1152 Tramadol HCl 50 Mg Tablet, 50 MG PO Q6H PRN for PAIN Prescribed by: MOSES KATZ on 12/17/18 0922 Patient Home Medication List Home Medication List Reviewed: Yes Review of Systems Review of Systems Constitutional: see HPI; No chills; dizziness; No fever EENTM: No Symptoms Reported Respiratory: No Symptoms Reported Cardiovascular: No Symptoms Reported Gastrointestinal: No Symptoms Reported Genitourinary: No Symptoms Reported Musculoskeletal: no symptoms reported Skin: no symptoms reported Psychiatric/Neurological: No Symptoms Reported Endocrine: No Symptoms Reported Hematologic/Lymphatic: No Symptoms Reported Past Wdwapha-Fxoctv-Wgjeeu Hx Patient Social History Alcohol Use: Denies Use Type Used: Cigarettes Former Smoker, Quit: May 18, 2010 2nd Hand Smoke Exposure: No Recent Infectious Disease Expo: No Recent Hopitalizations: No Immunizations Up To Date Tetanus Booster (TDap): Unknown PED Vaccines UTD: Yes Seasonal Allergies Seasonal Allergies: No Past Medical History Surgeries: Yes ("CYST" REMOVED FROM NECK AND LEFT ARM, R KNEE) Gallbladder, Orthopedic, Tubal Ligation Respiratory: Yes Asthma Cardiac: Yes Hypertension Neurological: Yes Headaches /Migraines, Neuropathy, Vertigo 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 Disorders: No Female 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 Disorders: 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 Sexually Transmitted Disease: No Genitourinary: No Gastrointestinal: No Musculoskeletal: Yes Fractures Endocrine: Yes ("borderline diabetic") Diabetes, Non-Insulin dep HEENT: Yes Chronic Ear Infection Hearing Impairment: Hard of Hearing Cancer: No Psychosocial: Yes (OCD) ADD/ADHD, Anxiety, PTSD, Bipolar, Depression Integumentary: No Recent Skin Changes Blood Disorders: No Adverse Reaction/Blood Tranf: No Family Medical History No Pertinent Family Hx, Cancer, Diabetes, Hypertension Physical Exam Vital Signs Vital Signs - First Documented 09/25/20 15:10 Temp 36.7 Pulse 96 Resp 17 B/P (MAP) 163/97 (119) Pulse Ox 98 O2 Delivery Room Air Capillary Refill : Less Than 3 Seconds Height/Weight/BMI Height: 5'3.00" Weight: 220lbs. 0.0oz. 99.057280bk; 47.00 BMI Method:Stated General Appearance: WD/WN, no apparent distress HEENT: PERRL/EOMI, normal ENT inspection, other (There is no nystagmus) Neck: non-tender, full range of motion Respiratory: normal breath sounds, no respiratory distress, no accessory muscle use Cardiovascular: regular rate, rhythm, no murmur Gastrointestinal: normal bowel sounds, non tender, soft Extremities: normal range of motion, non-tender Neurologic/Psychiatric: alert, normal mood/affect, oriented x 3 Skin: normal color, warm/dry Procedures/Interventions Suture Size: 4-0 Progress/Results/Core Measures Results/Orders Lab Results Laboratory Tests Test 09/25/20 15:45 Range/Units White Blood Count 14.2 H 4.3-11.0 10^3/uL Red Blood Count 4.46 3.80-5.11 10^6/uL Hemoglobin 11.7 11.5-16.0 g/dL Hematocrit 39 35-52 % Mean Corpuscular Volume 88 80-99 fL Mean Corpuscular Hemoglobin 26 25-34 pg Mean Corpuscular Hemoglobin Concent 30 L 32-36 g/dL Red Cell Distribution Width 14.3 10.0-14.5 % Platelet Count 392 130-400 10^3/uL Mean Platelet Volume 9.4 9.0-12.2 fL Immature Granulocyte % (Auto) 0 % Neutrophils (%) (Auto) 73 42-75 % Lymphocytes (%) (Auto) 18 12-44 % Monocytes (%) (Auto) 7 0-12 % Eosinophils (%) (Auto) 1 0-10 % Basophils (%) (Auto) 0 0-10 % Neutrophils # (Auto) 10.4 H 1.8-7.8 10^3/uL Lymphocytes # (Auto) 2.5 1.0-4.0 10^3/uL Monocytes # (Auto) 1.0 0.0-1.0 10^3/uL Eosinophils # (Auto) 0.2 0.0-0.3 10^3/uL Basophils # (Auto) 0.1 0.0-0.1 10^3/uL Immature Granulocyte # (Auto) 0.1 0.0-0.1 10^3/uL Neutrophils % (Manual) 73 % Lymphocytes % (Manual) 23 % Monocytes % (Manual) 3 % Eosinophils % (Manual) 1 % Basophils % (Manual) 0 % Band Neutrophils 0 % Blood Morphology Comment NORMAL Urine Color YELLOW Urine Clarity SL CLOUDY Urine pH 6.0 5-9 Urine Specific [place] >=1.030 1.016-1.022 Urine Protein NEGATIVE NEGATIVE Urine Glucose (UA) NEGATIVE NEGATIVE Urine Ketones NEGATIVE NEGATIVE Urine Nitrite NEGATIVE NEGATIVE Urine Bilirubin NEGATIVE NEGATIVE Urine Urobilinogen 0.2 < = 1.0 MG/DL Urine Leukocyte Esterase 1+ H NEGATIVE Urine RBC (Auto) 2+ H NEGATIVE Urine RBC RARE /HPF Urine WBC 0-2 /HPF Urine Squamous Epithelial Cells 5-10 /HPF Urine Crystals NONE /LPF Urine Bacteria MODERATE H /HPF Urine Casts NONE /LPF Urine Mucus MODERATE H /LPF Urine Culture Indicated YES Sodium Level 137 135-145 MMOL/L Potassium Level 3.9 3.6-5.0 MMOL/L Chloride Level 105 98-107 MMOL/L Carbon Dioxide Level 21 21-32 MMOL/L Anion Gap 11 5-14 MMOL/L Blood Urea Nitrogen 7 7-18 MG/DL Creatinine 0.69 0.60-1.30 MG/DL Estimat Glomerular Filtration Rate > 60 BUN/Creatinine Ratio 10 Glucose Level 94 70-105 MG/DL Calcium Level 9.2 8.5-10.1 MG/DL Corrected Calcium 9.2 8.5-10.1 MG/DL Total Bilirubin 0.4 0.1-1.0 MG/DL Aspartate Amino Transf (AST/SGOT) 24 5-34 U/L Alanine Aminotransferase (ALT/SGPT) 20 0-55 U/L Alkaline Phosphatase 88 40-136 U/L Total Protein 8.0 6.4-8.2 GM/DL Albumin 4.0 3.2-4.5 GM/DL Lipase 25 8-78 U/L Serum Test, Qualitative NEGATIVE NEGATIVE My Orders Orders - GEOVANNA RIVERS KILN REPAIRER Cbc With Automated Diff (09/25/20 15:39) Lipase (09/25/20 15:39) Ua Culture If Indicated (09/25/20 15:39) Hcg,Qualitative Serum (09/25/20 15:39) Comprehensive Metabolic Panel (09/25/20 15:39) Ns Iv 1000 Ml (Sodium Chloride 0.9%) (09/25/20 15:45) Ondansetron Injection (Zofran Injectio (09/25/20 15:45) Manual Differential (09/25/20 15:45) Ct Head Wo (09/25/20 15:57) Scopolamine Patch (Transderm-Scop Patch) (09/25/20 16:00) Urine Culture (09/25/20 15:45) Medications Given in ED Current Medications Medications Dose Ordered Sig/Felisha Route Start Time Stop Time Status Last Admin Dose Admin Ondansetron HCl 8 mg ONCE ONCE IVP 09/25/20 15:45 09/25/20 15:46 DC 09/25/20 15:52 8 MG Scopolamine 1.5 mg ONCE ONCE TD 09/25/20 16:00 09/25/20 16:01 DC 09/25/20 16:31 1.5 MG Vital Signs/I&O 09/25/20 15:10 Temp 36.7 Pulse 96 Resp 17 B/P (MAP) 163/97 (119) Pulse Ox 98 O2 Delivery Room Air Blood Pressure Mean: 119 Departure Communication (Admissions) 1702-feeling better. Nausea is gone, dizziness is better but still there. Scopolamine patch has been applied. This will take a few hours to notice full effect. We'll discharged home with prescription for Zofran. Return for worsening symptoms. Impression Primary Impression: Vertigo Disposition: HOME, SELF-CARE Condition: Stable Departure-Patient Inst. Decision time for Depature: 17:03 Referrals: [facility] (PCP/Family) Primary Care Physician Patient Instructions: Vertigo (a Type of Dizziness) (DC) Add. Discharge Instructions: 1. Return to ER for any concerns. Follow-up with your doctor next week. Leave the scopolamine patch on behind the ear for about 48 hours. All discharge instructions reviewed with patient and/or family. Voiced understanding. Scripts Ondansetron (Ondansetron Odt) 8 Mg Tab.rapdis 8 MG PO Q6H PRN for NAUSEA/VOMITING, #10 TAB Prov: GEOVANNA RIVERS APRN 09/25/20 GEOVANNA RIVERS APRN September 25, 2020 15:59
[2020-09-25] MEDS ORDERED: SCOPOLAMINE 1.5 MG (TRANSDERM-SCOP) PATCH TD ONE (16:00)
[2020-09-25 16:03] LABS: BACTERIA,URINE MODERATE /HPF; RBC,URINE RARE /HPF; WBC,URINE 0-2 /HPF
[2020-09-25 16:06] LABS: CHLORIDE 105 MMOL/L (98-107); POTASSIUM 3.9 MMOL/L (3.6-5.0); SODIUM 137 MMOL/L (135-145)
[2020-09-25 16:07] LABS: CALCIUM 9.2 MG/DL (8.5-10.1)
[2020-09-25 16:08] LABS: GLUCOSE 94 MG/DL (70-105)
[2020-09-25 16:10] LABS: BILIRUBIN,TOTAL 0.4 MG/DL (0.1-1.0); CARBON DIOXIDE 21 MMOL/L (21-32)
[2020-09-25 16:11] LABS: BAND NEUTROPHILS 0 %; BASOPHILS % (MANUAL) 0 %; EOSINOPHILS % (MANUAL) 1 %; LYMPHOCYTES % (MANUAL) 23 %; MONOCYTES % (MANUAL) 3 %; NEUTROPHILS % (MANUAL) 73 %
[2020-09-25 16:12] LABS: ALKALINE PHOSPHATASE 88 U/L (40-136); CREATININE SERUM 0.69 MG/DL (0.60-1.30); GFR ESTIMATED > 60; RBC MORPH NORMAL
[2020-09-25 16:13] LABS: BUN/CREATININE RATIO 10
[2020-09-25 16:15] LABS: ALANINE AMINOTRANSFERASE 20 U/L (0-55); LIPASE 25 U/L (8-78)
--- NOTE | 2020-09-25 16:42 | Diagnostic Imaging Report ---
Procedure: CT head without contrast. Technique: Multiple contiguous axial images were obtained through the brain without the use of intravenous contrast. Auto Exposure Controls were utilized during the CT exam to meet ALARA standards for radiation dose reduction. Indication: Altered mental status with dizziness for one week. Comparison: 02/28/2016. Discussion: No adverse interval change. No acute intracranial hemorrhage, mass, midline shift or hydrocephalus. The ventricles and sulci are normal in size and configuration for age. The orbits, sinuses, mastoid air cells and calvarium are unremarkable. Impression: Stable negative head CT. Dictated by: Dictated on workstation # [id number]
[2020-09-25] MEDS ORDERED: ONDA8TAB13 PO (17:04)
[2020-09-25 17:18] VITALS: BP 159/82
== END 2020-09-25 17:18 | disposition home or self-care (01) ==
LOC: EDUNIT# 14:47 → ER 14:51
DX: R42 Dizziness and giddiness (principal); I10 Essential (primary) hypertension; J45.909 Unspecified asthma, uncomplicated; Z87.891 Personal history of nicotine dependence; Z88.1 Allergy status to other antibiotic agents; Z88.5 Allergy status to narcotic agent; Z88.8 Allergy status to other drugs, medicaments and biological substances; Z32.02 Encounter for pregnancy test, result negative
CPT/HCPCS: 36415; 70450; 80053; 81000; 83690; 84703; 85007; 85027; 87088

== ENCOUNTER 2020-11-19 17:17 | Emergency (ER) | payer SELFPAY ==
[~2020-11-19] VITALS: Ht 160 cm; Wt 115.0 kg
--- NOTE | 2020-11-19 17:57 | ED Respiratory ---
General Chief Complaint: Respiratory Problems Stated Complaint: COVID POSITIVE - SOA/COUGH/DIAS/RUNNY NOSE Nursing Triage Note: Pt ambulatory to ED. Pt reports symptoms began yesterday and pt tested positive for COVID at [facility] today. Pt c/o SOB, cough. Pt has hx of asthma and has been using inhaler. Pt c/o headache. Source: patient Exam Limitations: no limitations History of Present Illness Date Seen by Provider: Nov 19, 2020 Time Seen by Provider: 17:50 Initial Comments To ER with reports of fever cough chills shortness of breath. Symptoms began yesterday, she tested positive for Covid today. Timing/Duration: just prior to arrival Severity: moderate Associated Symptoms: cough, fever/chills, headache Allergies and Home Medications Allergies Coded Allergies: guaifenesin (Verified Allergy, Intermediate, ANAPHYLAXIS, 03/28/12) Iodinated Contrast- Oral and IV Dye (Unverified Allergy, Mild, 11/11/11) amoxicillin (Verified Allergy, Mild, RASH-VOMITTING, 05/09/11) hydrocodone (Verified Allergy, Mild, RASH-VOMITTING, 05/09/11) Metronidazole HCl (Verified Allergy, Unknown, 12/23/13) codeine (Unverified Allergy, Unknown, 12/28/14) ketorolac (Unverified Allergy, Unknown, 05/19/18) ketorolac tromethamine (Verified Allergy, Unknown, 12/23/13) levofloxacin (Unverified Allergy, Unknown, 12/23/13) metronidazole (Verified Allergy, Unknown, 12/23/13) Uncoded Allergies: Catfish (Allergy, Intermediate, 12/28/14) Shortness of air Shell fish (Allergy, Unknown, 12/28/14) Home Medications Cephalexin 500 Mg Tablet, 500 MG PO QID Prescribed by: GEOVANNA RIVERS on 04/15/19 213 Clindamycin HCl 300 Mg Capsule, 300 MG PO QID Prescribed by: GEOVANNA RIVERS on 12/25/18 1715 Ondansetron 4 Mg Tab.rapdis, 4 MG PO Q6H PRN for NAUSEA/VOMITING Prescribed by: GEOVANNA RIVERS on 06/01/19 1152 Ondansetron 8 Mg Tab.rapdis, 8 MG PO Q6H PRN for NAUSEA/VOMITING Prescribed by: GEOVANNA RIVERS on 09/25/20 1704 Tramadol HCl 50 Mg Tablet, 50 MG PO Q6H PRN for PAIN Prescribed by: MOSES KATZ on 12/17/18 0922 Patient Home Medication List Home Medication List Reviewed: Yes Review of Systems Review of Systems Constitutional: see HPI, chills, fever, malaise EENTM: see HPI Respiratory: see HPI, cough Cardiovascular: no symptoms reported Genitourinary: no symptoms reported Musculoskeletal: no symptoms reported Skin: no symptoms reported Psychiatric/Neurological: No Symptoms Reported Hematologic/Lymphatic: No Symptoms Reported Past Esysouk-Notwmm-Ebwcld Hx Patient Social History Alcohol Use: Denies Use Smoking Status: Former Smoker Type Used: Cigarettes Former Smoker, Quit: May 18, 2010 2nd Hand Smoke Exposure: No Recent Infectious Disease Expo: Yes (COVID) Recent Hopitalizations: No Immunizations Up To Date Tetanus Booster (TDap): Unknown PED Vaccines UTD: Yes Seasonal Allergies Seasonal Allergies: No Past Medical History Surgeries: Yes ("CYST" REMOVED FROM NECK AND LEFT ARM, R KNEE) Gallbladder, Orthopedic, Tubal Ligation Respiratory: Yes Asthma Cardiac: Yes Hypertension Neurological: Yes Headaches /Migraines, Neuropathy, Vertigo 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 Disorders: No 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 Sexually Transmitted Disease: No Genitourinary: No Gastrointestinal: No Musculoskeletal: Yes Fractures Endocrine: Yes ("borderline diabetic") Diabetes, Non-Insulin dep HEENT: Yes Chronic Ear Infection Hearing Impairment: Hard of Hearing Cancer: No Psychosocial: Yes (OCD) ADD/ADHD, Anxiety, PTSD, Bipolar, Depression Integumentary: No Recent Skin Changes Blood Disorders: No Adverse Reaction/Blood Tranf: No Family Medical History No Pertinent Family Hx, Cancer, Diabetes, Hypertension Physical Exam Vital Signs - First Documented 11/19/20 17:50 Temp 37.0 Pulse 89 Resp 20 B/P (MAP) 144/109 (121) Pulse Ox 100 O2 Delivery Room Air Capillary Refill : Less Than 3 Seconds Height: 5'3.00" Weight: 220lbs. 0.0oz. 99.411684dz; 44.00 BMI Method:Stated General Appearance: WD/WN, no apparent distress, other (Oxygen saturation 99 to 100% room air, heart rate 90, respiratory rate is 18) Eyes: Bilateral Eye Normal Inspection, Bilateral Eye PERRL, Bilateral Eye EOMI Neck: non-tender, full range of motion Respiratory: no respiratory distress, no accessory muscle use Gastrointestinal: normal bowel sounds, non tender, soft Neurologic/Psychiatric: alert, normal mood/affect, oriented x 3 Skin: normal color, warm/dry Procedures/Interventions Suture Size: 4-0 Progress/Results/Core Measures Suspected Sepsis Recent Fever Within 48 Hours: No Infection Criteria Present: None New/Unexplained Altered Menta: No Sepsis Screen: No Definite Risk SIRS Temperature: Pulse: 89 Respiratory Rate: 20 Laboratory Tests 11/19/20 18:00: White Blood Count 6.4 Blood Pressure 144 /109 Mean: 121 Laboratory Tests 11/19/20 18:00: Creatinine 0.77, Platelet Count 290, Total Bilirubin 0.4 Results/Orders Lab Results Laboratory Tests Test 11/19/20 18:00 Range/Units White Blood Count 6.4 4.3-11.0 10^3/uL Red Blood Count 4.32 3.80-5.11 10^6/uL Hemoglobin 11.5 11.5-16.0 g/dL Hematocrit 37 35-52 % Mean Corpuscular Volume 85 80-99 fL Mean Corpuscular Hemoglobin 27 25-34 pg Mean Corpuscular Hemoglobin Concent 31 L 32-36 g/dL Red Cell Distribution Width 13.9 10.0-14.5 % Platelet Count 290 130-400 10^3/uL Mean Platelet Volume 9.2 9.0-12.2 fL Immature Granulocyte % (Auto) 0 % Neutrophils (%) (Auto) 71 42-75 % Lymphocytes (%) (Auto) 13 12-44 % Monocytes (%) (Auto) 15 H 0-12 % Eosinophils (%) (Auto) 1 0-10 % Basophils (%) (Auto) 0 0-10 % Neutrophils # (Auto) 4.6 1.8-7.8 10^3/uL Lymphocytes # (Auto) 0.8 L 1.0-4.0 10^3/uL Monocytes # (Auto) 1.0 0.0-1.0 10^3/uL Eosinophils # (Auto) 0.1 0.0-0.3 10^3/uL Basophils # (Auto) 0.0 0.0-0.1 10^3/uL Immature Granulocyte # (Auto) 0.0 0.0-0.1 10^3/uL Sodium Level 141 135-145 MMOL/L Potassium Level 3.5 L 3.6-5.0 MMOL/L Chloride Level 106 98-107 MMOL/L Carbon Dioxide Level 22 21-32 MMOL/L Anion Gap 13 5-14 MMOL/L Blood Urea Nitrogen 6 L 7-18 MG/DL Creatinine 0.77 0.60-1.30 MG/DL Estimat Glomerular Filtration Rate > 60 BUN/Creatinine Ratio 8 Glucose Level 92 70-105 MG/DL Calcium Level 8.7 8.5-10.1 MG/DL Corrected Calcium 8.8 8.5-10.1 MG/DL Total Bilirubin 0.4 0.1-1.0 MG/DL Aspartate Amino Transf (AST/SGOT) 26 5-34 U/L Alanine Aminotransferase (ALT/SGPT) 24 0-55 U/L Alkaline Phosphatase 79 40-136 U/L C-Reactive Protein High Sensitivity 5.00 H 0.00-0.50 MG/DL Total Protein 8.1 6.4-8.2 GM/DL Albumin 3.9 3.2-4.5 GM/DL My Orders Orders - GEOVANNA RIVERS ADVERTISING SALES CONSULTANT Cbc With Automated Diff (11/19/20 17:45) Hs C Reactive Protein (11/19/20 17:45) Comprehensive Metabolic Panel (11/19/20 17:45) Ed Iv/Invasive Line Start (11/19/20 17:45) Fibrin Degradation Products (11/19/20 17:45) Chest 1 View, Ap/Pa Only (11/19/20 17:45) Procalcitonin (Pct) (11/19/20 17:45) Ibuprofen Tablet (Motrin Tablet) (11/19/20 18:15) Acetaminophen Tablet/Caplet (Tylenol T (11/19/20 18:15) Medications Given in ED Current Medications Medications Dose Ordered Sig/Felisha Route Start Time Stop Time Status Last Admin Dose Admin Acetaminophen 650 mg ONCE ONCE PO 11/19/20 18:15 11/19/20 18:16 DC 11/19/20 18:15 650 MG Ibuprofen 800 mg ONCE ONCE PO 11/19/20 18:15 11/19/20 18:16 DC 11/19/20 18:15 800 MG Vital Signs/I&O 11/19/20 17:50 Temp 37.0 Pulse 89 Resp 20 B/P (MAP) 144/109 (121) Pulse Ox 100 O2 Delivery Room Air Capillary Refill : Less Than 3 Seconds Blood Pressure Mean: 121 Departure Communication (Admissions) [id number] will not order a D-dimer on her because she is allergic to IV contrast stating that she has an anaphylactic reaction to it. The D-dimer will likely be elevated simply as a function of the Covid. She does not have any other sign of pulmonary embolism as she is not tachycardic or hypoxic or tachypneic. Impression Primary Impression: COVID-19 Disposition: 01 HOME, SELF-CARE Condition: Stable Departure-Patient Inst. Decision time for Depature: 18:59 Referrals: [facility] [place]) Primary Care Physician Patient Instructions: COVID-19 ED Add. Discharge Instructions: 1. Tylenol and ibuprofen for pain and fever control. Get a hold of a pulse oximeter at home and if your oxygen drops below 90% return to the emergency room or if you have significantly worsening symptoms such as shortness of breath. Otherwise expect to get a bit worse before you get better. This will take about 2 weeks to recover from. All discharge instructions reviewed with patient and/or family. Voiced understanding. GEOVANNA RIVERS ADVERTISING SALES CONSULTANT Nov 19, 2020 17:56
[2020-11-19 18:10] LABS: BASOPHILS % (AUTO) 0 % (0-10); EOSINOPHILS # (AUTO) 0.1 10^3/uL (0.0-0.3); EOSINOPHILS % (AUTO) 1 % (0-10); HEMATOCRIT 37 % (35-52); HEMOGLOBIN 11.5 g/dL (11.5-16.0); LYMPHOCYTES # (AUTO) 0.8 10^3/uL (1.0-4.0); LYMPHOCYTES % (AUTO) 13 % (12-44); MEAN CORPUSCULAR HEMOGLOBIN 27 pg (25-34); MEAN CORPUSCULAR HGB CONC 31 g/dL (32-36); MEAN CORPUSCULAR VOLUME 85 fL (80-99); MEAN PLATELET VOLUME 9.2 fL (9.0-12.2); MONOCYTES % (AUTO) 15 % (0-12); NEUTROPHILS # (AUTO) 4.6 10^3/uL (1.8-7.8); NEUTROPHILS % (AUTO) 71 % (42-75); PLATELET COUNT 290 10^3/uL (130-400); WHITE BLOOD COUNT 6.4 10^3/uL (4.3-11.0)
[2020-11-19] MEDS ORDERED: IBUPROFEN 800 MG (MOTRIN) TAB PO ONE (18:15)
[2020-11-19] MEDS ORDERED: ACETAMINOPHEN 325 MG TABLET PO ONE (18:15)
[2020-11-19 18:25] LABS: ALBUMIN 3.9 GM/DL (3.2-4.5); CHLORIDE 106 MMOL/L (98-107); POTASSIUM 3.5 MMOL/L (3.6-5.0); SODIUM 141 MMOL/L (135-145)
[2020-11-19 18:26] LABS: CALCIUM 8.7 MG/DL (8.5-10.1)
[2020-11-19 18:27] LABS: GLUCOSE 92 MG/DL (70-105)
[2020-11-19 18:28] LABS: TOTAL PROTEIN 8.1 GM/DL (6.4-8.2)
[2020-11-19 18:29] LABS: BILIRUBIN,TOTAL 0.4 MG/DL (0.1-1.0); CARBON DIOXIDE 22 MMOL/L (21-32)
[2020-11-19 18:31] LABS: ALKALINE PHOSPHATASE 79 U/L (40-136); CREATININE SERUM 0.77 MG/DL (0.60-1.30); GFR ESTIMATED > 60
[2020-11-19 18:32] LABS: BUN/CREATININE RATIO 8
[2020-11-19 18:34] LABS: ALANINE AMINOTRANSFERASE 24 U/L (0-55)
--- NOTE | 2020-11-19 19:08 | Diagnostic Imaging Report ---
INDICATION: Shortness of air. COVID positive. EXAMINATION: Chest 11/19/2020 COMPARISON: 02/24/2020, 12/14/2016 Single view chest FINDINGS: The cardiomediastinal silhouette is unremarkable. The pulmonary vasculature is within normal limits. The lungs and pleural spaces are clear. IMPRESSION: No evidence of an acute cardiopulmonary process. Dictated by: Dictated on workstation # [id number]
[2020-11-19 19:15] VITALS: BP 142/99
== END 2020-11-19 19:10 | disposition home or self-care (01) ==
LOC: EDUNIT# 17:17 → ER 17:20
DX: U07.1 COVID-19 (principal); J45.909 Unspecified asthma, uncomplicated; I10 Essential (primary) hypertension; E11.9 Type 2 diabetes mellitus without complications; Z87.891 Personal history of nicotine dependence
CPT/HCPCS: 36415; 71045; 80053; 84145; 85025; 86141

== ENCOUNTER 2021-08-23 19:46 | Emergency (ER) | payer SELFPAY ==
[~2021-08-23] VITALS: Ht 160 cm; Wt 113.4 kg
[~2021-08-23 19:46] MED LIST changes: +CLIN-144 PO; -CLIN300C12 PO; +CYCL10TA25 PO; -PHEN15CA PO; +PHEN15CA6 PO
[2021-08-23 20:00] VITALS: BP 148/92
--- NOTE | 2021-08-23 20:05 | ED Lower Extremity ---
General Stated Complaint: R KNEE HURTS Source: patient Exam Limitations: no limitations (GEOVANNA RIVERS APRN) History of Present Illness Date Seen by Provider: Aug 23, 2021 Time Seen by Provider: 20:04 Initial Comments left knee pain since yesterday when her grandmother fell causing her to twist with her weight on this leg. Onset: yesterday Severity: moderate Pain/Injury Location: left knee Method of Injury: fell Modifying Factors: Worse With Movement (GEOVANNA RIVERS APRN) Allergies and Home Medications Allergies Coded Allergies: guaifenesin (Verified Allergy, Intermediate, ANAPHYLAXIS, 03/28/12) Iodinated Contrast- Oral and IV Dye (Unverified Allergy, Mild, 11/11/11) amoxicillin (Verified Allergy, Mild, RASH-VOMITTING, 05/09/11) hydrocodone (Verified Allergy, Mild, RASH-VOMITTING, 05/09/11) Metronidazole HCl (Verified Allergy, Unknown, 12/23/13) codeine (Unverified Allergy, Unknown, 12/28/14) ketorolac (Unverified Allergy, Unknown, 05/19/18) ketorolac tromethamine (Verified Allergy, Unknown, 12/23/13) levofloxacin (Unverified Allergy, Unknown, 12/23/13) metronidazole (Verified Allergy, Unknown, 12/23/13) Uncoded Allergies: Catfish (Allergy, Intermediate, 12/28/14) Shortness of air Shell fish (Allergy, Unknown, 12/28/14) Patient Home Medication List Home Medication List Reviewed: Yes (GEOVANNA RIVERS APRN) Cephalexin (Cephalexin) 500 Mg Tablet, 500 MG PO QID Prescribed by: GEOVANNA RIVERS on 04/15/190 Clindamycin HCl (Clindamycin HCl) 300 Mg Capsule, 300 MG PO QID Prescribed by: GEOVANNA RIVERS on 12/25/18 1715 Meclizine HCl (Meclizine HCl) 25 Mg Tab.chew, Unknown Dose PO, (Reported) Entered as Reported by: PRICILLA RUSSELL on 08/21/18 0018 Ondansetron (Ondansetron Odt) 4 Mg Tab.rapdis, 4 MG PO Q6H PRN for NAUSEA/VOMITING Prescribed by: GEOVANNA RIVERS on 06/01/19 1152 Ondansetron (Ondansetron Odt) 8 Mg Tab.rapdis, 8 MG PO Q6H PRN for NAUSEA/VOMITING Prescribed by: GEOVANNA RIVERS on 09/25/20 1704 Sertraline HCl (Sertraline HCl) 25 Mg Tablet, Unknown Dose PO, (Reported) Entered as Reported by: PRICILLA RUSSELL on 08/21/18 0018 Tramadol HCl (Tramadol HCl) 50 Mg Tablet, 50 MG PO Q6H PRN for PAIN Prescribed by: MOSES KATZ on 12/17/18 0922 Review of Systems Constitutional: see HPI EENTM: see HPI Respiratory: no symptoms reported Cardiovascular: no symptoms reported Genitourinary: no symptoms reported Musculoskeletal: see HPI Skin: no symptoms reported Psychiatric/Neurological: No Symptoms Reported (GEOVANNA RIVERS APRN) Past Wmmavih-Dxdtxt-Hryxhm Hx Immunizations Up To Date Tetanus Booster (TDap): Unknown PED Vaccines UTD: Yes (GEOVANNA RIVERS APRN) Seasonal Allergies Seasonal Allergies: No (GEOVANNA IRVERS APRN) Past Medical History Surgeries: Yes ("CYST" REMOVED FROM NECK AND LEFT ARM, R KNEE) Gallbladder, Orthopedic, Tubal Ligation Respiratory: Yes Asthma Cardiac: Yes Hypertension Neurological: Yes Headaches /Migraines, Neuropathy, Vertigo 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 Disorders: No Female 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 Disorders: 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 Sexually Transmitted Disease: No Genitourinary: No Gastrointestinal: No Musculoskeletal: Yes Fractures Endocrine: Yes ("borderline diabetic") Diabetes, Non-Insulin dep HEENT: Yes Chronic Ear Infection Hearing Impairment: Hard of Hearing Cancer: No Psychosocial: Yes (OCD) ADD/ADHD, Anxiety, PTSD, Bipolar, Depression Integumentary: No Recent Skin Changes Blood Disorders: No Adverse Reaction/Blood Tranf: No (GEOVANNA RIVERS APRN) Family Medical History No Pertinent Family Hx, Cancer, Diabetes, Hypertension (GEOVANNA RIVERS APRN) Physical Exam Vital Signs Vital Signs - First Documented 08/23/21 20:00 Temp 36.4 Pulse 90 Resp 18 B/P (MAP) 148/92 (110) Pulse Ox 97 O2 Delivery Room Air (LYNETTE BOBBY DO) Vital Signs Capillary Refill : (GEOVANNA RIVERS APRN) Height, Weight, BMI Height: 5'3.00" Weight: 220lbs. 0.0oz. 99.608622fx; 44.00 BMI Method:Stated General Appearance: WD/WN, no apparent distress HEENT: PERRL/EOMI, normal ENT inspection Neck: non-tender, full range of motion Respiratory: no respiratory distress, no accessory muscle use Hips: bilateral hip non-tender, bilateral hip normal inspection, bilateral hip normal range of motion Legs: bilateral leg non-tender, bilateral leg normal inspection, bilateral leg normal range of motion Knees: bilateral knee non-tender, bilateral knee normal inspection, bilateral knee normal range of motion Ankles: bilateral ankle non-tender, bilateral ankle normal inspection, bilateral ankle normal range of motion Feet: bilateral foot non-tender, bilateral foot normal inspection, bilateral foot normal range of motion Neurologic/Psychiatric: alert, normal mood/affect, oriented x 3 Skin: normal color, warm/dry (GEOVANNA RIVERS APRN) Procedures/Interventions Suture Size: 4-0 (GEOVANNA RIVERS APRN) Progress/Results/Core Measures Results/Orders Medications Given in ED Current Medications Medications Dose Ordered Sig/Felisha Route Start Time Stop Time Status Last Admin Dose Admin Ibuprofen 800 mg ONCE ONCE PO 08/23/21 20:15 08/23/21 20:16 DC 08/23/21 20:09 800 MG (NINOSKA BOBBYA Mayco SANTOS) Vital Signs/I&O 08/23/21 20:00 Temp 36.4 Pulse 90 Resp 18 B/P (MAP) 148/92 (110) Pulse Ox 97 O2 Delivery Room Air (NINOSKA BOBBYA Mayco DO) Departure Communication (Admissions) NAME: MARCIO GONZALES [facility] REC#: [id number] PT STATUS: REG ER : 1985 PHYSICIAN: GEOVANNA RIVERS APRN ADMIT DATE: 08/23/21/ER Signed Date of Exam:08/23/21 KNEE, LEFT, 3 VIEWS CLINICAL HISTORY: Left knee pain. Twisting injury. COMPARISON: 01/25/2017. TECHNIQUE: 3 views of the left knee. FINDINGS: There is no acute fracture or dislocation of the left knee. Alignment is anatomic. The imaged joint spaces are preserved. IMPRESSION: 1. No acute fracture or dislocation in the left knee. Dictated by: Dictated on workstation # [id number] Dict: 08/23/212018 Trans: 08/23/212020 [facility] [id number] Interpreted by: SHAY HOWELL DO Electronically signed by: SHAY HOWELL DO 08/23/212020 (GEOVANNA RIVERS APRN) Impression Primary Impression: Internal derangement of knee Disposition: HOME, SELF-CARE Condition: Stable Departure-Patient Inst. Decision time for Depature: 20:05 (GEOVANNA RIVERS APRN) Referrals: [facility] [place] (PCP/Family) Primary Care Physician Patient Instructions: Internal Derangement of the Knee Add. Discharge Instructions: 1. tylenol and motrin for pain control. Follow up with your doctor next week for recheck. Return to Er for any worsening. If pain persists then follow up with your regular doctor to discuss an MRI. ATTENDING PHYSICIAN NOTE: I WAS PHYSICALLY PRESENT ER PHYSICIAN, BUT I WAS NOT INVOLVED IN ANY DECISION MAKING OR ANY CARE OF THIS PATIENT. (LYNETTE BOBYB DO) GEOVANNA RIVERS APRN Aug 23, 2021 20:05 LYNETTE BOBBY DO Aug 24, 2021 03:31
[2021-08-23] MEDS ORDERED: IBUPROFEN 800 MG (MOTRIN) TAB PO ONE (20:15)
--- NOTE | 2021-08-23 20:21 | Diagnostic Imaging Report ---
CLINICAL HISTORY: Left knee pain. Twisting injury. COMPARISON: 01/25/2017. TECHNIQUE: 3 views of the left knee. FINDINGS: There is no acute fracture or dislocation of the left knee. Alignment is anatomic. The imaged joint spaces are preserved. IMPRESSION: 1. No acute fracture or dislocation in the left knee. Dictated by: Dictated on workstation # [id number]
== END 2021-08-23 20:35 | disposition home or self-care (01) ==
LOC: EDUNIT# 19:46 → ER 19:51
DX: M23.92 Unspecified internal derangement of left knee (principal)
CPT/HCPCS: 73562

== ENCOUNTER 2021-12-13 05:46 | Emergency (ER) | payer SELFPAY ==
[2021-12-13 06:14] LABS: BASOPHILS % (AUTO) 0 % (0-10); EOSINOPHILS # (AUTO) 0.2 10^3/uL (0.0-0.3); EOSINOPHILS % (AUTO) 2 % (0-10); HEMATOCRIT 35 % (35-52); HEMOGLOBIN 10.8 g/dL (11.5-16.0); LYMPHOCYTES # (AUTO) 2.5 10^3/uL (1.0-4.0); LYMPHOCYTES % (AUTO) 25 % (12-44); MEAN CORPUSCULAR HEMOGLOBIN 26 pg (25-34); MEAN CORPUSCULAR HGB CONC 31 g/dL (32-36); MEAN CORPUSCULAR VOLUME 83 fL (80-99); MEAN PLATELET VOLUME 9.3 fL (9.0-12.2); MONOCYTES # (AUTO) 0.8 10^3/uL (0.0-1.0); MONOCYTES % (AUTO) 7 % (0-12); NEUTROPHILS # (AUTO) 6.8 10^3/uL (1.8-7.8); NEUTROPHILS % (AUTO) 66 % (42-75); PLATELET COUNT 362 10^3/uL (130-400); WHITE BLOOD COUNT 10.3 10^3/uL (4.3-11.0)
[2021-12-13] MEDS ORDERED: PANTOPRAZOLE 40 MG (PROTONIX) VIAL IV ONE (06:15)
--- NOTE | 2021-12-13 06:15 | ED Chest Pain ---
General Chief Complaint: Chest Pain Stated Complaint: CP Nursing Triage Note: pt presents via ems. pt reports CP that woke her up around 0400. reports the pain radiates to her left arm. pain is reproduceable with palpation. 4ASA and 1 nitro given by ems, pt reports these medications made her pain worse. Source: patient Exam Limitations: no limitations History of Present Illness Date Seen by Provider: Dec 13, 2021 Time Seen by Provider: 05:50 Initial Comments Here with report of central chest pain that radiated to her left shoulder and arm and left side. Onset at 4 AM. Reports pain is sharp. EMS was called and brought her here. They did give 4 baby aspirin and 1 nitroglycerin which she reports made the pain a little worse. Denies ever having anything like this before. Denies shortness of breath, weakness, diaphoresis or vomiting. 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 Associated Symptoms: No abdominal pain, No back pain, No diaphoresis, No edema, No fever/chills, No nausea/vomiting, No shortness of breath, No weakness Allergies and Home Medications Allergies Coded Allergies: guaifenesin (Verified Allergy, Intermediate, ANAPHYLAXIS, 03/28/12) Iodinated Contrast- Oral and IV Dye (Unverified Allergy, Mild, 11/11/11) amoxicillin (Verified Allergy, Mild, RASH-VOMITTING, 05/09/11) hydrocodone (Verified Allergy, Mild, RASH-VOMITTING, 05/09/11) Metronidazole HCl (Verified Allergy, Unknown, 12/23/13) codeine (Unverified Allergy, Unknown, 12/28/14) ketorolac (Unverified Allergy, Unknown, 05/19/18) ketorolac tromethamine (Verified Allergy, Unknown, 12/23/13) levofloxacin (Unverified Allergy, Unknown, 12/23/13) metronidazole (Verified Allergy, Unknown, 12/23/13) Uncoded Allergies: Catfish (Allergy, Intermediate, 12/28/14) Shortness of air Shell fish (Allergy, Unknown, 12/28/14) Patient Home Medication List Home Medication List Reviewed: Yes Cephalexin (Cephalexin) 500 Mg Tablet, 500 MG PO QID Prescribed by: GEOVANNA RIVERS on 04/15/19 2130 Clindamycin HCl (Clindamycin HCl) 300 Mg Capsule, 300 MG PO QID Prescribed by: GEOVANNA RIVERS on 12/25/18 1715 Meclizine HCl (Meclizine HCl) 25 Mg Tab.chew, Unknown Dose PO, (Reported) Entered as Reported by: PRICILLA RUSSELL on 08/21/18 0018 Ondansetron (Ondansetron Odt) 4 Mg Tab.rapdis, 4 MG PO Q6H PRN for NAUSEA/VOMITING Prescribed by: GEOVANNA RIVERS on 06/01/19 1152 Ondansetron (Ondansetron Odt) 8 Mg Tab.rapdis, 8 MG PO Q6H PRN for NAUSEA/VOMITING Prescribed by: GEOVANNA RIVERS on 09/25/20 1704 Sertraline HCl (Sertraline HCl) 25 Mg Tablet, Unknown Dose PO, (Reported) Entered as Reported by: PRICILLA RUSSELL on 08/21/1817 Tramadol HCl (Tramadol HCl) 50 Mg Tablet, 50 MG PO Q6H PRN for PAIN Prescribed by: MOSES KATZ on 12/17/18 0922 Review of Systems Review of Systems Constitutional: see HPI; No chills, No fever EENTM: No Nose Congestion, No Throat Pain Respiratory: Denies Cough, Denies Shortness of Air Cardiovascular: Chest Pain; Denies Edema, Denies Palpitations Gastrointestinal: Denies Nausea, Denies Vomiting Genitourinary: No Symptoms Reported Musculoskeletal: No back pain, No muscle pain Skin: No change in color, No lesions Psychiatric/Neurological: No Symptoms Reported All Other Systems Reviewed Negative Unless Noted: Yes Past Uschkqy-Jqqysh-Diavds Hx Patient Social History Tobacco Use?: Yes Smoking Status: Current Someday Smoker Substance use?: No Alcohol Use?: No Pt feels they are or have been: No Immunizations Up To Date Tetanus Booster (TDap): Unknown PED Vaccines UTD: Yes Influenza Vaccine Up-to-Date: No; Not Current First/Initial COVID19 Vaccinat: unknown date Second COVID19 Vaccination Preet: unknown date COVID19 Vaccine Jail Officer: Movidiusa Seasonal Allergies Seasonal Allergies: No Past Medical History Surgeries: Yes ("CYST" REMOVED FROM NECK AND LEFT ARM, R KNEE) Gallbladder, Orthopedic, Tubal Ligation Respiratory: Yes Asthma Cardiac: Yes Hypertension Neurological: Yes Headaches /Migraines, Neuropathy, Vertigo 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 Disorders: No Female 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 Disorders: Denies 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 Sexually Transmitted Disease: No Genitourinary: No Gastrointestinal: No Musculoskeletal: Yes Fractures Endocrine: Yes ("borderline diabetic") Diabetes, Non-Insulin dep HEENT: Yes Chronic Ear Infection Hearing Impairment: Hard of Hearing Cancer: No Psychosocial: Yes (OCD) ADD/ADHD, Anxiety, PTSD, Bipolar, Depression Integumentary: No Recent Skin Changes Blood Disorders: No Adverse Reaction/Blood Tranf: No Family Medical History Reviewed Nursing Family Hx No Pertinent Family Hx, Cancer, Diabetes, Hypertension Physical Exam Vital Signs Vital Signs - First Documented 12/13/21 06:02 Temp 36.5 Pulse 80 Resp 18 B/P (MAP) 153/96 (115) Pulse Ox 98 O2 Delivery Room Air Capillary Refill : Height, Weight, BMI Height: 5'3.00" Weight: 220lbs. 0.0oz. 99.173688ha; 44.00 BMI Method:Stated General Appearance: No Apparent Distress, WD/WN HEENT: PERRL/EOMI, Pharynx Normal Neck: Non Tender, Supple Respiratory: Lungs Clear, Normal Breath Sounds Cardiovascular: Regular Rate, Rhythm, No Murmur Gastrointestinal: Non Tender, Soft Extremity: Normal Inspection, Normal Range of Motion, Non Tender, No Calf Tenderness, No Pedal Edema Neurologic/Psychiatric: Alert, Oriented x3 Skin: Normal Color, Warm/Dry Procedures/Interventions Suture Size: 4-0 Progress/Results/Core Measures Results/Orders Lab Results Laboratory Tests Test 12/13/21 06:11 12/13/21 08:13 Range/Units White Blood Count 10.3 4.3-11.0 10^3/uL Red Blood Count 4.18 3.80-5.11 10^6/uL Hemoglobin 10.8 L 11.5-16.0 g/dL Hematocrit 35 35-52 % Mean Corpuscular Volume 83 80-99 fL Mean Corpuscular Hemoglobin 26 25-34 pg Mean Corpuscular Hemoglobin Concent 31 L 32-36 g/dL Red Cell Distribution Width 14.8 H 10.0-14.5 % Platelet Count 362 130-400 10^3/uL Mean Platelet Volume 9.3 9.0-12.2 fL Immature Granulocyte % (Auto) 0 % Neutrophils (%) (Auto) 66 42-75 % Lymphocytes (%) (Auto) 25 12-44 % Monocytes (%) (Auto) 7 0-12 % Eosinophils (%) (Auto) 2 0-10 % Basophils (%) (Auto) 0 0-10 % Neutrophils # (Auto) 6.8 1.8-7.8 10^3/uL Lymphocytes # (Auto) 2.5 1.0-4.0 10^3/uL Monocytes # (Auto) 0.8 0.0-1.0 10^3/uL Eosinophils # (Auto) 0.2 0.0-0.3 10^3/uL Basophils # (Auto) 0.0 0.0-0.1 10^3/uL Immature Granulocyte # (Auto) 0.0 0.0-0.1 10^3/uL Prothrombin Time 13.4 12.2-14.7 SEC INR Comment 1.0 0.8-1.4 Activated Partial Thromboplast Time 28 24-35 SEC Sodium Level 140 135-145 MMOL/L Potassium Level 4.0 3.6-5.0 MMOL/L Chloride Level 107 98-107 MMOL/L Carbon Dioxide Level 22 21-32 MMOL/L Anion Gap 11 5-14 MMOL/L Blood Urea Nitrogen 9 7-18 MG/DL Creatinine 0.76 0.60-1.30 MG/DL Estimat Glomerular Filtration Rate 103 BUN/Creatinine Ratio 12 Glucose Level 110 H 70-105 MG/DL Calcium Level 9.0 8.5-10.1 MG/DL Corrected Calcium 9.2 8.5-10.1 MG/DL Magnesium Level 2.2 1.6-2.4 MG/DL Total Bilirubin 0.5 0.1-1.0 MG/DL Aspartate Amino Transf (AST/SGOT) 17 5-34 U/L Alanine Aminotransferase (ALT/SGPT) 18 0-55 U/L Alkaline Phosphatase 84 40-136 U/L Myoglobin 30.6 10.0-92.0 NG/ML Troponin I < 0.028 < 0.028 <0.028 NG/ML Total Protein 7.4 6.4-8.2 GM/DL Albumin 3.7 3.2-4.5 GM/DL My Orders Orders - MOSES KATZ MD Cbc With Automated Diff (12/13/21 06:02) Magnesium (12/13/21 06:02) Chest 1 View, Ap/Pa Only (12/13/21 06:02) Comprehensive Metabolic Panel (12/13/21 06:02) Myoglobin Serum (12/13/21 06:02) Protime With Inr (12/13/21 06:02) Partial Thromboplastin Time (12/13/21 06:02) O2 (12/13/21 06:02) Monitor-Rhythm Ecg Trace Only (12/13/21 06:02) Lipid Panel (12/14/21 06:00) Ed Iv/Invasive Line Start (12/13/21 06:02) Troponin I Tg (12/13/21 06:02) Pantoprazole Injection (Protonix Injecti (12/13/21 06:15) Morphine Injection (Morphine Injection (12/13/21 08:00) Troponin I Bartholomew (12/13/21 07:53) Metoprolol Tartrate (Ir) Tab (Lopressor (12/13/21 08:00) Medications Given in ED Current Medications Medications Dose Ordered Sig/Felisha Route Start Time Stop Time Status Last Admin Dose Admin Metoprolol Tartrate 50 mg ONCE ONCE PO 12/13/21 08:00 12/13/21 08:01 DC 12/13/21 08:10 50 MG Morphine Sulfate 2 mg ONCE ONCE IVP 12/13/21 08:00 12/13/21 08:01 DC 12/13/21 08:11 2 MG Pantoprazole 40 mg ONCE ONCE IV 12/13/21 06:15 12/13/21 06:16 DC 12/13/21 06:15 40 MG Vital Signs/I&O 12/13/21 12/13/21 12/13/21 06:02 06:13 06:32 Temp 36.5 Pulse 80 76 Resp 18 18 B/P (MAP) 153/96 (115) 160/102 Pulse Ox 98 97 97 O2 Delivery Room Air Room Air Room Air Blood Pressure Mean: 115 Progress Progress Note : Progress Note Seen and evaluated. IV, labs, EKG and chest x-ray ordered. Protonix 40 mg IV ordered. Monitor patient. 0750: Patient still having some pain. Initial evaluation is negative. We will repeat troponin. Blood pressure is noted to be elevated. Metoprolol 50 mg p.o. ordered. Morphine 2 mg IV. Monitor patient. 0915: Patient has appointment with her doctor at 10:40 AM today. Blood pressure improved to 150/100. She states her pain is improved. Repeat troponin negative. I believe this is more component of reflux and not cardiac but she does have the hypertension. We did discuss prescription but since she has appoint with her doctor, I will have her follow-up there to decide on prescription and then they can send it through the clinic pharmacy. She was in full agreement with that. Discharged home with return precautions. Patient verbalized understanding of instructions and agreement with plan. Initial ECG Impression Date: Dec 13, 2021 Initial ECG Impression Time: 06:00 Initial ECG Rate: 80 Initial ECG Rhythm: Normal Sinus Comment Sinus rhythm with normal axis. No evidence of ST elevation ID. Probable left ventricular hypertrophy and left atrial enlargement noted. Similar to previous of 07/16/2015. Interpreted by me. Diagnostic Imaging Diagonstic Imaging: Xray Plain Films/CT/US/NM/MRI: chest Comments [facility], [place] NAME: MARCIO GONZALES [facility] REC#: [id number] PT STATUS: REG ER : 1985 PHYSICIAN: MOSES KATZ MD ADMIT DATE: 12/13/21/ER Signed Date of Exam:12/13/21 CHEST 1 VIEW, AP/PA ONLY EXAMINATION: Chest 1 view HISTORY: Chest pain. COMPARISON: 11/19/2020. FINDINGS: The lung volumes are normal. No focal consolidation is seen. No large pleural effusion or pneumothorax is seen. The cardiomediastinal silhouette is normal in size and contour. No acute osseous abnormality is seen. IMPRESSION: 1. No acute pleuroparenchymal process. Dictated by: Dictated on workstation # [id number] Dict: 12/13/2140 Trans: 12/13/2147 [facility] [id number] Interpreted by: SHAY HOWELL DO Electronically signed by: SHAY HOWELL DO 12/13/21 0747 Departure Impression Primary Impression: Chest pain Qualified Codes: R07.9 - Chest pain, unspecified Additional Impressions: Hypertension, uncontrolled Esophageal reflux Qualified Codes: K21.9 - Gastro-esophageal reflux disease without esophagitis Disposition: HOME, SELF-CARE Condition: Improved Departure-Patient Inst. Decision time for Depature: 09:17 Referrals: [facility] (PCP/Family) Primary Care Physician Patient Instructions: Chest Pain (DC), Acid Reflux and Gastroesophageal Reflux Disease in Adults, High Blood Pressure in Adults Add. Discharge Instructions: All discharge instructions reviewed with patient and/or family. Voiced under standing. Follow-up with your doctor today as scheduled. Discussed with your doctor regarding both reflux concerns and high blood pressure as well as for further evaluation related to your heart. Your heart enzymes are negative today. You should consider initiating [id number] omeprazole 20 mg daily for the next 2 weeks and you may continue this for up to 6 weeks. Talk with your doctor about this as well. Return for worse pain, fever, vomiting, weakness, breathing problems or other concerns as needed. Copy Copies To 1: EDMAR OROZCO TIMOTHY D MD Dec 13, 2021 06:15
[2021-12-13 06:18] LABS: ALBUMIN 3.7 GM/DL (3.2-4.5)
[2021-12-13 06:21] LABS: TOTAL PROTEIN 7.4 GM/DL (6.4-8.2)
[2021-12-13 06:23] LABS: BILIRUBIN,TOTAL 0.5 MG/DL (0.1-1.0)
[2021-12-13 06:25] LABS: CREATININE SERUM 0.76 MG/DL (0.60-1.30)
[2021-12-13 06:28] LABS: MAGNESIUM 2.2 MG/DL (1.6-2.4); PROTHROMBIN TIME PATIENT 13.4 SEC (12.2-14.7)
--- NOTE | 2021-12-13 07:44 | Diagnostic Imaging Report ---
EXAMINATION: Chest 1 view HISTORY: Chest pain. COMPARISON: 11/19/2020. FINDINGS: The lung volumes are normal. No focal consolidation is seen. No large pleural effusion or pneumothorax is seen. The cardiomediastinal silhouette is normal in size and contour. No acute osseous abnormality is seen. IMPRESSION: 1. No acute pleuroparenchymal process. Dictated by: Dictated on workstation # [id number]
[2021-12-13] MEDS ORDERED: morphine INJ 10 MG/ML 1ML (SYR OR VIAL) IVP ONE (08:00)
[2021-12-13] MEDS ORDERED: meTOprolol TARTRATE 50 MG (LOPRESSOR) TAB PO ONE (08:00)
[2021-12-13 09:34] VITALS: BP 150/109
== END 2021-12-13 09:34 | disposition home or self-care (01) ==
LOC: EDUNIT# 05:46 → ER 05:48
DX: I10 Essential (primary) hypertension (principal); K21.9 Gastro-esophageal reflux disease without esophagitis; F17.200 Nicotine dependence, unspecified, uncomplicated
CPT/HCPCS: 36415; 71045; 80053; 83735; 83874; 84484; 85025; 85610; 85730; 93005; 93041

== ENCOUNTER 2022-01-23 19:35 | Emergency (ER) | payer SELFPAY ==
[~2022-01-23] VITALS: Ht 160 cm; Wt 113.0 kg
--- NOTE | 2022-01-23 20:31 | ED GU-Female ---
General Chief Complaint: - 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 Stated Complaint: HEAVY MENSES Nursing Triage Note: states she started her period last sunday and has not stopped has had increased bleeding went to [facility] was given medication to help slow it down and is still using 10 tampons in 24 hours. Source: patient Exam Limitations: no limitations History of Present Illness Date Seen by Provider: Jan 23, 2022 Time Seen by Provider: 20:31 Allergies and Home Medications Allergies Coded Allergies: guaifenesin (Verified Allergy, Intermediate, ANAPHYLAXIS, 03/28/12) Iodinated Contrast- Oral and IV Dye (Unverified Allergy, Mild, 11/11/11) amoxicillin (Verified Allergy, Mild, RASH-VOMITTING, 05/09/11) hydrocodone (Verified Allergy, Mild, RASH-VOMITTING, 05/09/11) Metronidazole HCl (Verified Allergy, Unknown, 12/23/13) codeine (Unverified Allergy, Unknown, 12/28/14) ketorolac (Unverified Allergy, Unknown, 05/19/18) ketorolac tromethamine (Verified Allergy, Unknown, 12/23/13) levofloxacin (Unverified Allergy, Unknown, 12/23/13) metronidazole (Verified Allergy, Unknown, 12/23/13) Uncoded Allergies: Catfish (Allergy, Intermediate, 12/28/14) Shortness of air Shell fish (Allergy, Unknown, 12/28/14) Patient Home Medication List Cephalexin (Cephalexin) 500 Mg Tablet, 500 MG PO QID Prescribed by: GEOVANNA RIVERS on 04/15/19 2130 Clindamycin HCl (Clindamycin HCl) 300 Mg Capsule, 300 MG PO QID Prescribed by: GEOVANNA RIVERS on 12/25/18 1715 Meclizine HCl (Meclizine HCl) 25 Mg Tab.chew, Unknown Dose PO, (Reported) Entered as Reported by: PRICILLA RUSSELL on 08/21/18 0018 Ondansetron (Ondansetron Odt) 4 Mg Tab.rapdis, 4 MG PO Q6H PRN for NAUSEA/VOMITING Prescribed by: GEOVANNA RIVERS on 06/01/19 1152 Ondansetron (Ondansetron Odt) 8 Mg Tab.rapdis, 8 MG PO Q6H PRN for NAUSEA/VOMITING Prescribed by: GEOVANNA RIVERS on 09/25/20 1704 Sertraline HCl (Sertraline HCl) 25 Mg Tablet, Unknown Dose PO, (Reported) Entered as Reported by: PRICILLA RUSSELL on 08/21/18 0018 Tramadol HCl (Tramadol HCl) 50 Mg Tablet, 50 MG PO Q6H PRN for PAIN Prescribed by: MOSES KATZ on 12/17/18 09 Past Kzctexw-Kgezai-Lkjxan Hx Patient Social History Tobacco Use?: No Use of E-Cig and/or Vaping dev: No Substance use?: No Alcohol Use?: No Pt feels they are or have been: No Immunizations Up To Date Tetanus Booster (TDap): Unknown PED Vaccines UTD: Yes First/Initial COVID19 Vaccinat: 2020 Second COVID19 Vaccination Preet: 2020 Seasonal Allergies Seasonal Allergies: No Past Medical History Surgeries: Yes ("CYST" REMOVED FROM NECK AND LEFT ARM, R KNEE) Gallbladder, Orthopedic, Tubal Ligation Respiratory: Yes Asthma Cardiac: Yes Hypertension Neurological: Yes Headaches /Migraines, Neuropathy, Vertigo Last Menstrual Period: Jan 16, 2022 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 Disorders: No Female 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 Disorders: 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 Sexually Transmitted Disease: No Genitourinary: No Gastrointestinal: No Musculoskeletal: Yes Fractures Endocrine: Yes ("borderline diabetic") Diabetes, Non-Insulin dep HEENT: Yes Chronic Ear Infection Hearing Impairment: Hard of Hearing Cancer: No Psychosocial: Yes (OCD) ADD/ADHD, Anxiety, PTSD, Bipolar, Depression Integumentary: No Recent Skin Changes Blood Disorders: No Adverse Reaction/Blood Tranf: No Family Medical History No Pertinent Family Hx, Cancer, Diabetes, Hypertension Physical Exam Vital Signs Vital Signs - First Documented 01/23/22 19:35 Temp 36.6 Pulse 86 Resp 18 B/P (MAP) 166/106 (126) Pulse Ox 98 O2 Delivery Room Air Capillary Refill : Less Than 3 Seconds Height, Weight, BMI Height: 5'3.00" Weight: 220lbs. 0.0oz. 99.081287sd; 44.00 BMI Method:Stated Procedures/Interventions Suture Size: 4-0 Progress/Results/Core Measures Suspected Sepsis SIRS Temperature: Pulse: 86 Respiratory Rate: 18 Laboratory Tests 01/23/22 20:29: White Blood Count 16.6H Blood Pressure 166 /106 Mean: 126 Laboratory Tests 01/23/22 20:29: Creatinine 0.81, Platelet Count 400, Total Bilirubin 0.2 Results/Orders Lab Results Laboratory Tests Test 01/23/22 20:05 01/23/22 20:29 01/23/22 20:55 Range/Units Urine Color YELLOW Urine Clarity CLOUDY Urine pH 5.5 5-9 Urine Specific [place] >=1.030 1.016-1.022 Urine Protein 1+ H NEGATIVE Urine Glucose (UA) NEGATIVE NEGATIVE Urine Ketones 1+ H NEGATIVE Urine Nitrite NEGATIVE NEGATIVE Urine Bilirubin 1+ H NEGATIVE Urine Urobilinogen 0.2 < = 1.0 MG/DL Urine Leukocyte Esterase NEGATIVE NEGATIVE Urine RBC (Auto) 3+ H NEGATIVE Urine RBC NONE /HPF Urine WBC 2-5 /HPF Urine Squamous Epithelial Cells NONE /HPF Urine Renal Epithelial Cells NONE /HPF Urine Crystals NONE /LPF Urine Bacteria LARGE H /HPF Urine Casts NONE /LPF Urine Mucus LARGE H /LPF Urine Culture Indicated YES White Blood Count 16.6 H 4.3-11.0 10^3/uL Red Blood Count 4.23 3.80-5.11 10^6/uL Hemoglobin 11.0 L 11.5-16.0 g/dL Hematocrit 34 L 35-52 % Mean Corpuscular Volume 81 80-99 fL Mean Corpuscular Hemoglobin 26 25-34 pg Mean Corpuscular Hemoglobin Concent 32 32-36 g/dL Red Cell Distribution Width 14.3 10.0-14.5 % Platelet Count 400 130-400 10^3/uL Mean Platelet Volume 9.2 9.0-12.2 fL Immature Granulocyte % (Auto) 0 % Neutrophils (%) (Auto) 75 42-75 % Lymphocytes (%) (Auto) 17 12-44 % Monocytes (%) (Auto) 7 0-12 % Eosinophils (%) (Auto) 1 0-10 % Basophils (%) (Auto) 0 0-10 % Neutrophils # (Auto) 12.5 H 1.8-7.8 10^3/uL Lymphocytes # (Auto) 2.8 1.0-4.0 10^3/uL Monocytes # (Auto) 1.2 H 0.0-1.0 10^3/uL Eosinophils # (Auto) 0.1 0.0-0.3 10^3/uL Basophils # (Auto) 0.1 0.0-0.1 10^3/uL Immature Granulocyte # (Auto) 0.1 0.0-0.1 10^3/uL Neutrophils % (Manual) 78 % Lymphocytes % (Manual) 13 % Monocytes % (Manual) 7 % Eosinophils % (Manual) 2 % Blood Morphology Comment NORMAL Sodium Level 138 135-145 MMOL/L Potassium Level 3.7 3.6-5.0 MMOL/L Chloride Level 107 98-107 MMOL/L Carbon Dioxide Level 19 L 21-32 MMOL/L Anion Gap 12 5-14 MMOL/L Blood Urea Nitrogen 9 7-18 MG/DL Creatinine 0.81 0.60-1.30 MG/DL Estimat Glomerular Filtration Rate 96 BUN/Creatinine Ratio 11 Glucose Level 109 H 70-105 MG/DL Calcium Level 9.0 8.5-10.1 MG/DL Corrected Calcium 9.1 8.5-10.1 MG/DL Total Bilirubin 0.2 0.1-1.0 MG/DL Aspartate Amino Transf (AST/SGOT) 14 5-34 U/L Alanine Aminotransferase (ALT/SGPT) 13 0-55 U/L Alkaline Phosphatase 92 40-136 U/L Total Protein 8.0 6.4-8.2 GM/DL Albumin 3.9 3.2-4.5 GM/DL Thyroid Stimulating Hormone (TSH) 1.83 0.35-4.94 UIU/ML Serum Test, Qualitative NEGATIVE NEGATIVE My Orders Orders - JAYDEN DELGADO APRN Ed Iv/Invasive Line Start (01/23/22 20:30) Cbc With Automated Diff (01/23/22 20:30) Comprehensive Metabolic Panel (01/23/22 20:30) Manual Differential (01/23/22 20:29) Hcg,Qualitative Serum (01/23/22 20:58) Thyroid Stimulating Hormone (01/23/22 21:08) Ct Abdomen/Pelvis Wo (01/23/22 21:30) Ondansetron Injection (Zofran Injectio (01/23/22 21:45) Ua Culture If Indicated (01/23/22 22:42) Urine Culture (01/23/22 20:05) Genital Culture (01/23/22 23:07) Neis Robert Dna Urine Test (01/23/22 23:07) Chlamydia Trachomatis Urine (01/23/22 23:07) Ceftriaxone 1 Gm Pre-Mix (Rocephin 1 Gm (01/23/22 23:30) Doxycycline Hyclate Tablet (Vibramycin T (01/23/22 23:30) Ketorolac Injection (Toradol Injection) (01/23/22 23:45) Medications Given in ED Current Medications Medications Dose Ordered Sig/Felisha Route Start Time Stop Time Status Last Admin Dose Admin Ondansetron HCl 4 mg ONCE ONCE IVP 01/23/22 21:45 01/23/22 21:46 DC 01/23/22 21:54 4 MG Vital Signs/I&O 01/23/22 19:35 Temp 36.6 Pulse 86 Resp 18 B/P (MAP) 166/106 (126) Pulse Ox 98 O2 Delivery Room Air Capillary Refill : Less Than 3 Seconds Blood Pressure Mean: 126 Departure Impression Primary Impression: PID (acute pelvic inflammatory disease) Additional Impression: Menorrhagia Disposition: HOME, SELF-CARE Condition: Improved Departure-Patient Inst. Decision time for Depature: 23:39 Referrals: [facility] (PCP/Family) Primary Care Physician Patient Instructions: Heavy Periods ED, Pelvic Inflammatory Disease ED Add. Discharge Instructions: Plan: 1. Call [facility] first thing tomorrow to schedule close follow- up either or Sunday with Jennifer dudley or with Dr. Gonzales. 2. May take ibuprofen 600 mg every 8 hours as needed for pain. 3. Take doxycycline twice a day for the next 14 days. This medication can cau se skin sensitivity and you may burn easier if you are exposed to sun for extended length of time. Make sure you wear sunblock, hat, protective clothing. 4. Take iron twice a day by mouth, separate at least 2 hours between your iron and your doxycycline as his medications together can impair the effectiveness of your doxycycline. 5. Do not insert anything into the vagina, including tampons. Use pads for vaginal bleeding, make sure you keep track of how many pads you are going through in a day. 6. Return to the ER if you experience any increasing weakness, dizziness, shortness of breath, fever, saturating a pad every hour for more than a couple hours. 7. Continue her Provera as previously directed, it may take a couple days for this medication to help decrease bleeding. 8. Return to the ER for any new, concerning, worsening symptoms. All discharge instructions reviewed with patient and/or family. Voiced understanding. Scripts Ferrous Sulfate (Iron) 325 Mg (65 Mg Iron) Tablet 325 MG PO BID for 14 Days, #28 TAB 0 Refills Prov: JAYDEN DELGADO NETWORK RELATIONS CONSULTANT 01/23/22 Doxycycline Hyclate (Doxycycline Hyclate) 100 Mg Tablet 100 MG PO BID for 14 Days, #28 TAB 0 Refills Prov: JAYDEN DELGADO NETWORK RELATIONS CONSULTANT 01/23/22 JAYDEN DELGADO NETWORK RELATIONS CONSULTANT Jan 23, 2022 20:31
[2022-01-23 20:40] LABS: BASOPHILS # (AUTO) 0.1 10^3/uL (0.0-0.1); BASOPHILS % (AUTO) 0 % (0-10); EOSINOPHILS # (AUTO) 0.1 10^3/uL (0.0-0.3); EOSINOPHILS % (AUTO) 1 % (0-10); HEMATOCRIT 34 % (35-52); LYMPHOCYTES # (AUTO) 2.8 10^3/uL (1.0-4.0); LYMPHOCYTES % (AUTO) 17 % (12-44); MEAN CORPUSCULAR HEMOGLOBIN 26 pg (25-34); MEAN CORPUSCULAR HGB CONC 32 g/dL (32-36); MEAN CORPUSCULAR VOLUME 81 fL (80-99); MEAN PLATELET VOLUME 9.2 fL (9.0-12.2); MONOCYTES # (AUTO) 1.2 10^3/uL (0.0-1.0); MONOCYTES % (AUTO) 7 % (0-12); NEUTROPHILS # (AUTO) 12.5 10^3/uL (1.8-7.8); NEUTROPHILS % (AUTO) 75 % (42-75); PLATELET COUNT 400 10^3/uL (130-400); WHITE BLOOD COUNT 16.6 10^3/uL (4.3-11.0)
[2022-01-23 20:57] LABS: ALBUMIN 3.9 GM/DL (3.2-4.5); BILIRUBIN,TOTAL 0.2 MG/DL (0.1-1.0); CREATININE SERUM 0.81 MG/DL (0.60-1.30); POTASSIUM 3.7 MMOL/L (3.6-5.0)
[2022-01-23 21:00] LABS: EOSINOPHILS % (MANUAL) 2 %; LYMPHOCYTES % (MANUAL) 13 %; MONOCYTES % (MANUAL) 7 %; NEUTROPHILS % (MANUAL) 78 %; RBC MORPH NORMAL
[2022-01-23] MEDS ORDERED: ONDANSETRON 4 MG/2 ML (SDV) Z0FRAN IVP ONE (21:45)
--- NOTE | 2022-01-23 21:55 | Diagnostic Imaging Report ---
PROCEDURE: CT abdomen and pelvis without contrast. TECHNIQUE: Multiple contiguous axial images were obtained through the abdomen and pelvis without the use of intravenous contrast. Auto Exposure Controls were utilized during the CT exam to meet ALARA standards for radiation dose reduction. DATE: January 23, 2022. COMPARISON: Abdominal radiographs July 29, 2015. CT abdomen and pelvis March 16, 2015. INDICATION: 36-year-old female, heavy vaginal bleeding. FINDINGS: There are limitations for evaluation of the abdominal organs, neoplastic processes, abscess, and limited evaluation of the vasculature relating to the lack of intravenous contrast. The visualized portions of the lung bases are clear. The heart is not enlarged. There is no pericardial effusion. The liver is unremarkable in size and contour. The gallbladder is surgically absent. There is no biliary ductal dilation. The main pancreatic duct is not grossly dilated. Limited noncontrast assessment of the pancreatic parenchyma is unremarkable. The spleen is normal in size. There is an accessory splenule on axial image 60. There is a fat-containing right adrenal mass compatible with adrenal myelolipoma measuring 6.0 x 4.1 cm in size on axial image 44. Unremarkable appearance of the renal parenchyma on noncontrast assessment. The urinary collecting systems are not distended. There is no identified renal or ureteral stone. The urinary bladder is collapsed and not well evaluated. CT assessment of the uterus and adnexa is largely unremarkable. There are surgical clips in the bilateral adnexa. The intestinal tract is not distended. There is no evidence of acute appendicitis. There is no free intraperitoneal air. There is no drainable fluid collection. There is no free fluid in the abdomen or pelvis. There is no identified abnormally enlarged lymph node in the abdomen or pelvis which meets CT size criteria for adenopathy. There is no identified acute bony abnormality. IMPRESSION: CT ABDOMEN AND PELVIS. 1. No identified acute abnormality in the abdomen or pelvis. 2. Fat-containing right adrenal mass compatible with adrenal myelolipoma measuring approximately 6.0 x 4.1 cm in size. Dictated by: Dictated on workstation # [id number]
[2022-01-23 22:49] LABS: BILIRUBIN,URINE 1+ (NEGATIVE); CLARITY,URINE CLOUDY; COLOR,URINE YELLOW; GLUCOSE, URINE (UA) NEGATIVE (NEGATIVE); KETONES,URINE 1+ (NEGATIVE); LEUKOCYTE ESTERASE ,URINE NEGATIVE (NEGATIVE); NITRITE,URINE NEGATIVE (NEGATIVE); PH,URINE 5.5 (5-9); PROTEIN,URINE 1+ (NEGATIVE)
[2022-01-23 22:51] LABS: BACTERIA,URINE LARGE /HPF
[2022-01-23] MEDS ORDERED: DOXYCYCLINE 100 MG (VIBRAMYCIN) TABLET PO ONE (23:30)
[2022-01-23] MEDS ORDERED: cefTRIAXone 1 GM PRE-MIX 50 ML IV ONE (23:30)
[2022-01-23] MEDS ORDERED: FERR-84 PO (23:40)
[2022-01-23] MEDS ORDERED: DOXY100T2 PO (23:40)
[2022-01-23] MEDS ORDERED: KETOROLAC 30 MG/ML VIAL IVP ONE (23:45)
[2022-01-23 23:47] VITALS: BP 151/95
== END 2022-01-24 00:21 | disposition home or self-care (01) ==
LOC: EDUNIT# 19:35 → ER 19:37
DX: N92.0 Excessive and frequent menstruation with regular cycle (principal); N73.9 Female pelvic inflammatory disease, unspecified; Z88.1 Allergy status to other antibiotic agents; Z32.02 Encounter for pregnancy test, result negative
CPT/HCPCS: 36415; 74176; 80053; 81000; 84443; 84703; 85007; 85027; 87070; 87088; 87205; 87491; 87591

== ENCOUNTER 2022-03-09 18:39 | Emergency (ER) | payer OTHER ==
[~2022-03-09] VITALS: Ht 160 cm; Wt 97.5 kg
[~2022-03-09 18:39] MED LIST changes: +DOXY100T2 PO; +FERR-84 PO
[2022-03-09 19:38] LABS: BASOPHILS # (AUTO) 0.1 10^3/uL (0.0-0.1); BASOPHILS % (AUTO) 0 % (0-10); EOSINOPHILS # (AUTO) 0.2 10^3/uL (0.0-0.3); EOSINOPHILS % (AUTO) 2 % (0-10); HEMATOCRIT 38 % (35-52); HEMOGLOBIN 11.6 g/dL (11.5-16.0); LYMPHOCYTES # (AUTO) 2.7 10^3/uL (1.0-4.0); LYMPHOCYTES % (AUTO) 22 % (12-44); MEAN CORPUSCULAR HEMOGLOBIN 26 pg (25-34); MEAN CORPUSCULAR HGB CONC 31 g/dL (32-36); MEAN CORPUSCULAR VOLUME 83 fL (80-99); MEAN PLATELET VOLUME 8.9 fL (9.0-12.2); MONOCYTES # (AUTO) 0.8 10^3/uL (0.0-1.0); MONOCYTES % (AUTO) 7 % (0-12); NEUTROPHILS # (AUTO) 8.5 10^3/uL (1.8-7.8); NEUTROPHILS % (AUTO) 69 % (42-75); PLATELET COUNT 464 10^3/uL (130-400); WHITE BLOOD COUNT 12.4 10^3/uL (4.3-11.0)
[2022-03-09 19:39] LABS: BILIRUBIN,URINE NEGATIVE (NEGATIVE); CLARITY,URINE CLEAR; COLOR,URINE YELLOW; GLUCOSE, URINE (UA) NEGATIVE (NEGATIVE); KETONES,URINE NEGATIVE (NEGATIVE); LEUKOCYTE ESTERASE ,URINE NEGATIVE (NEGATIVE); NITRITE,URINE NEGATIVE (NEGATIVE); PROTEIN,URINE 1+ (NEGATIVE)
[2022-03-09 19:51] LABS: ALBUMIN 3.9 GM/DL (3.2-4.5)
[2022-03-09 19:53] LABS: CALCIUM 9.1 MG/DL (8.5-10.1)
[2022-03-09 19:54] LABS: TOTAL PROTEIN 8.2 GM/DL (6.4-8.2)
[2022-03-09 19:56] LABS: BILIRUBIN,TOTAL 0.2 MG/DL (0.1-1.0)
[2022-03-09 19:58] LABS: CREATININE SERUM 0.81 MG/DL (0.60-1.30)
--- NOTE | 2022-03-09 20:00 | ED GU-Female ---
General Chief Complaint: - 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 Stated Complaint: MENSTRUATING FOR 3 WKS,NAUSEA Nursing Triage Note: PT AMB TO RM 8 WITH COMPLAINT OF PERIOD FOR 3 WEEKS. STATES SHE IS HAVING CLOTS. HAS APPT WITH DR ARNETT ON APR 04. (BRIDGET CHAUDHARY) History of Present Illness Date Seen by Provider: Mar 09, 2022 Time Seen by Provider: 18:55 Initial Comments 37-year-old female presents for approximately 3 weeks of vaginal bleeding, consistent amounts. Changing pads every 4-6 hours. Occasionally passing clots. . She was seen by her PCP and referred to Dr. Mallory who started oral contraceptives. She has taken these with no change in her symptoms. She reports passing some clots at times. She is scheduled to see Dr. Arnett to discuss hysterectomy on April 04. She denies any weakness, dizziness, nausea or vomiting. She has a history of endometriosis. Timing/Duration: intermittent Severity/Quality: mild Location: vaginal Activities at Onset: none Prior Genitourinary Problems: none Sexual [place]ham History: single partner Associated Symptoms: No abdominal pain, No dysuria, No loss of bladder control, No lower back pain, No nausea/vomiting, No urinary frequency (BRIDGET CHAUDHARY) Allergies and Home Medications Allergies Coded Allergies: guaifenesin (Verified Allergy, Intermediate, ANAPHYLAXIS, 03/28/12) Iodinated Contrast Media (Unverified Allergy, Mild, 11/11/11) amoxicillin (Verified Allergy, Mild, RASH-VOMITTING, 05/09/11) hydrocodone (Verified Allergy, Mild, RASH-VOMITTING, 05/09/11) Metronidazole HCl (Verified Allergy, Unknown, 12/23/13) codeine (Unverified Allergy, Unknown, 12/28/14) levofloxacin (Unverified Allergy, Unknown, 12/23/13) metronidazole (Verified Allergy, Unknown, 12/23/13) Uncoded Allergies: Catfish (Allergy, Intermediate, 12/28/14) Shortness of air Shell fish (Allergy, Unknown, 12/28/14) Patient Home Medication List Home Medication List Reviewed: Yes (BRIDGET CHAUDHARY) Cephalexin (Cephalexin) 500 Mg Tablet, 500 MG PO QID Prescribed by: GEOVANNA RIVERS on 04/15/192129 Clindamycin HCl (Clindamycin HCl) 300 Mg Capsule, 300 MG PO QID Prescribed by: GEOVANNA RVIERS on 12/25/18 1715 Doxycycline Hyclate (Doxycycline Hyclate) 100 Mg Tablet, 100 MG PO BID Prescribed by: JAYDEN DELGADO on 01/23/22 2340 Ferrous Sulfate (Iron) 325 Mg (65 Mg Iron) Tablet, 325 MG PO BID Prescribed by: JAYDEN DELGADO on 01/23/22 2340 Meclizine HCl (Meclizine HCl) 25 Mg Tab.chew, Unknown Dose PO, (Reported) Entered as Reported by: PRICILLA RUSSELL on 08/21/18 001 Nitrofurantoin Monohyd/M-Cryst (Macrobid 100 mg Capsule) 100 Mg Capsule, 1 TAB PO BID Prescribed by: BRIDGET CHAUDHARY on 03/09/222016 Ondansetron (Ondansetron Odt) 4 Mg Tab.rapdis, 4 MG PO Q6H PRN for NAUSEA/VOMITING Prescribed by: GEOVANNA RIVERS on 06/01/19 115 Ondansetron (Ondansetron Odt) 8 Mg Tab.rapdis, 8 MG PO Q6H PRN for NAUSE A/VOMITING Prescribed by: GEOVANNA RIVERS on 09/25/20 170 Sertraline HCl (Sertraline HCl) 25 Mg Tablet, Unknown Dose PO, (Reported) Entered as Reported by: PRICILLA RUSSELL on 08/21/1817 Tramadol HCl (Tramadol HCl) 50 Mg Tablet, 50 MG PO Q6H PRN for PAIN Prescribed by: MOSES KATZ on 12/17/18 09 Review of Systems Review of Systems Constitutional: no symptoms reported, see HPI Genitourinary: see HPI, discharge (vaginal bleeding) : No (BRIDGET CHAUDHARY) All Other Systemes Reviewed Negative Unless Noted: Yes (BRIDGET CHAUDHARY) Past Ogzudgy-Aaybty-Iqimnz Hx Patient Social History Tobacco Use?: No Use of E-Cig and/or Vaping dev: No Substance use?: No Alcohol Use?: No Pt feels they are or have been: No (BRIDGET CHAUDHARY) Immunizations Up To Date Tetanus Booster (TDap): Unknown PED Vaccines UTD: Yes First/Initial COVID19 Vaccinat: 2020 Second COVID19 Vaccination Preet: 2020 Third COVID19 Vaccination Date: 2020 (BRIDGET CHAUDHARY) Seasonal Allergies Seasonal Allergies: No (BRIDGET CHAUDHARY) Past Medical History Surgeries: Yes ("CYST" REMOVED FROM NECK AND LEFT ARM, R KNEE) Gallbladder, Orthopedic, Tubal Ligation Respiratory: Yes Asthma Cardiac: Yes Hypertension Neurological: Yes Headaches /Migraines, Neuropathy, Vertigo 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 Disorders: No Female 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 Disorders: Denies PHYSICAL THERAPY AID History: Tubal Ligation Sexually Transmitted Disease: No Genitourinary: No Gastrointestinal: No Musculoskeletal: Yes Fractures Endocrine: Yes ("borderline diabetic") Diabetes, Non-Insulin dep HEENT: Yes Chronic Ear Infection Hearing Impairment: Hard of Hearing Cancer: No Psychosocial: Yes (OCD) ADD/ADHD, Anxiety, PTSD, Bipolar, Depression Integumentary: No Recent Skin Changes Blood Disorders: No Adverse Reaction/Blood Tranf: No (BRIDGET CHAUDHARY) Family Medical History No Pertinent Family Hx, Cancer, Diabetes, Hypertension (BRIDGET CHAUDHARY) Physical Exam Vital Signs Vital Signs - First Documented 03/09/22 18:51 Temp 36.4 Pulse 87 Resp 16 B/P (MAP) 211/128 (155) Pulse Ox 96 O2 Delivery Room Air (CHANDANA DOW MD) Vital Signs Capillary Refill : Less Than 3 Seconds (BRIDGET CHAUDHARY) Height, Weight, BMI Height: 5'3.00" Weight: 220lbs. 0.0oz. 99.099383kb; 38.00 BMI Method:Stated General Appearance: WD/WN, no apparent distress Cardiovascular: normal peripheral pulses Respiratory: chest non-tender, lungs clear, normal breath sounds Gastrointestinal: normal bowel sounds, non tender, soft Neurologic/Psychiatric: no motor/sensory deficits, alert, normal mood/affect, oriented x 3 Skin: normal color, warm/dry (BRIDGET CHAUDHARY) Procedures/Interventions Suture Size: 4-0 (BRIDGET CHAUDHARY) Progress/Results/Core Measures Suspected Sepsis SIRS Temperature: Pulse: 87 Respiratory Rate: 16 Laboratory Tests 03/09/22 19:32: White Blood Count 12.4H Blood Pressure 211 /128 Mean: 155 Laboratory Tests 03/09/22 19:32: Creatinine 0.81, Platelet Count 464H, Total Bilirubin 0.2 (BRIDGET CHAUDHARY) Results/Orders Lab Results Laboratory Tests Test 03/09/22 19:23 03/09/22 19:32 Range/Units Urine Color YELLOW Urine Clarity CLEAR Urine pH 5.0 5-[address] [place] [address] >=1.030 1.016-1.022 Urine Protein 1+ H NEGATIVE Urine Glucose (UA) NEGATIVE NEGATIVE Urine Ketones NEGATIVE NEGATIVE Urine Nitrite NEGATIVE NEGATIVE Urine Bilirubin NEGATIVE NEGATIVE Urine Urobilinogen 0.2 < = 1.0 MG/DL Urine Leukocyte Esterase NEGATIVE NEGATIVE Urine RBC (Auto) 3+ H NEGATIVE Urine RBC TNTC H /HPF Urine WBC 2-5 /HPF Urine Squamous Epithelial Cells 5-10 /HPF Urine Crystals NONE /LPF Urine Bacteria FEW H /HPF Urine Casts NONE /LPF Urine Mucus MODERATE H /LPF Urine Culture Indicated YES White Blood Count 12.4 H 4.3-11.0 10^3/uL Red Blood Count 4.54 3.80-5.11 10^6/uL Hemoglobin 11.6 11.5-16.0 g/dL Hematocrit 38 35-52 % Mean Corpuscular Volume 83 80-99 fL Mean Corpuscular Hemoglobin 26 25-34 pg Mean Corpuscular Hemoglobin Concent 31 L 32-36 g/dL Red Cell Distribution Width 14.0 10.0-14.5 % Platelet Count 464 H 130-400 10^3/uL Mean Platelet Volume 8.9 L 9.0-12.2 fL Immature Granulocyte % (Auto) 0 % Neutrophils (%) (Auto) 69 42-75 % Lymphocytes (%) (Auto) 22 12-44 % Monocytes (%) (Auto) 7 0-12 % Eosinophils (%) (Auto) 2 0-10 % Basophils (%) (Auto) 0 0-10 % Neutrophils # (Auto) 8.5 H 1.8-7.8 10^3/uL Lymphocytes # (Auto) 2.7 1.0-4.0 10^3/uL Monocytes # (Auto) 0.8 0.0-1.0 10^3/uL Eosinophils # (Auto) 0.2 0.0-0.3 10^3/uL Basophils # (Auto) 0.1 0.0-0.1 10^3/uL Immature Granulocyte # (Auto) 0.1 0.0-0.1 10^3/uL Sodium Level 139 135-145 MMOL/L Potassium Level 3.6 3.6-5.0 MMOL/L Chloride Level 105 98-107 MMOL/L Carbon Dioxide Level 26 21-32 MMOL/L Anion Gap 8 5-14 MMOL/L Blood Urea Nitrogen 10 7-18 MG/DL Creatinine 0.81 0.60-1.30 MG/DL Estimat Glomerular Filtration Rate 95 BUN/Creatinine Ratio 12 Glucose Level 102 70-105 MG/DL Calcium Level 9.1 8.5-10.1 MG/DL Corrected Calcium 9.2 8.5-10.1 MG/DL Total Bilirubin 0.2 0.1-1.0 MG/DL Aspartate Amino Transf (AST/SGOT) 29 5-34 U/L Alanine Aminotransferase (ALT/SGPT) 25 0-55 U/L Alkaline Phosphatase 80 40-136 U/L Total Protein 8.2 6.4-8.2 GM/DL Albumin 3.9 3.2-4.5 GM/DL Serum Test, Qualitative NEGATIVE NEGATIVE (CHANDANA DOW MD) Vital Signs/I&O 03/09/22 20:28 Pulse 88 Resp 16 B/P (MAP) 167/119 Pulse Ox 98 O2 Delivery Room Air (CHANDANA DOW MD) Vital Signs/I&O Capillary Refill : Less Than 3 Seconds (BRIDGET CHAUDHARY) Blood Pressure Mean: 155 Departure Impression Primary Impression: Menorrhagia Qualified Codes: N92.1 - Excessive and frequent menstruation with irregular cycle Additional Impressions: Irregular menstrual bleeding Urinary tract infection Qualified Codes: N30.01 - Acute cystitis with hematuria Disposition: HOME, SELF-CARE Condition: Improved Departure-Patient Inst. Decision time for Depature: 19:45 (BRIDGET CHAUDHARY) Referrals: EDMAR OROZCO DO (PCP/Family) Primary Care Physician Patient Instructions: Heavy Periods (DC), Urinary Tract Infection, Adult (DC) Add. Discharge Instructions: Take a women's multivitamin or vitamin once daily. Follow-up with Dr. Mallory or your PCP if symptoms are not improving or worsen. Take antibiotic as prescribed for urinary tract infection. Increase water intake, 16 ounces every 2 hours while awake. Follow-up in the emergency department for new, urgent healthcare needs. All discharge instructions reviewed with patient and/or family. Voiced understanding. Scripts Nitrofurantoin Monohyd/M-Cryst (Macrobid 100 mg Capsule) 100 Mg Capsule 1 TAB PO BID, #10 CAP 0 Refills Prov: JETBRIDGET FERRIS 03/09/22 ATTENDING PHYSICIAN NOTE: I was physically present as attending physician in the emergency department during the care of this patient, but I was not directly involved in the decision making or delivery of care for this patient. (CHANDANA DOW MD) Copy Copies To 1: GERMAIN MALLORY MD; KAREN ARNETT MD, AMY ARNP Mar 09, 2022 20:00 CHANDANA DOW MD Mar 10, 2022 07:45
[2022-03-09 20:08] LABS: BACTERIA,URINE FEW /HPF; RBC,URINE TNTC /HPF
[2022-03-09] MEDS ORDERED: NITROFURANTOIN 100 MG (MACROBID) CAPSULE PO STA (20:14)
[2022-03-09] MEDS ORDERED: NITR-65 PO (20:17)
[2022-03-09 20:28] VITALS: BP 167/119
[2022-03-09 20:45] LABS: POTASSIUM 3.6 MMOL/L (3.6-5.0)
== END 2022-03-09 20:28 | disposition home or self-care (01) ==
LOC: EDUNIT# 18:39 → ER 18:42
DX: N39.0 Urinary tract infection, site not specified (principal); N92.1 Excessive and frequent menstruation with irregular cycle
CPT/HCPCS: 36415; 80053; 81000; 84703; 85025; 87088; 99283

== ENCOUNTER 2022-04-05 05:32 | Outpatient (CLI) | payer SELFPAY ==
[~2022-04-05] VITALS: Ht 160.2 cm; Wt 121.0 kg
[2022-04-06] MEDS ORDERED: SCOP1PAT10 TD (13:17)
== END 2022-04-06 13:26 | disposition home or self-care (01) ==
LOC: PREOP 05:32
PROVIDERS: ATTEND Obstetrics & Gynecology
DX: Z01.818 Encounter for other preprocedural examination (principal)

== ENCOUNTER 2022-04-12 10:21 | Day surgery (SDC) | payer OTHER ==
[2022-04-12] VITALS (11 sets, daily range): BP systolic 132–148; BP diastolic 87–107
[~2022-04-12] VITALS: Ht 160 cm; Wt 121.0 kg
[~2022-04-12 10:21] MED LIST changes: +SCOP1PAT10 TD
[2022-04-12] MEDS ORDERED: LACTATED RINGERS 1,000 ML IV PRN (11:00)
[2022-04-12] MEDS ORDERED: CLINDAMYCIN 900 MG/50 ML IVPB 50 ML IV ONE (11:00)
[2022-04-12 11:06] LABS: BASOPHILS % (AUTO) 0 % (0-10); EOSINOPHILS # (AUTO) 0.1 10^3/uL (0.0-0.3); EOSINOPHILS % (AUTO) 1 % (0-10); HEMATOCRIT 35 % (35-52); LYMPHOCYTES # (AUTO) 1.9 10^3/uL (1.0-4.0); LYMPHOCYTES % (AUTO) 19 % (12-44); MEAN CORPUSCULAR HEMOGLOBIN 25 pg (25-34); MEAN CORPUSCULAR HGB CONC 32 g/dL (32-36); MEAN CORPUSCULAR VOLUME 79 fL (80-99); MONOCYTES # (AUTO) 0.9 10^3/uL (0.0-1.0); MONOCYTES % (AUTO) 10 % (0-12); NEUTROPHILS # (AUTO) 6.7 10^3/uL (1.8-7.8); NEUTROPHILS % (AUTO) 69 % (42-75); PLATELET COUNT 367 10^3/uL (130-400); WHITE BLOOD COUNT 9.6 10^3/uL (4.3-11.0)
[2022-04-12] MEDS ORDERED: fentaNYL INJ 100 MCG/2 ML AMP ONE ×2 (11:42→14:00)
[2022-04-12] MEDS ORDERED: MIDAZOLAM 2 MG/2 ML (VERSED) VIAL ONE (11:43)
[2022-04-12] MEDS ORDERED: proPOfol 200 MG/20 ML (DIPRIVAN) VIAL IV ONE (13:28)
[2022-04-12] MEDS ORDERED: LIDOCAINE PF 2% 5 ML (XYLOCAINE) VIAL ONE (13:29)
[2022-04-12] MEDS ORDERED: ONDANSETRON 4 MG/2 ML (SDV) Z0FRAN ONE (13:29)
[2022-04-12] MEDS ORDERED: KETOROLAC 30 MG/ML VIAL ONE (13:33)
[2022-04-12] MEDS ORDERED: SEVOFLURANE (ULTANE) 15 ML INHAL SOLN ONE (13:44)
--- NOTE | 2022-04-12 13:48 | Progress Note-Pre Operative ---
Pre-Operative Progress Note Date of Available H&P: Apr 12, 2022 Date H&P Reviewed: Apr 12, 2022 Time H&P Reviewed: 13:20 History & Physical: H&P Reviewed, No changes noted Pre-Operative Diagnosis: Abnormal uterine bleeding/menorrhagia KAREN BLACKMON MD Apr 12, 2022 13:48
--- NOTE | 2022-04-12 13:49 | Progress Note-Post Operative ---
Post-Operative Progess Note Surgeon (s)/Supervisor Pigment Making (s) Surgeon KAREN BLACKMON MD Supervisor Pigment Making: None Pre-Operative Diagnosis Abnormal uterine bleeding/menorrhagia Post-Operative Diagnosis Same with pathology pending Procedure & Operative Findings Date of Procedure 04/12/22 Procedure Performed/Findings Hysteroscopy with directed biopsy and D&C Anesthesia Type General anesthesia Estimated Blood Loss Estimated blood loss (mL): Minimal Specimens/Packing Specimens Removed Directed biopsy of polypoid appearing tissue and directed biopsy of submucosal mass consistent with fibroid with pathology pending/endometrial curettings KAREN BLACKMON MD Apr 12, 2022 13:49
--- NOTE | 2022-04-12 13:52 | Discharge Inst-Surgical ---
Discharge Inst-Surgical Depart Medication/Instructions New, Converted or Re-Newed RX: Other Consults/Follow Up Patient Instructions: As directed Orders & Referrals Follow Up Appt: Call to make follow up appt. for patient in 2 weeks. Activity: Rest for 24 hours, than as tolerated. May use on Motrin/ibuprofen as needed pain or cramps Diet: As tolerated shower or tub bathe as desired. No driving for 24 hours, no alcoholic beverages for 24 hours, and nothing per vagina (no tampons, douching, or intercoarse) for 2 weeks. Patient to return to the clinic as soon as possible for: Temperature greater than 101F, Severe Pain, Foul discharge from incision or vagina, Excessive Bleeding (more than a period). Activity Activity as Tolerated: No Diet Discharge Diet: No Restrictions KAREN BLACKMON MD Apr 12, 2022 13:52
[2022-04-12] MEDS ORDERED: D5 LR IV SOLUTION 1,000 ML IV SCH (14:00)
[2022-04-12] MEDS ORDERED: KETOROLAC 30 MG/ML VIAL IVP ONE (14:00)
[2022-04-12] MEDS ORDERED: ONDANSETRON 4 MG/2 ML (SDV) Z0FRAN IVP PRN ×2 (14:00→14:15)
[2022-04-12] MEDS ORDERED: oxyCODONE/APAP 5/325MG (PERCOCET 5) TABLET PO PRN (14:00)
[2022-04-12] MEDS ORDERED: MEPERIDINE (DEMEROL) INJ 100 MG/ML IM ONE (14:00)
[2022-04-12] MEDS ORDERED: PROMETHAZINE INJ 25 MG/ML (PHENERGAN) AMP IM ONE (14:00)
[2022-04-12] MEDS ORDERED: fentaNYL INJ 100 MCG/2 ML AMP IVP ONE (14:15)
[2022-04-12] MEDS ORDERED: morphine INJ 10 MG/ML 1ML (SYR OR VIAL) IVP ONE (14:15)
--- NOTE | 2022-04-12 15:47 | Anesthesia-General Post-Op ---
General Patient Condition Mental Status/LOC: Same as Preop Cardiovascular: Satisfactory Nausea/Vomiting: Absent Respiratory: Satisfactory Pain: Controlled Complications: Absent Post Op Complications Complications None Follow Up Care/Instructions Patient Instructions None needed. Anesthesia/Patient Condition Patient Condition Patient is doing well, no complaints, stable vital signs, no apparent adverse anesthesia problems. No complications reported per nursing. RAFAEL SHAH DO Apr 12, 2022 15:47
[2022-04-12] MEDS ORDERED: KETOROLAC 30 MG/ML VIAL IV SCH (20:00)
--- NOTE | 2022-04-13 04:34 | OPERATIVE REPORT ---
DATE OF SERVICE: 04/12/2022 PREOPERATIVE DIAGNOSIS: Menorrhagia. POSTOPERATIVE DIAGNOSES: Menorrhagia with endometrial polyps and likely submucosal fibroid. PROCEDURE: Hysteroscopy with directed biopsy and D and C. DESCRIPTION OF PROCEDURE: With the patient in the supine position, under satisfactory general anesthesia, the patient was prepped and draped in the usual fashion for vaginal surgery. Urinary bladder was drained with a red Nixon catheter. Weighted speculum placed in the posterior fornix of vagina, cervix exposed and grasped anteriorly with a single tooth tenaculum. The uterus was sounded to 11 cm with a uterine sound. The cervix was then serially dilated with Timur dilators to a #20 Timur and then a #9 Hegar dilator was a final step in dilation. Hysteroscope was then introduced and using LR as a distending medium. The endometrial cavity was examined. There were several polypoid excrescences near the os of the right fallopian tube. These were biopsied directly and sent as one specimen to pathology for permanent section. There was a pale submucosal mass in the left apex of the uterine cavity. This was biopsied directly and that tissue was sent to pathology labeled appropriately as well. The endometrial cavity was then sharply curettaged in all 4 quadrants to a good uterine cry and excess tissue sent to pathology as endometrial curettings. The hysteroscope was reintroduced. Endometrial cavity examined and finding no abnormal bleeding, no remaining abnormal appearing pathology. The procedure was completely terminated. The operative instruments were removed as well as the tenaculum from the cervix. There was no bleeding from the cervical os. There was some bleeding from the puncture sites from the tenaculum. This was touched with silver nitrate to affect hemostasis. Now with hemostasis assured, sponge and needle counts were correct. The blood loss was minimal. The patient was uneventfully awakened from her general anesthesia and transferred to recovery room in stable condition with plans for discharge home. Job ID: [id number] DocumentID: [id number] Dictated Date: 04/12/2022 18:01:50 Parakeet Raiser Date: 04/13/2022 04:34:00 Dictated By: KAREN BLACKMON MD
== END 2022-04-12 15:23 | disposition home or self-care (01) ==
LOC: SDC 10:21
PROVIDERS: ATTEND Obstetrics & Gynecology
DX: N84.0 Polyp of corpus uteri (principal); E66.01 Morbid (severe) obesity due to excess calories; F17.210 Nicotine dependence, cigarettes, uncomplicated; Z68.42 Body mass index [BMI] 45.0-49.9, adult
CPT/HCPCS: 36415; 84703; 85025; 87081

== ENCOUNTER 2022-05-22 21:18 | Emergency (ER) | payer SELFPAY ==
[~2022-05-22] VITALS: Ht 160 cm; Wt 121.0 kg
[2022-05-22] MEDS ORDERED: IBUPROFEN 800 MG (MOTRIN) TAB PO STA (21:38)
--- NOTE | 2022-05-22 21:43 | ED Cough/URI ---
General Chief Complaint: COVID19 Suspect/Confirmed Stated Complaint: SORE THROAT/COUGH/FEVER Nursing Triage Note: TO ED VIA POV AND AMBULATORY TO ROOM 8 WITH C/O SORE THROAT, COUGH, FEVER THAT STARTED THIS MORNING. 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 Source: patient Exam Limitations: no limitations (RINA WHALEN APRN) History of Present Illness Date Seen by Provider: May 22, 2022 Time Seen by Provider: 21:33 Initial Comments 37-year-old female patient presents today with complaints of sore throat, cough, fever starting this morning. Patient reports temperature of 100.2 at home. Patient states she took ibuprofen, Advil, Tylenol. Last medication was Tylenol a couple hours prior to arrival. Patient also complaining of bilateral upper chest pain that is worse with coughing. Patient reports chest pain started this morning with the other symptoms. Patient complains of shortness of air. Patient denies N/V/D/C. Pt's BP at triage was elevated, this BP was taken over pt's sweatshirt. Repeat on bareskin was 145/85. Timing/Duration: this morning Severity/Quality: moderate Associated Symptoms: chest pain/soreness, cough, fever/chills, shortness of breath, sore throat (RINA WHALEN APRN) Allergies and Home Medications Allergies Coded Allergies: guaifenesin (Verified Allergy, Intermediate, ANAPHYLAXIS, 04/06/22) Iodinated Contrast Media (Unverified Allergy, Mild, 04/06/22) amoxicillin (Verified Allergy, Mild, RASH-VOMITTING, 04/06/22) hydrocodone (Verified Allergy, Mild, RASH-VOMITTING, 04/06/22) Metronidazole HCl (Verified Allergy, Unknown, 04/06/22) codeine (Unverified Allergy, Unknown, 04/06/22) levofloxacin (Unverified Allergy, Unknown, 04/06/22) metronidazole (Verified Allergy, Unknown, 04/06/22) Uncoded Allergies: Catfish (Allergy, Intermediate, 12/28/14) Shortness of air Shell fish (Allergy, Unknown, 12/28/14) Patient Home Medication List Home Medication List Reviewed: Yes (RINA WHALEN APRN) Benzonatate (Tessalon Perles) 100 Mg Capsule, 200 MG PO TID PRN for COUGH Prescribed by: Rina Whalen on 05/22/22 2245 Ferrous Sulfate (Iron) 325 Mg (65 Mg Iron) Tablet, 325 MG PO BID Prescribed by: JAYDEN DELGADO on 01/23/22 2340 Scopolamine (Transderm-Scop) 1 Mg/3 Day Patch.td72, 1 EACH TD Q72H, (Reported) Entered as Reported by: TAMEKA BESS on 04/06/22 1317 Sertraline HCl (Sertraline HCl) 25 Mg Tablet, Unknown Dose PO, (Reported) Entered as Reported by: PRICILLA RUSSELL on 08/21/18 0018 Review of Systems Review of Systems Constitutional: fever EENTM: throat pain Respiratory: cough, short of breath Cardiovascular: chest pain (RINA WHALEN APRN) Past Btyczet-Noqnxb-Vxsaxr Hx Immunizations Up To Date Tetanus Booster (TDap): Unknown PED Vaccines UTD: Yes Influenza Vaccine Up-to-Date: No; Not Current First/Initial COVID19 Vaccinat: 2020 Second COVID19 Vaccination Preet: 2020 Third COVID19 Vaccination Date: 2021 (RINA WHALEN APRN) Seasonal Allergies Seasonal Allergies: Yes (RINA WHALEN APRN) Past Medical History Surgeries: Yes ("CYST" REMOVED FROM NECK AND LEFT ARM, R KNEE) Gallbladder, Orthopedic, Tubal Ligation Respiratory: Yes Asthma Currently Using CPAP: No Currently Using BIPAP: No Cardiac: No Hypertension Neurological: Yes Headaches /Migraines, Neuropathy, Vertigo 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 Disorders: No Female 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 Disorders: Menstrual Problems COLDFUSION History: Tubal Ligation Sexually Transmitted Disease: No Genitourinary: No Gastrointestinal: No Musculoskeletal: Yes Fractures Endocrine: No Diabetes, Non-Insulin dep HEENT: Yes (GLASSES) Chronic Ear Infection Hearing Impairment: Hard of Hearing Cancer: No Psychosocial: Yes (OCD) ADD/ADHD, Anxiety, PTSD, Bipolar, Depression Integumentary: No Recent Skin Changes Blood Disorders: No Adverse Reaction/Blood Tranf: No (RINA WHALEN APRN) Family Medical History No Pertinent Family Hx, Cancer, Diabetes, Hypertension (RINA WHALEN APRN) Physical Exam Vital Signs - First Documented (CHANDANA DOW MD) Capillary Refill : Less Than 3 Seconds (RINA WHALEN APRN) Height: 5'3.00" Weight: 220lbs. 0.0oz. [id number]; 47.00 BMI Method:Stated General Appearance: WD/WN, no apparent distress HEENT: normal ENT inspection, pharynx normal Neck: supple, normal inspection Respiratory: lungs clear, normal breath sounds, no respiratory distress, no accessory muscle use, other (chest tender to palpation) Cardiovascular: no edema, no gallop, no JVD, no murmur, tachycardia Neurologic/Psychiatric: alert, normal mood/affect, oriented x 3 Skin: normal color, warm/dry (RINA WHALEN APRN) Procedures/Interventions Suture Size: 4-0 (RINA WHALEN APRN) Progress/Results/Core Measures Suspected Sepsis SIRS Temperature: Pulse: 118 Respiratory Rate: 16 Blood Pressure 171 /111 Mean: 131 (RINA WHALEN APRN) Results/Orders Lab Results Laboratory Tests Test 05/22/22 21:30 05/22/22 22:05 Range/Units Influenza Type A (RT-PCR) Not Detected Not Detecte Influenza Type B (RT-PCR) Not Detected Not Detecte SARS-CoV-2 RNA (RT-PCR) Not Detected Not Detecte Troponin I < 0.028 <0.028 NG/ML (CHANDANA DOW MD) Vital Signs/I&O 05/22/22 05/22/22 05/22/22 05/22/22 21:27 21:27 21:54 22:58 Temp 38.1 38.1 36.9 Pulse 118 98 Resp 16 16 B/P (MAP) 171/111 (131) 145/89 Pulse Ox 98 99 O2 Delivery Room Air Room Air Room Air (CHANDANA DOW MD) Vital Signs/I&O Capillary Refill : Less Than 3 Seconds (RINA WHALEN APRN) Blood Pressure Mean: 131 Progress Note #1: Time: 21:49 Progress Note Patient seen and evaluated. Flu and COVID testing initiated due to complaints of cough, sore throat, fever. EKG and troponin ordered due to complaints of upper chest pain. Ibuprofen ordered for fever. Nurse instructed to give lots of oral fluids to patient for tachycardia. Progress Note #2: Time: 22:44 Progress Note Lab results and EKG discussed with patient. Discussed that may be too early to tell if she has flu or COVID. Discussed that this could be another upper respiratory virus. Advised taking Tylenol and ibuprofen alternating for fever and discomfort. Prescription for Tessalon Perles sent to pharmacy. Patient instructed to use humidifier by bedside to help with cough at night. Patient instructed to increase water intake and decrease caffeinated beverage intake. Patient instructed to isolate until she is fever free for 24 hours without fever reducing medication. Patient's blood pressure was elevated during visit, instructed to follow-up with primary care provider regarding this. (RINA WHALEN APRN) ECG Initial ECG Impression Date: May 22, 2022 Initial ECG Impression Time: 22:08 Initial ECG Rate: 107 Initial ECG Rhythm: S.Tach Initial ECG Intervals: Normal Initial ECG Impression: Normal Initial ECG Comparisson: Unchanged (RINA WHALEN APRN) Departure Impression Primary Impression: Upper respiratory infection Disposition: 01 HOME, SELF-CARE Condition: Stable Departure-Patient Inst. Referrals: EDMAR OROZCO DO (PCP/Family) Primary Care Physician Patient Instructions: Upper Respiratory Infection ED Add. Discharge Instructions: Your test result was negative for COVID and flu. It may be too early to get a positive result. It may also be some other upper respiratory virus. Your EKG was normal and your blood test was normal. I am not concerned that your chest pain is caused by cardiac issue. Alternate Tylenol and ibuprofen every 4 hours for fever and discomfort. Take Tessalon Perles up to 3 times a day as needed for cough. Use a humidifier by your bed at night to help with coughing and nasal congestion. Increase your water intake and decrease caffeinated drinks like coffee, tea, and soda. Isolate yourself until you are fever free for 24 hours without fever reducing medication. Follow-up with your primary care provider. Return for any new or concerning symptoms, increased difficulty breathing, inability to talk in complete sentences due to trouble breathing, or worsening chest pain. All discharge instructions reviewed with patient and/or family. Voiced understanding. Scripts Benzonatate (TESSALON PERLES) 100 Mg Capsule 200 MG PO TID PRN for COUGH for 7 Days, #21 CAP 0 Refills Prov: RINA WHALEN APRN 05/22/22 ATTENDING PHYSICIAN NOTE: I was physically present as attending physician in the emergency department during the care of this patient, but I was not directly involved in the decision making or delivery of care for this patient. (CHANDANA DOW MD) RINA WHALEN APRN May 22, 2022 21:43 CHANDNAA DOW MD May 23, 2022 02:07
[2022-05-22] MEDS ORDERED: BENZ100C18 PO (22:45)
[2022-05-22] MEDS ORDERED: BENZONATATE 100 MG (TESSALON) CAPSULE PO ONE ×2 (22:53→22:55)
[2022-05-22 22:58] VITALS: BP 145/89
[2022-05-23] MEDS ORDERED: BENZONATATE 100 MG (TESSALON) CAPSULE PO SCH (09:00)
== END 2022-05-22 22:58 | disposition home or self-care (01) ==
LOC: EDUNIT# 21:18 → ER 21:20
DX: J06.9 Acute upper respiratory infection, unspecified (principal); I10 Essential (primary) hypertension; Z20.822 Contact with and (suspected) exposure to COVID-19
CPT/HCPCS: 36415; 84484; 87636; 93005

== ENCOUNTER 2022-09-02 08:38 | Emergency (ER) | payer OTHER ==
[~2022-09-02] VITALS: Ht 160 cm; Wt 117.0 kg
[2022-09-02] MEDS ORDERED: LACTATED RINGERS 1,000 ML IV ONE (09:00)
[2022-09-02 09:18] LABS: ALBUMIN 4.1 GM/DL (3.2-4.5); BASOPHILS # (AUTO) 0.1 10^3/uL (0.0-0.1); BASOPHILS % (AUTO) 0 % (0-10); EOSINOPHILS # (AUTO) 0.2 10^3/uL (0.0-0.3); EOSINOPHILS % (AUTO) 1 % (0-10); HEMATOCRIT 37 % (35-52); HEMOGLOBIN 11.4 g/dL (11.5-16.0); LYMPHOCYTES # (AUTO) 2.2 10^3/uL (1.0-4.0); LYMPHOCYTES % (AUTO) 16 % (12-44); MEAN CORPUSCULAR HEMOGLOBIN 24 pg (25-34); MEAN CORPUSCULAR HGB CONC 31 g/dL (32-36); MEAN CORPUSCULAR VOLUME 80 fL (80-99); MEAN PLATELET VOLUME 9.3 fL (9.0-12.2); MONOCYTES # (AUTO) 0.9 10^3/uL (0.0-1.0); MONOCYTES % (AUTO) 7 % (0-12); NEUTROPHILS # (AUTO) 10.7 10^3/uL (1.8-7.8); NEUTROPHILS % (AUTO) 76 % (42-75); PLATELET COUNT 452 10^3/uL (130-400); POTASSIUM 4.2 MMOL/L (3.6-5.0); WHITE BLOOD COUNT 14.1 10^3/uL (4.3-11.0)
[2022-09-02 09:19] LABS: CALCIUM 9.1 MG/DL (8.5-10.1)
[2022-09-02 09:20] LABS: TOTAL PROTEIN 8.5 GM/DL (6.4-8.2)
[2022-09-02 09:22] LABS: BILIRUBIN,TOTAL 0.5 MG/DL (0.1-1.0)
--- NOTE | 2022-09-02 09:22 | ED GI ---
General Chief Complaint: Abdominal/GI Problems Stated Complaint: ABD PAIN DIARRHEA Nursing Triage Note: ARRIVED VIA AMB TO ROOM 07 WITH COMPLAINTS OF ABD PAIN AND DIARRHEA X2 DAYS. STATES IT STARTED AFTER EATING AT [email or web address] Source of Information: Patient History of Present Illness Date Seen by Provider: Sep 02, 2022 Time Seen by Provider: 08:48 Initial Comments PT ARRIVES VIA POV FROM HOME WITH MALE. C/O GENERALIZED ABDOMINAL PAIN AND DIARRHEA SINCE AROUND 0930 YESTERDAY MORNING SINCE 0600 THIS AM, SHE HAS HAD 10-15 STOOLS. NO BLACK/BLOODY/TARRY STOOLS NO NAUSEA/VOMITING HAS HAD CHILLS, BUT HAS NOT CHECKED TEMPERATURE. DOES NOT THINK SHE HAS HAD FEVER PAIN IS CONSTANT, NOTHING WORSENS OR IMPROVES PAIN NO RELIEF WITH IMMODIUM AD AND PEPTO BISMOL SHE AND MALE S.O. BOTH ATE SAME THING AT [email or web address] YESTERDAY MORNING AROUND [id number]--BEGAN GETTING SICK IMMEDIATELY [employer] H[employer] AND CHEESE OMELET WITH HASH BROWNS AND GRAVY. SHE HAS BEEN DRINKING FLUIDS WELL YESTERDAY, AND DID CONTINUE TO EAT YESTERDAY SHE HAS NOT EATEN OR DRANK ANYTHING THIS MORNING SHE IS VOIDING A NORMAL AMOUNT AND NO URINARY SYMPTOMS NO HISTORY OF SIMILAR SHE HAS HAD PRIOR CHOLECYSTECTOMY, AND B.T.L. SHE DENIES ANY CHRONIC ILLNESSES OR DAILY MEDICATIONS, BUT PER OLD RECORDS, SHE HAS HTN, NIDDM, PSYCH ISSUES, DUB, AMONG OTHER THINGS NO RECENT ILLNESS OR ANTIBIOTIC USE. PCP: DR. 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 BLACKMON Allergies and Home Medications Allergies Coded Allergies: guaifenesin (Verified Allergy, Intermediate, ANAPHYLAXIS, 04/06/22) Iodinated Contrast Media (Unverified Allergy, Mild, 04/06/22) amoxicillin (Verified Allergy, Mild, RASH-VOMITTING, 04/06/22) hydrocodone (Verified Allergy, Mild, RASH-VOMITTING, 04/06/22) Metronidazole HCl (Verified Allergy, Unknown, 04/06/22) codeine (Unverified Allergy, Unknown, 04/06/22) levofloxacin (Unverified Allergy, Unknown, 04/06/22) metronidazole (Verified Allergy, Unknown, 04/06/22) Uncoded Allergies: Catfish (Allergy, Intermediate, 12/28/14) Shortness of air Shell fish (Allergy, Unknown, 12/28/14) Patient Home Medication List Home Medication List Reviewed: Yes Dicyclomine HCl (Dicyclomine HCl) 20 Mg Tablet, 20 MG PO Q6H Prescribed by: LYNETTE BOBBY on 09/02/22 1009 L. Acidophilus/Pectin, Ponce (Acidophilus Capsule) 7.5 Mg (30 Million Cell)-100 Mg Capsule, 2 EACH PO QID Prescribed by: LYNETTE BOBBY on 09/02/22 1009 Nitrofurantoin Monohyd/M-Cryst (Macrobid 100 mg Capsule) 100 Mg Capsule, 1 TAB PO BID Prescribed by: LYNETTE BOBBY on 09/02/22 1009 Ondansetron (Ondansetron Odt) 4 Mg Tab.rapdis, 4 MG PO Q4H Prescribed by: LYNETTE BOBBY on 09/02/22 1009 Discontinued Medications Benzonatate (Tessalon Perles) 100 Mg Capsule, 200 MG PO TID PRN for COUGH Discontinued Reason: No Longer Taking Prescribed by: Rina Hermosillo on 05/22/22 2245 Last Action: Discontinued Ferrous Sulfate (Iron) 325 Mg (65 Mg Iron) Tablet, 325 MG PO BID Discontinued Reason: No Longer Taking Prescribed by: JAYDEN DELGADO on 01/23/22 2340 Last Action: Discontinued Scopolamine (Transderm-Scop) 1 Mg/3 Day Patch.td72, 1 EACH TD Q72H, (Reported) Discontinued Reason: No Longer Taking Entered as Reported by: TAMEKA BESS on 04/06/22 1317 Last Action: Discontinued Sertraline HCl (Sertraline HCl) 25 Mg Tablet, Unknown Dose PO, (Reported) Discontinued Reason: No Longer Taking Entered as Reported by: PRICILLA RUSSELL on 08/21/18 0018 Last Action: Discontinued Review of Systems Review of Systems Constitutional: see HPI, chills Respiratory: No Symptoms Reported Cardiovascular: No Symptoms Reported Gastrointestinal: See HPI, Abdominal Pain, Diarrhea; Denies Nausea, Denies Vomiting Genitourinary: No Symptoms Reported Musculoskeletal: no symptoms reported Skin: no symptoms reported Psychiatric/Neurological: No Symptoms Reported Endocrine: No Symptoms Reported Hematologic/Lymphatic: No Symptoms Reported Past Ccptoho-Lmgnyq-Xmbtqf Hx Patient Social History Tobacco Use?: No Substance use?: No Alcohol Use?: No Immunizations Up To Date Tetanus Booster (TDap): Unknown PED Vaccines UTD: Yes First/Initial COVID19 Vaccinat: 2020 Second COVID19 Vaccination Preet: 2020 Third COVID19 Vaccination Date: 2021 COVID19 Vaccine Swamper: UNKNOWN Seasonal Allergies Seasonal Allergies: Yes Past Medical History Surgeries: Yes ("CYST" REMOVED FROM NECK AND LEFT ARM, R KNEE;D&C) Gallbladder, Orthopedic, Tubal Ligation Respiratory: Yes Asthma Currently Using CPAP: No Currently Using BIPAP: No Cardiac: Yes Hypertension Neurological: Yes Headaches /Migraines, Neuropathy, Vertigo : No 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 Disorders: Yes (D&C FOR DUB) Female 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 Disorders: Menstrual Problems 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 Sexually Transmitted Disease: No Genitourinary: No Gastrointestinal: Yes (S/P OLIVER) Gall Bladder Disease Musculoskeletal: Yes Fractures Endocrine: Yes (OBESE) Diabetes, Non-Insulin dep HEENT: Yes (GLASSES) Chronic Ear Infection Hearing Impairment: Hard of Hearing Cancer: No Psychosocial: Yes (OCD) ADD/ADHD, Anxiety, PTSD, Bipolar, Depression Integumentary: No Recent Skin Changes Blood Disorders: No Adverse Reaction/Blood Tranf: No Family Medical History No Pertinent Family Hx, Cancer, Diabetes, Hypertension Physical Exam Vital Signs Vital Signs - First Documented 09/02/22 08:50 Temp 36.5 Pulse 92 Resp 16 B/P (MAP) 138/98 (111) Pulse Ox 99 O2 Delivery Room Air Capillary Refill : Less Than 3 Seconds Height/Weight/BMI Height: 5'3.00" Weight: 220lbs. 0.0oz. 99.476633yc; 45.00 BMI Method:Stated General Appearance: WD/WN, no apparent distress, obese, other (WALKS UPRIGHT AND MOVES WITHOUT DIFFICULTY) Neck: normal inspection Respiratory: normal breath sounds, no respiratory distress, no accessory muscle use Cardiovascular: regular rate, rhythm, no murmur Gastrointestinal: normal bowel sounds, soft; No distended, No guarding, No rebound; tenderness (DIFFUSE TENDERNESS, BUT IS MOST TENDER ALL ACROSS UPPER ABDOMEN); No hernia, No mass Extremities: normal inspection, normal capillary refill Back: no CVA tenderness Neurologic/Psychiatric: lab manager II-XII nml as tested, no motor/sensory deficits, alert, normal mood/affect, oriented x 3 Skin: normal color, warm/dry Procedures/Interventions Suture Size: 4-0 Progress/Results/Core Measures Results/Orders Lab Results Laboratory Tests Test 09/02/22 08:55 09/02/22 09:40 Range/Units White Blood Count 14.1 H 4.3-11.0 10^3/uL Red Blood Count 4.67 3.80-5.11 10^6/uL Hemoglobin 11.4 L 11.5-16.0 g/dL Hematocrit 37 35-52 % Mean Corpuscular Volume 80 80-99 fL Mean Corpuscular Hemoglobin 24 L 25-34 pg Mean Corpuscular Hemoglobin Concent 31 L 32-36 g/dL Red Cell Distribution Width 15.2 H 10.0-14.5 % Platelet Count 452 H 130-400 10^3/uL Mean Platelet Volume 9.3 9.0-12.2 fL Immature Granulocyte % (Auto) 1 % Neutrophils (%) (Auto) 76 H 42-75 % Lymphocytes (%) (Auto) 16 12-44 % Monocytes (%) (Auto) 7 0-12 % Eosinophils (%) (Auto) 1 0-10 % Basophils (%) (Auto) 0 0-10 % Neutrophils # (Auto) 10.7 H 1.8-7.8 10^3/uL Lymphocytes # (Auto) 2.2 1.0-4.0 10^3/uL Monocytes # (Auto) 0.9 0.0-1.0 10^3/uL Eosinophils # (Auto) 0.2 0.0-0.3 10^3/uL Basophils # (Auto) 0.1 0.0-0.1 10^3/uL Immature Granulocyte # (Auto) 0.1 0.0-0.1 10^3/uL Neutrophils % (Manual) 78 % Lymphocytes % (Manual) 12 % Monocytes % (Manual) 9 % Eosinophils % (Manual) 1 % Platelet Estimate Increased Blood Morphology Comment Normal Sodium Level 136 135-145 MMOL/L Potassium Level 4.2 3.6-5.0 MMOL/L Chloride Level 106 98-107 MMOL/L Carbon Dioxide Level 23 21-32 MMOL/L Anion Gap 7 5-14 MMOL/L Blood Urea Nitrogen 8 7-18 MG/DL Creatinine 0.82 0.60-1.30 MG/DL Estimat Glomerular Filtration Rate 94 BUN/Creatinine Ratio 10 Glucose Level 110 H 70-105 MG/DL Calcium Level 9.1 8.5-10.1 MG/DL Corrected Calcium 9.0 8.5-10.1 MG/DL Magnesium Level 2.4 1.6-2.4 MG/DL Total Bilirubin 0.5 0.1-1.0 MG/DL Aspartate Amino Transf (AST/SGOT) 18 5-34 U/L Alanine Aminotransferase (ALT/SGPT) 19 0-55 U/L Alkaline Phosphatase 88 40-136 U/L Total Protein 8.5 H 6.4-8.2 GM/DL Albumin 4.1 3.2-4.5 GM/DL Amylase Level 32 25-125 U/L Lipase 27 8-78 U/L Serum Test, Qualitative NEGATIVE NEGATIVE Urine Color YELLOW Urine Clarity CLOUDY Urine pH 5.5 5-9 Urine Specific Milligan >=1.030 1.016-1.022 Urine Protein TRACE H NEGATIVE Urine Glucose (UA) NEGATIVE NEGATIVE Urine Ketones TRACE H NEGATIVE Urine Nitrite NEGATIVE NEGATIVE Urine Bilirubin NEGATIVE NEGATIVE Urine Urobilinogen 0.2 < = 1.0 MG/DL Urine Leukocyte Esterase 2+ H NEGATIVE Urine RBC (Auto) 2+ H NEGATIVE Urine RBC 10-25 H /HPF Urine WBC 25-50 H /HPF Urine Squamous Epithelial Cells 5-10 /HPF Urine Crystals NONE /LPF Urine Bacteria MODERATE H /HPF Urine Casts NONE /LPF Urine Mucus NEGATIVE /LPF Urine Culture Indicated YES My Orders Orders - LYNETTE BOBBY DO Ed Iv/Invasive Line Start (09/02/22 08:47) Monitor-Rhythm Ecg Trace Only (09/02/22 08:47) Amylase (09/02/22 08:47) Cbc With Automated Diff (09/02/22 08:47) Comprehensive Metabolic Panel (09/02/22 08:47) Hcg,Qualitative Serum (09/02/22 08:47) Lipase (09/02/22 08:47) Magnesium (09/02/22 08:47) Ua Culture If Indicated (09/02/22 08:47) Ed Iv/Invasive Line Start (09/02/22 08:47) Lactated Ringers (Lr 1000 Ml Iv Solution (09/02/22 09:00) Manual Differential (09/02/22 08:55) Ct Abdomen/Pelvis Wo (09/02/22 09:36) Stool Culture (09/02/22 09:43) Fecal Wbc (09/02/22 09:43) C Difficile Ag + Toxin A/B. (09/02/22 09:43) Rotavirus Antigen (09/02/22 09:43) Isolation Central Supply Req (09/02/22 09:43) Urine Culture (09/02/22 09:40) Medications Given in ED Current Medications Medications Dose Ordered Sig/Felisha Route Start Time Stop Time Status Last Admin Dose Admin Lactated Ringer's 1,000 ml @ 0 mls/hr Q0M ONCE IV 09/02/22 09:00 09/02/22 09:01 DC 09/02/22 09:23 1,000 MLS/HR Vital Signs/I&O 09/02/22 08:50 Temp 36.5 Pulse 92 Resp 16 B/P (MAP) 138/98 (111) Pulse Ox 99 O2 Delivery Room Air Blood Pressure Mean: 111 Progress Progress Note : Progress Note GIVEN: -IV FLUIDS PT DID HAVE A STOOL DURING ER STAY, SENT TO LAB AND TESTS ORDERED. VITALS STABLE--AFIBRILE, NO TACHYCARDIA, NO HYPOTENSION. REVIEWED PRIOR RECORDS, MULTITUDE OF ER VISITS, WITH SINGLE OUTPATIENT PROCEDURE. Diagnostic Imaging Comments CT ABDOMEN/PELVIS--PER RADIOLOGIST REPORT AT 1006 FINDINGS: Lower chest: The lung bases are clear. No pericardial or pleural effusion. Peritoneum: No free intraperitoneal air or fluid. Liver and biliary system: Unenhanced liver is normal. Cholecystectomy. No biliary duct dilatation. Spleen and Pancreas: Spleen is normal. Unenhanced pancreas is grossly normal. Adrenals: Unchanged 5.5 x 3.8 cm mass in the right adrenal gland which contains fat has soft tissues indicative of myelolipoma. Left adrenal gland is normal. tract: No renal or ureteral calculi. No obstructive uropathy. Urinary bladder is decompressed. Uterus and ovaries are normal in appearance. GI tract: Stomach is decompressed. No bowel obstruction. No pericolonic inflammatory changes. Normal appendix. Fluid is present throughout the colon compatible with the patient's known diarrhea. Vasculature and Lymph nodes: Normal caliber aorta. No abdominal or pelvic lymphadenopathy. Musculoskeletal: No concerning osseous lesion. IMPRESSION: 1. No acute obstructive or inflammatory process. 2. Fluid-filled colon is compatible with known diarrhea. No colitis or diverticulitis. Departure Impression Primary Impression: Gastroenteritis Additional Impression: Urinary tract infection Disposition: HOME, SELF-CARE Condition: Stable Departure-Patient Inst. Decision time for Depature: 10:07 Referrals: EDMAR OROZCO DO (PCP/Family) Primary Care Physician Patient Instructions: [id number], Urinary Tract Infection, Adult ED Add. Discharge Instructions: CLEAR LIQUIDS--WATER, BROTH, JELLO, GATORADE BRATS DIET--BANANAS, RICE, APPLESAUCE, TOAST, SALTINES FOLLOW UP WITH [facility] IN 2-3 DAYS IF NO BETTER, RETURN TO ER IF WORSE All discharge instructions reviewed with patient and/or family. Voiced understanding. Scripts Ondansetron (Ondansetron Odt) 4 Mg Tab.rapdis 4 MG PO Q4H for Nausea/Vomiting, #10 TAB Prov: LYNETTE BOBBY DO 09/02/22 Nitrofurantoin Monohyd/M-Cryst (Macrobid 100 mg Capsule) 100 Mg Capsule 1 TAB PO BID, #20 CAP Prov: LYNETTE BOBBY DO 09/02/22 L. Acidophilus/Pectin, Ponce (Acidophilus Capsule) 7.5 Mg (30 Million Cell)-100 Mg Capsule 2 EACH PO QID, #40 CAP Prov: LYNETTE BOBBY DO 09/02/22 Dicyclomine HCl (Dicyclomine HCl) 20 Mg Tablet 20 MG PO Q6H for Abdominal Pain, #20 TAB Prov: LYNETTE BOBBY DO 09/02/22 Work/School Note: Work Release Form Date Seen in the Emergency Department: Sep 02, 2022 Return to Work: Sep 04, 2022 LYNETTE BOBBY DO Sep 02, 2022 09:22
[2022-09-02 09:24] LABS: CREATININE SERUM 0.82 MG/DL (0.60-1.30)
[2022-09-02 09:27] LABS: MAGNESIUM 2.4 MG/DL (1.6-2.4)
[2022-09-02 09:33] LABS: EOSINOPHILS % (MANUAL) 1 %; LYMPHOCYTES % (MANUAL) 12 %; MONOCYTES % (MANUAL) 9 %; NEUTROPHILS % (MANUAL) 78 %
[2022-09-02 09:34] LABS: PLATELET ESTIMATE Increased; RBC MORPH Normal
[2022-09-02 09:50] LABS: BILIRUBIN,URINE NEGATIVE (NEGATIVE); CLARITY,URINE CLOUDY; COLOR,URINE YELLOW; GLUCOSE, URINE (UA) NEGATIVE (NEGATIVE); KETONES,URINE TRACE (NEGATIVE); LEUKOCYTE ESTERASE ,URINE 2+ (NEGATIVE); NITRITE,URINE NEGATIVE (NEGATIVE); PH,URINE 5.5 (5-9); PROTEIN,URINE TRACE (NEGATIVE)
--- NOTE | 2022-09-02 10:02 | Diagnostic Imaging Report ---
CT ABDOMEN/PELVIS WO TECHNIQUE: Unenhanced CT imaging of the abdomen and pelvis was performed. 2-D reformats are created and submitted for interpretation. Automatic exposure controls were utilized to optimize patient dose. INDICATION: Abdominal pain and diarrhea. COMPARISON: 01/23/2022 FINDINGS: Lower chest: The lung bases are clear. No pericardial or pleural effusion. Peritoneum: No free intraperitoneal air or fluid. Liver and biliary system: Unenhanced liver is normal. Cholecystectomy. No biliary duct dilatation. Spleen and Pancreas: Spleen is normal. Unenhanced pancreas is grossly normal. Adrenals: Unchanged 5.5 x 3.8 cm mass in the right adrenal gland which contains fat has soft tissues indicative of myelolipoma. Left adrenal gland is normal. tract: No renal or ureteral calculi. No obstructive uropathy. Urinary bladder is decompressed. Uterus and ovaries are normal in appearance. GI tract: Stomach is decompressed. No bowel obstruction. No pericolonic inflammatory changes. Normal appendix. Fluid is present throughout the colon compatible with the patient's known diarrhea. Vasculature and Lymph nodes: Normal caliber aorta. No abdominal or pelvic lymphadenopathy. Musculoskeletal: No concerning osseous lesion. IMPRESSION: 1. No acute obstructive or inflammatory process. 2. Fluid-filled colon is compatible with known diarrhea. No colitis or diverticulitis. Dictated by: Dictated on workstation # [id number]
[2022-09-02 10:04] LABS: BACTERIA,URINE MODERATE /HPF; WBC,URINE 25-50 /HPF
[2022-09-02] MEDS ORDERED: ONDA4TAB11 PO (10:09)
[2022-09-02] MEDS ORDERED: NITR-65 PO (10:09)
[2022-09-02] MEDS ORDERED: DICY20TA PO (10:09)
[2022-09-02] MEDS ORDERED: L. A1CAP11 PO (10:09)
[2022-09-02 10:19] VITALS: BP 150/93
== END 2022-09-02 10:19 | disposition home or self-care (01) ==
LOC: EDUNIT# 08:38 → ER 08:42
DX: K52.9 Noninfective gastroenteritis and colitis, unspecified (principal); N39.0 Urinary tract infection, site not specified; E66.9 Obesity, unspecified; Z68.42 Body mass index [BMI] 45.0-49.9, adult; Z90.49 Acquired absence of other specified parts of digestive tract; Z88.0 Allergy status to penicillin; Z88.1 Allergy status to other antibiotic agents
CPT/HCPCS: 36415; 74176; 80053; 81000; 82150; 83690; 83735; 84703; 85007; 85027; 87015; 87045; 87046; 87088; 87324; 87425; 87449; 87899